=== PATIENT | female | born 1955 | race Asian ===

== ENCOUNTER 2016-08-19 07:30 | Inpatient (IN) | payer OTHER ==
[2016-04-29 13:32] VITALS: BMI 32.0
--- NOTE | 2016-04-29 14:02 | PAT Medication Instructions ---
Service Date Apr 29, 2016. Current Home Medication List Acetaminophen-Aspirin Buffered (Excedrin Back & Body), 2 TAB PO BID PRN for RN Glucosamine-Chondroitin (Glucosamine & Chondroitin 500-400 mg), 1 TAB PO QPM Medication Instructions For Your Scheduled Surgery - Hold the following medications 2 weeks prior to surgery: Glucosamine-Chondroitin (Glucosamine & Chondroitin 500-400 mg), 1 TAB PO QPM Acetaminophen-Aspirin Buffered (Excedrin Back & Body), 2 TAB PO BID PRN for RN ( check with surgeon for instructions) If you have any questions please call us at [phone] (Kayla Bauer PA-C) or [phone] or [phone]
--- NOTE | 2016-04-29 14:53 | DIAGNOSTIC IMAGING REPORT ---
CHEST 2 VIEWS ROUTINE CLINICAL HISTORY: PAT preoperative evaluation COMPARISON STUDY: No previous studies for comparison. FINDINGS: The bones soft tissues and hemidiaphragms are normal. The cardiomediastinal silhouette is normal. The lungs are clear. The pulmonary vasculature is normal. IMPRESSION: Negative chest. Electronically signed by: Fer Caceres M.D. 04/29/2016 2:51 PM
[2016-04-29 14:56] LABS: BASO % 0.7 %; BASO ABS # 0.04 K/uL (0-0.2); EOS % 4.1 %; HEMATOCRIT 40.1 % (37-47); LYMPH % 40.1 %; LYMPH ABS # 2.27 K/uL (1.2-3.4); MEAN CELL VOLUME 60.2 fL (80-100); MEAN CORPUSCULAR HEMOGLOBIN 18.6 pg (25-34); MEAN CORPUSCULAR HGB CONC 30.9 g/dl (32-36); MONO % 9.5 %; NEUT % 45.6 %; PLATELET COUNT 246 K/uL (130-400); RED BLOOD COUNT 6.66 M/uL (4.2-5.4); WHITE BLOOD COUNT 5.66 K/uL (4.8-10.8)
[2016-04-29 15:16] LABS: COMPLETE YES; MICROCYTOSIS PRESENT
[2016-04-29 15:23] LABS: BUN/CREATININE RATIO 41.5 (10-20); CALCIUM 9.3 mg/dl (8.5-10.1); CREATININE 0.67 mg/dl (0.60-1.20); POTASSIUM 3.9 mmol/L (3.5-5.1)
[2016-04-29 15:41] LABS: MANUAL MICROSCOPIC REQUIRED? YES; URINE APPEARANCE CLEAR (CLEAR); URINE BILIRUBIN NEG (NEG); URINE COLOR YELLOW; URINE NITRITE NEG (NEG); URINE PH 5.5 (4.5-7.5); URINE SPECIFIC GRAVITY 1.025 (1.000-1.030); UROBILINOGEN NEG (NEG)
[2016-04-29 15:42] LABS: REVIEW REQ? NO
[2016-04-29 15:59] LABS: URINE BACTERIA NEG (NEG); URINE RBC 0-4 /hpf (0-4)
[2016-08-10 12:06] VITALS: BMI 32.0
[2016-08-10 16:34] LABS: BASO % 0.5 %; BASO ABS # 0.04 K/uL (0-0.2); HEMATOCRIT 39.5 % (37-47); IG% 0.1 %; LYMPH % 31.6 %; LYMPH ABS # 2.37 K/uL (1.2-3.4); MEAN CELL VOLUME 59.8 fL (80-100); MEAN CORPUSCULAR HEMOGLOBIN 18.8 pg (25-34); MEAN CORPUSCULAR HGB CONC 31.4 g/dl (32-36); MONO % 5.5 %; NEUT % 58.3 %; PLATELET COUNT 240 K/uL (130-400); WHITE BLOOD COUNT 7.49 K/uL (4.8-10.8)
[2016-08-10 16:56] LABS: COMPLETE YES; MICROCYTOSIS PRESENT; POLYCHROMASIA 1+; TARGET CELLS 1+
[2016-08-10 17:58] LABS: BUN/CREATININE RATIO 24.6 (10-20); CALCIUM 9.2 mg/dl (8.5-10.1); CREATININE 0.65 mg/dl (0.60-1.20); POTASSIUM 4.2 mmol/L (3.5-5.1)
[2016-08-10 18:59] LABS: URINE APPEARANCE CLEAR (CLEAR); URINE BILIRUBIN NEG (NEG); URINE COLOR YELLOW; URINE EPITHELIAL CELL AUTO 0-5 /lpf (0-5); URINE NITRITE NEG (NEG); URINE SPECIFIC GRAVITY 1.013 (1.000-1.030); UROBILINOGEN NEG (NEG)
[2016-08-10 19:01] LABS: MANUAL MICROSCOPIC REQUIRED? NO; REVIEW REQ? NO
--- NOTE | 2016-08-18 13:03 | HISTORY & PHYSICAL EXAMINATION ---
DATE OF ADMISSION: 08/19/2016 The patient presents to our office with complaint of back and bilateral leg pain, specifically proximal thighs and groin. These are reproduced with prolonged standing and walking. She does obtain some relief when sitting in a recliner. This has become progressive over the years. She has trialed epidural injections in the past with Dr. Zayas, which failed to provide long-term relief. She takes Excedrin and Tylenol for pain control. Denies bowel or bladder dysfunction. MEDICAL HISTORY: The patient's medical history is significant for cancer 2004, spinal stenosis. SURGICAL HISTORY: Significant for cataracts, total OHE, tonsillectomy. ALLERGIES: None listed. MEDICATIONS: Excedrin. SOCIAL HISTORY: She is single. She does not work. Alcohol is social. Tobacco none. FAMILY HISTORY: Significant for diabetes, hypertension and stroke. REVIEW OF SYSTEMS: Significant for none listed. PHYSICAL EXAMINATION: VITAL SIGNS: 5 foot 5, 195 pounds. HEENT: Speech appropriate. CARDIOPULMONARY: No gross abnormalities. ABDOMEN: Soft, nondistended. GENITOURINARY: Deferred. NEUROLOGIC: Cranial nerves II-XII grossly intact. MUSCULOSKELETAL: She ambulates with a stooped posture, strength is intact bilaterally. No ankle clonus. Negative tension signs. ASSESSMENT: Degenerative scoliosis, spinal stenosis, spondylolisthesis, multilevel. PLAN: At this point in time, we have reviewed surgical intervention which would require lumbar decompression with instrumented fusion T12-L4. Risks, benefits, pros, cons, and alternatives were outlined in detail. She would like to proceed with the above-mentioned surgical planning.
[~2016-08-19] VITALS: Ht 165.1 cm; Wt 94.3 kg
[2016-08-19] VITALS (12 sets, daily range): BP systolic 90–156; BP diastolic 61–84; PULSE 88–107; TEMP 36.3–36.8; O2SAT 94–100; Ht 165.1 cm; Wt 94.3 kg
[~2016-08-19 07:30] MED LIST: ACETTAB19 PO; CEFAZOLIN 1000MG/55 ML D5W IV SCH; LACTATED RINGER'S 1000ML 1,000 ML IV SCH; METO25TA3 PO
--- NOTE | 2016-08-19 07:31 | History & Physical Bridge Note ---
H&P Re-Evaluation Bridge Note: I have examined the patient, reviewed the History & Physical and in the interval since the performance of the History & Physical I have noted the following changes of clinical significance: No changes noted
[2016-08-19] MEDS ORDERED: FENTANYL CITRATE INJ 50 MCG/1 ML 2 ML VIAL ONE ×2 (08:25→08:39)
[2016-08-19] MEDS ORDERED: LIDOCAINE HCL 2% 2 ML VIAL (20MG/ML) ONE ×2 (08:25→10:45)
[2016-08-19] MEDS ORDERED: HYDROmorphone INJ 2 MG/ML SYR/VIAL ONE (08:39)
[2016-08-19] MEDS ORDERED: MIDAZOLAM HCL 1 MG/ML 2ML VIAL ONE (08:39)
[2016-08-19] MEDS ORDERED: SODIUM CHLORIDE 0.9% PF 50 ML VIAL ONE (09:17)
[2016-08-19] MEDS ORDERED: BUPIVACAINE/EPINEPHRINE 0.5% MPF 1:200,000 30 ML VIAL ONE (09:17)
[2016-08-19] MEDS ORDERED: ALBUMIN HUMAN 5% 12.5 GM/250 ML VIAL IV ONE (09:49)
[2016-08-19] MEDS ORDERED: LACTATED RINGER'S 1000ML 1,000 ML IV PRN (09:58)
[2016-08-19] MEDS ORDERED: FENTANYL CITRATE INJ 50 MCG/1 ML 2 ML VIAL IV PRN (10:00)
[2016-08-19] MEDS ORDERED: MoRPHine SULFATE 10 MG/ML CARP/VIAL IV PRN (10:00)
[2016-08-19] MEDS ORDERED: ONDANSETRON INJ 2 MG/ML 2 ML VIAL IV PRN ×2 (10:00→12:45)
[2016-08-19] MEDS ORDERED: DEXAMETHASONE SOD INJ 4 MG/ML VIAL ONE (10:45)
[2016-08-19] MEDS ORDERED: ROCURONIUM BROMIDE 10 MG/ML 5 ML VIAL ONE (10:45)
[2016-08-19] MEDS ORDERED: PHENYLEPHRINE 100MCG/ML 5ML SYR ONE (10:45)
[2016-08-19] MEDS ORDERED: PROPOFOL IV EMULSION 10 MG/ML 20 ML VIAL IV ONE (10:45)
[2016-08-19] MEDS ORDERED: PHENYLEPHRINE HCL INJ 10 MG/ML VIAL ONE (10:45)
[2016-08-19] MEDS ORDERED: ONDANSETRON INJ 2 MG/ML 2 ML VIAL ONE (10:45)
[2016-08-19] MEDS ORDERED: LARYING-O-JET KIT (LTA) EXT ONE ×2 (11:07)
[2016-08-19] MEDS ORDERED: CEFAZOLIN SOD 1 GM VIAL ONE (11:07)
[2016-08-19 11:41] LABS: ISTAT CREATININE 0.5 mg/dl (0.6-1.3); ISTAT HEMOGLOBIN 11.2 g/dl (12.0-16.0); ISTAT IONIZED CALCIUM 1.11 mmol/l (1.12-1.32)
[2016-08-19] MEDS ORDERED: GLYCOPYRROLATE INJ 0.2 MG/ML VIAL ONE (11:44)
[2016-08-19] MEDS ORDERED: NEOSTIGMINE METHYLSULFATE 1 MG/ML 10ML VIAL ONE (11:44)
[2016-08-19] MEDS ORDERED: METOPROLOL TARTRATE 1 MG/ML VIAL ONE (11:53)
[2016-08-19] MEDS ORDERED: FLOSEAL HEMOSTATIC MATRIX 10ML TOP ONE (12:37)
[2016-08-19] MEDS ORDERED: BACITRACIN 50,000 UNITS IR ONE (12:37)
[2016-08-19] MEDS ORDERED: SODIUM CHLORIDE 0.9% 1000ML 1,000 ML IV SCH (12:38)
--- NOTE | 2016-08-19 12:38 | [facility] Post Operative Brief Note ---
Immediate Operative Summary Operative Date Aug 19, 2016. Pre-Operative Diagnosis Degenerative scoliosis, spinal stenosis, spondylolisthesis, multilevel Post-Operative Diagnosis Degenerative scoliosis, spinal stenosis, spondylolisthesis, multilevel Procedure(s) Performed T11-L4 Lumbar Laminectomy, Decompression, Pedicle Screw Fixation, Placement of Interbody Device at L2-L3 and L3-L4, T11-L4 Posterolateral Fusion, Application of Susan Autograft, Bone Morphogenetic Protein, Iliac Kinzers Fixation Surgeon Dr. Domenico Kebede Floor Mechanic Surgeon(s) Margaret Alcala PA-C Estimated Blood Loss 950mL Findings scoli/stenosis Specimens None per surgeon
[2016-08-19] MEDS ORDERED: SOD PHOSPHATE/SOD BIPHOSPHATE ENEMA 132 ML BTL PR PRN (12:45)
[2016-08-19] MEDS ORDERED: LORAZEPAM INJ 0.5 MG in SYRINGE 0 ML IV PRN (12:45)
[2016-08-19] MEDS ORDERED: PROMETHAZINE HCL INJ 12.5 MG in SODIUM CHLORIDE 0.9% 50ML 50 ML IV PRN (12:45)
[2016-08-19] MEDS ORDERED: DO NOT ADMINISTER FLU VACCINE PRN ×3 (12:45)
[2016-08-19] MEDS ORDERED: hydrOXYzine HCL 25 MG TAB PO PRN (12:45)
[2016-08-19] MEDS ORDERED: ALUMINUM/MAGNESIUM SUSP 30 ML UDC PO PRN (12:45)
[2016-08-19] MEDS ORDERED: ACETAMINOPHEN IV 100 ML IV PRN (12:45)
[2016-08-19] MEDS ORDERED: DO NOT ADMINISTER PNEUMOCOCCAL VACCINE PRN ×2 (12:45)
[2016-08-19] MEDS ORDERED: METOCLOPRAMIDE HCL INJ 5 MG/ML 2 ML VIAL IV PRN (12:45)
[2016-08-19] MEDS ORDERED: MAGNESIUM HYDROXIDE SUSP 30 ML UDC PO PRN (12:45)
[2016-08-19] MEDS ORDERED: FAMOTIDINE 20 MG TAB PO PRN (12:45)
[2016-08-19] MEDS ORDERED: BISACODYL 10 MG SUPP PR PRN (12:45)
[2016-08-19] MEDS ORDERED: NALOXONE HCL 0.4 MG/1 ML VIAL/CARP IV PRN ×2 (12:45)
--- NOTE | 2016-08-19 12:48 | DIAGNOSTIC IMAGING REPORT ---
INTRAOPERATIVE FLUOROSCOPIC IMAGES OF THE LUMBAR SPINE CLINICAL HISTORY: T11-L4 DECOMPRESSION/FUSION/INTERBODY COMPARISON STUDY: No previous studies for comparison. Fluoroscopy time: 40 seconds. FINDINGS: 5 fluoroscopic images were submitted for interpretation. Exact localization is difficult on this exam although there is a 2 level discectomy, likely at the L2-L3 and L3-L4 levels with interbody spacer placement. There are bilateral pedicle screws which are likely at the T11, T12, L1, L2, L3 and L4 levels. IMPRESSION: Findings consistent with L2-L3 and L3-L4 discectomies with T11-L4 bilateral pedicle screw fusion. Electronically signed by: Ciro Ward M.D. 08/19/2016 12:46 PM Dictated Date/Time: 08/19/2016 12:44 PM
--- NOTE | 2016-08-19 13:03 | OPERATIVE REPORT ---
DATE OF OPERATION: 08/19/2016 PREOPERATIVE DIAGNOSES: Spinal stenosis, degenerative scoliosis, spondylolisthesis. POSTOPERATIVE DIAGNOSES: Same. PROCEDURE PERFORMED: 1. Lumbar decompression, medial facetectomy, and foraminotomy L1-L2, L2-L3, L3-L4. 2. Posterior spinal fusion T10-L4. 3. Placement posterior segmental instrumentation using Medicrea rods and screws T11 to L4. 4. Interbody fusion L2-L3, L3-L4. 5. Placement of PEEK cage 10 x 26 at L2-L3, 9 x 26 at L3-L4. 6. Placement of locally harvested morcellized autograft in posterior gutters. 7. Placement of Infuse collagen sponge combined with Mastergraft in posterior gutters and Susan bone graft in the interbody spacers. SURGEON: Dr. Domenico Kebede. BEAN SNIPPER: Due to the complex nature of the procedure, the entire surgery was performed with the medical assistant ob gyn of Margaret Cobian PA-C. The assistant case manager, under direct supervision, was involved in the actual performance of all aspects of the surgical procedure including hemostasis, tissue retraction and incision, instrument management, patient positioning, and wound closure. ANESTHESIA: General. DISPOSITION: The patient awakened and taken to PACU in stable condition. HISTORY OF PATIENT'S PROBLEMS: This is a 61-year-old female who presents with above-mentioned diagnosis. After failing an extensive course of nonoperative care, elected to undergo the above-mentioned procedure. Risks, benefits, pros, cons, and alternatives were outlined in detail preoperatively. PROCEDURE: The patient was met preoperatively and the case discussed and all questions were addressed. At that point the patient was taken back to operative suite and after undergoing successful general intubation via department of anesthesia was placed in prone position on Alli table atop Murphy frame. All bony prominences were well padded and the eyes were inspected to ensure there was no external pressure placed upon them. At this point the thoracolumbar spine was prepped and draped in normal sterile fashion. Sharp dissection with the assistance of Bovie cautery was performed down to and exposing the lamina and transverse processes of T10, T11, 12, L1, L2, L3 and L4. From a caudal to cephalad fashion, complete laminectomy of L3, L2 and L1 was performed addressing severe lateral recess foraminal disease. Pedicle screws were then placed in T11, 12, L1, L2, L3, L4 bilaterally with assistance of fluoroscopy and through a transforaminal approach on the right, a complete diskectomy of L2-3 was performed, endplates curetted to subcortical bleeding bone and a 10 x 26 mm PEEK cage filled with Susan bone grafting tapped into position. I then proceeded L3-L4 on the left through a transforaminal approach a complete discectomy was performed, endplates curetted to subcortical bleeding bone and a 9 x 26 mm PEEK cage filled with Susan bone grafting tapped into position. Appropriate sized rods were then contoured, locked into final position bilaterally and transverse processes and lamina of T10, T11, T12, L1, L2, L3, L4 burred to subcortical bleeding bone. Infuse collagen sponge combined with Mastergraft and locally harvested morcellized autograft was placed in the posterior gutters. A 7 flat SARAH drain was inserted. Incision was closed with 1-0 Vicryl in the fascia, 2-0 Vicryl subcutaneously, 4-0 Monocryl for final skin closure. Steri-Strips and sterile dressing was placed. The patient was awakened and taken to PACU in stable condition. I attest to the content of the Intraoperative Record and any orders documented therein. Any exceptio ns are noted below.
[2016-08-19] MEDS ORDERED: HYDROmorphone HCL 0.5MG/ML 50 ML CASSETTE ONE (13:13)
--- NOTE | 2016-08-19 14:14 | Anesthesiology Progress Note ---
Anesthesia Post Op Note Date & Time Aug 19, 2016 at 14:12 Vital Signs Pain Intensity: 5 Vital Signs Past 12 Hours Date Time Temp Pulse Resp B/P Pulse Ox O2 Delivery O2 Flow Rate FiO2 08/19/16 14:03 36.6 88 16 107/67 100 Mask 5 08/19/16 13:58 105/63 08/19/16 13:57 89 10 08/19/16 13:57 89 10 100 08/19/16 13:53 101/59 08/19/16 13:52 90 12 08/19/16 13:52 90 12 08/19/16 13:48 100/55 08/19/16 13:47 87 11 08/19/16 13:47 87 11 08/19/16 13:46 101/55 08/19/16 13:43 100/58 08/19/16 13:42 88 18 08/19/16 13:42 89 18 08/19/16 13:41 90 14 100 08/19/16 13:41 89 14 08/19/16 13:38 99/63 08/19/16 13:36 89 21 100 08/19/16 13:36 88 21 08/19/16 13:33 106/66 08/19/16 13:31 84 18 100 08/19/16 13:31 85 18 08/19/16 13:29 107/67 08/19/16 13:26 89 16 100 08/19/16 13:26 88 16 08/19/16 13:23 97/58 08/19/16 13:21 89 15 100 08/19/16 13:21 89 15 08/19/16 13:20 108/66 08/19/16 13:15 91 15 111/67 100 Mask 10 08/19/16 13:11 36.4 90 12 108/66 100 Mask 10 08/19/16 07:50 36.8 107 20 152/84 96 Room Air Notes Mental Status: alert / awake / arousable, participated in evaluation Pt Amnestic to Procedure: Yes Nausea / Vomiting: adequately controlled Pain: adequately controlled Airway Patency, RR, SpO2: stable & adequate BP & HR: stable & adequate Hydration State: stable & adequate Anesthetic Complications: no major complications apparent Pt doing well. Hemodynamically stable. On O2 via facemask only because she does not tolerate a nasal cannula which she told us pre-op. Dr. Kebede asked for one unit of RBCs to be given intra-op given the pt's HOCM, phenylephrine requirement , and EBL of about 1000 mL.
[2016-08-19] MEDS: HYDROmorphone HCL 0.5MG/ML 50 ML CASSETTE IV PRN ×2 (15:03→23:15)
[2016-08-19] MEDS ORDERED: NURSING DECISION MEDICATION ORDER SCH (15:45)
[2016-08-19] MEDS ORDERED: ARTIFICIAL TEARS OP SOLN OP PRN ×2 (15:45)
[2016-08-19] MEDS ORDERED: RXC5 PO (16:00)
--- NOTE | 2016-08-19 16:01 | Discharge Instructions ---
Discharge Instructions Admission Reason for Admission: Spinal Stenosis Discharge Discharge Diagnosis / Problem: stenosis Discharge Goals Goal(s): Improve function Activity Recommendations Activity Limitations: per Instructions/Follow-up section . Instructions / Follow-Up Instructions / Follow-Up ACTIVITY RECOMMENDATIONS: SELF CARE INSTRUCTIONS AFTER THORACIC/LUMBAR FUSIONS 1. You may walk to your tolerance. It is good exercise for your legs and back. Expect some back and intermittent leg aches and pains. 2. You may perform "counter-top" level activities (make a sandwich, ji with a project, etc.). 3. No bending or lifting of more than 10 pounds or back twisting of any nature (roll like a log when turning in bed). 4. You may ride in a car for 20-30 minutes at a time. No driving until after your first visit with your doctor. 5. Frequent changes of position and restricting sitting to 30 minutes at a time will help limit the amount of back spasms and stiffness you may experience. 6. You may discontinue the use of ambulatory aids (cane, crutches, etc.) once your strength and confidence allow. 7. You may digital x ray service engineer the shower and let water strike your incision when you arrive home at least once daily. Do not take a tub bath, sit in a hot tub or go into a swimming pool until after your first recheck in the office. SPECIAL CARE INSTRUCTIONS: VERY IMPORTANT TO READ AND REVIEW A. Your surgical incision has been closed with a cosmetic suture under the skin that will dissolve in about 6 weeks. In 14 days, you can use a pair of clean scissors and cut the suture that is left outside of the skin at the ends of your incision. 1. The small skin tapes can be removed 7 days after surgery if they have not fallen off by that point. 2. You may keep the wound open to air as much as possible to promote healing after post-op day number 5 unless told otherwise by your doctor. 3. If you think the wound looks like it is becoming infected (redness or worsening drainage) and/or you are experiencing fever, chill or worsening back pain and muscle spasms, contact the office so that we may evaluate you as soon as possible. B. Complications are uncommon, but please contact us if you have any signs or symptoms of: 1. wound infection (fever higher than 102.5 degrees F, redness, separation of wound, drainage, or increasing pain from the incision) 2. blood clots in legs (pain, swelling, redness and warmth in legs) 3. urinary tract infection (fever higher than 102.5 degrees F, burning upon urination or increased frequency of urination) 4. nerve problems (inability to walk on your toes or heels, numbness, loss of bowel or bladder control) 5. any other symptoms that concern you C. Please call the office at if you have any concerns or questions about your operation or recovery. D. No smoking! Smoking drastically decreases the chance of a solid fusion. E. Do not take any anti-inflammatory medications (Indocin, Advil, Motrin, Aspirin, Naprosyn, etc.) as these may inhibit the chance of a solid fusion. Tylenol is okay to take for pain. MANAGING PAIN AFTER SPINAL SURGERY 1. Narcotic medication is intended for short-term use and will be provided for surgical pain. Surgical pain usually lasts for a period of 4-6 weeks. Narcotic medication includes Percocet, Vicodin, Darvocet, Tylenol #3 or Lortab. 2. Longer-term pain is more appropriately treated with non-narcotic medication such as Tylenol ES. 3. Muscle spasm is not appropriately treated with narcotics. Muscle relaxers such as Soma, Flexeril or Skelaxin can be used along with Tylenol ES. 4. Remember that we all live with some "aches and pains". This is not unusual or uncommon after an injury or as we get older. a. Back pain is expected and may include muscle spasms for 4 to 6 weeks after surgery. The pain should gradually improve. If the pain worsens for no apparent reason, please contact the office. b. Intermittent leg pain may also be experienced and should not be concerned about unless it worsens for no apparent reason. If so, please contact the office. 5. We will provide appropriate medication within the normal guidelines of their prescribed use. We will also be very cautious and aware of potential abuse and extended duration of patients' medication needs. a. Pain medications are for your comfort and to assist with sleep and rest so that the tissue can heal. They are not provided in order to return to normal activity and should not be used through the day. To do so or worsening pain at night can result from ongoing tissue damage and development of tolerance to the prescribed medicine. 6. Please allow 2-3 days to process refills. Prescriptions will not be mailed but must be picked up at the office. FOLLOW UP VISIT: Keep your scheduled follow-up appointment. Any questions, please call the office at . Current Hospital Diet Patient's current hospital diet: Regular Diet Discharge Diet Recommended Diet: Regular Diet Procedures Procedures Performed: T11-L4 Lumbar Laminectomy, Decompression, Pedicle Screw Fixation, Placement of Interbody Device at L2-L3 and L3-L4, T11-L4 Posterolateral Fusion, Application of Susan Autograft, Bone Morphogenetic Protein, Iliac Warren Fixation Pending Studies Studies pending at discharge: no Medical Emergencies . Who to Call and When: Medical Emergencies: If at any time you feel your situation is an emergency, please call 911 immediately. . Non-Emergent Contact Non-Emergency issues call your: Primary Care Provider . "Provider Documentation" section prepared by Domenico Kebede. VTE Core Measure Inpt VTE Proph given/why not?: Marshal Castillo, SCD's
[2016-08-19] MEDS: LACTATED RINGER'S 1000ML 1,000 ML IV SCH ×2 (16:48→22:42)
[2016-08-19] MEDS: CEFAZOLIN IV 2,000 MG in DEXTROSE 5% 50ML 50 ML IV SCH (18:04)
[2016-08-19] MEDS: DEXAMETHASONE INJ 6 MG in SYRINGE 0 ML IV SCH (18:04)
--- NOTE | 2016-08-19 19:43 | Medical Consult ---
History General Date of Service: Aug 19, 2016. Stated Complaint: Spinal Stenosis HPI The patient is a 61 year old female who presents to [facility] with complaints of Spinal Stenosis. Pt admitted for elective lumber spinal decompression fusion procedure by Dr Kebede for chronic low back pain , failed conservative approach under went surgery earlier seen post op very groggy form pain medications denies of any chest pain or SOB , no complain of back pain at surgical site Historian: patient Review of Systems Constitutional: denies: as stated in HPI, chills, diaphoresis, fever, malaise, no symptoms, other, weakness, weight gain, weight loss Eyes: denies: as stated in HPI, blurred vision, discharge, double vision, eye pain, itching, no symptoms, other, photophobia, redness, tearing, visual changes ENT: denies: as stated in HPI, dental pain, ear discharge, ear pain, epistaxis , gum swelling, loss of hearing, mouth pain, mouth swelling, nasal congestion, nasal pain, no symptoms, other, rhinorrhea, sore throat, stridor, throat swelling, tinnitus Cardiovascular: denies: as stated in HPI, chest pain, chest pressure, chest tightness, diaphoresis, edema, intermittent claudication, no symptoms, orthopnea , other, palpitations, syncope Respiratory: denies: LE, PND, as stated in HPI, cough, cyanosis, hemoptysis, no symptoms, orthopnea, other, shortness of breath, sputum production, stridor, wheezing Musculoskeletal: reports: other (chronic low back pain s/p surgery ) Family History FH: diabetes mellitus FH: hypertension Social History Hx Tobacco Use In Past Year?: No Smoking Status: Never Smoker Occupational Status: unemployed History of MDRO History of MDRO: No Allergies Coded Allergies: Ciprofloxacin (Verified Allergy, Mild, FEET SWOLLEN AND UNABLE TO WALK, 08/19/16) Current Medications Reported Home Medications Medications Dose Route/Sig Max Daily Dose Days Date Category Oxycodone HCl 5 Mg Tab 5-10 Mg PO Q4H PRN 30 08/19/16 Rx Toprol Xl (Metoprolol Succinate) 25 Mg Tabcr 25 Mg PO QAM 08/10/16 Reported Excedrin Back & Body (Acetaminophen-Aspirin Buffered) 1 Tab Tab 2 Tab PO BID PRN 04/29/16 Reported Physical Physical Exam Vital Signs: Date Time Temp Pulse Resp B/P Pulse Ox O2 Delivery O2 Flow Rate FiO2 08/19/16 19:20 36.5 88 17 156/84 94 Room Air 08/19/16 18:38 91 106/69 08/19/16 18:09 36.4 99 19 98/65 99 Nasal Cannula 4.0 08/19/16 17:09 109/67 08/19/16 17:04 36.5 99 16 90/61 98 Venturi Mask 4.0 08/19/16 16:01 36.3 97 16 99/63 100 Venturi Mask 4.0 08/19/16 15:30 36.3 93 17 102/67 99 Venturi Mask 4.0 08/19/16 15:00 36.4 93 16 106/69 99 Mask 5.0 08/19/16 15:00 Mask 5.0 08/19/16 15:00 Mask 5.0 08/19/16 14:03 36.6 88 16 107/67 100 Mask 5 08/19/16 13:58 105/63 08/19/16 13:57 89 10 08/19/16 13:57 89 10 100 08/19/16 13:53 101/59 08/19/16 13:52 90 12 08/19/16 13:52 90 12 08/19/16 13:48 100/55 08/19/16 13:47 87 11 08/19/16 13:47 87 11 08/19/16 13:46 101/55 08/19/16 13:43 100/58 08/19/16 13:42 88 18 08/19/16 13:42 89 18 08/19/16 13:41 90 14 100 08/19/16 13:41 89 14 08/19/16 13:38 99/63 08/19/16 13:36 89 21 100 08/19/16 13:36 88 21 08/19/16 13:33 106/66 08/19/16 13:31 84 18 100 08/19/16 13:31 85 18 08/19/16 13:29 107/67 08/19/16 13:26 89 16 100 08/19/16 13:26 88 16 08/19/16 13:23 97/58 08/19/16 13:21 89 15 100 08/19/16 13:21 89 15 08/19/16 13:20 108/66 08/19/16 13:15 91 15 111/67 100 Mask 10 08/19/16 13:11 36.4 90 12 108/66 100 Mask 10 08/19/16 07:50 36.8 107 20 152/84 96 Room Air General Appearance: NO APPARENT DISTRESS, other (groggy due to pain meds ) Head: NORMOCEPHALIC, ATRAUMATIC Eyes: SCLERAE NORMAL Neck: TRACHEA MIDLINE, SUPPLE Respiratory: BREATH SOUNDS NORMAL, CLEAR TO AUSCULTATION, NO RESPIRATORY DISTRESS Cardiovasular: REGULAR RATE/RHYTHM, NORMAL S1S2, NORMAL PERIPHERAL PULSES Abdomen: NON TENDER, NORMAL BOWEL SOUNDS Back: other (s/p lumber spinal decompression surgery , drain present ) Lower Extremities: NO EDEMA Neuro: NORMAL SPEECH, other (no focal neurological deficit ) Psychiatric: NORMAL AFFECT Diagnostics Labs Results Past 24 Hours Test 08/19/16 11:26 Range/Units Bedside Hemoglobin 11.2 12.0-16.0 g/dl Bedside Hematocrit 33 37-47 % Bedside Sodium 136 135-144 mEq/L Bedside Potassium 4.2 3.3-5.0 mEq/L Bedside Chloride 110 101-112 mEq/L Bedside Total CO2 26 24-31 mEq/l Anion Gap 5.0 16-25 mmol/L Bedside Blood Urea Nitrogen 17 7-18 mg/dl Bedside Creatinine 0.5 0.6-1.3 mg/dl Bedside Glucose (other) 142 70-99 mg/dl Bedside Ionized Calcium (Cullen) 1.11 1.12-1.32 mmol/l Diagnostic Radiology INTRAOPERATIVE FLUOROSCOPIC IMAGES OF THE LUMBAR SPINE CLINICAL HISTORY: T11-L4 DECOMPRESSION/FUSION/INTERBODY COMPARISON STUDY: No previous studies for comparison. Fluoroscopy time: 40 seconds. FINDINGS: 5 fluoroscopic images were submitted for interpretation. Exact localization is difficult on this exam although there is a 2 level discectomy, likely at the L2-L3 and L3-L4 levels with interbody spacer placement. There are bilateral pedicle screws which are likely at the T11, T12, L1, L2, L3 and L4 levels. IMPRESSION: Findings consistent with L2-L3 and L3-L4 discectomies with T11-L4 bilateral pedicle screw fusion. Impression Assessment and Plan LUMBER SPINAL STENOSIS : s/p Lumber decompression fusion with instrumentation T12 -L4 by Dr Kebede POD # 1 recovering well post op pain is adequately controlled follow H&H in AM to assess evidence of blood loss anemia post operatively PT/OT /activity as per Ortho recommendation HX OF HYPERTROPHIC CARDIOMYOPATHY : Cardiac MRI on 06/12/2016 : severe asymmetric hypertrophy of the basal septum , maximal thickness 19 mm with systolic anterior motion of Mitral valve leaflet EF 64 % pt been followed with [facility] Dr Fuchs has been asymptomatic no complain of chest pain , SOB , dizzy spell or syncope had pre op evaluation done on -found to be in acceptable risk for elective spinal decompression surgery recommended Pt to be continued with Beta dwaine with out any interruption avoid any event of volume depletion Small PFO noted on ECHO /Cardiac imaging : pt has been on Aspirin , which has been kept on hold 7 days prior to surgery but per cardiology should be restarted as soon as possible post op when her Bleeding risk is acceptable from Orthopedics stand point . HX OF OVARIAN CA : s/p Hysterectomy and chemotherapy FULL CODE DVT PROPHYLAXIS ; as per Ortho scd and teds Pharmacological anticoagulation avoided due to recent spinal surgery DISPOSITION : per Primary team Thank you for allowing to participate in care for the patient , will continue to follow her during her Hospital course Dr Reaves will continue to follow the patient Admit To Med/Surg DVT Prophylaxis T.E.D. stockings, SCDs Additional Copies To Sy Fuchs, HeribertoO.
[2016-08-19] MEDS ORDERED: DOCUSATE SODIUM/SENNA 50/8.6MG TAB PO SCH (21:00)
[2016-08-20] VITALS (20 sets, daily range): BP systolic 92–124; BP diastolic 38–77; PULSE 94–107; TEMP 36.5–37.5; O2SAT 90–98
[2016-08-20] MEDS: DEXAMETHASONE INJ 6 MG in SYRINGE 0 ML IV SCH ×2 (02:07→13:36)
[2016-08-20] MEDS: CEFAZOLIN IV 2,000 MG in DEXTROSE 5% 50ML 50 ML IV SCH (02:07)
[2016-08-20] MEDS ORDERED: DC PCA ONE (06:00)
[2016-08-20] MEDS ORDERED: HYDROmorphone INJ 1 MG/ML SYR IV PRN (06:00)
[2016-08-20 06:02] LABS: BASO % 0.1 %; BASO ABS # 0.01 K/uL (0-0.2); HEMATOCRIT 28.5 % (37-47); IG% 0.1 %; LYMPH % 6.1 %; LYMPH ABS # 0.84 K/uL (1.2-3.4); MEAN CELL VOLUME 63.8 fL (80-100); MEAN CORPUSCULAR HEMOGLOBIN 19.9 pg (25-34); MEAN CORPUSCULAR HGB CONC 31.2 g/dl (32-36); MEAN PLATELET VOLUME 10.6 fL (7.4-10.4); MONO % 6.7 %; PLATELET COUNT 188 K/uL (130-400); RED BLOOD COUNT 4.47 M/uL (4.2-5.4); WHITE BLOOD COUNT 13.68 K/uL (4.8-10.8)
[2016-08-20] MEDS: LACTATED RINGER'S 1000ML 1,000 ML IV SCH (06:26)
--- NOTE | 2016-08-20 06:28 | Clinical Documentation Query ---
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 In your clinical opinion is this patient being managed for: ( ) Acute blood loss anemia treated with 1 unit of PRBC's. ( ) Other explanation of clinical findings (Please Explain) ( ) Unable to determine (Please Define) ( ) Need to Discuss ( ) Not Agree The medical record reflects the following clinical findings, treatment, and risk factors. Clinical Indicators: H&H has fallen since admission. Hgb 12.4->8.9, Hct 40.1->28.5. Sx EBL was noted at 950mls. Treatment: 1 unit of PRBC's Risk Factors: Age & surgery Please clarify and document your clinical opinion in the progress notes and discharge summary. Terms such as "probable", "suspected", "likely", "questionable", "possible", or "still to be ruled out" are acceptable. IF IN AGREEMENT, YOU MUST DOCUMENT ABOVE DIAGNOSTIC STATEMENT IN DAILY PROGRESS NOTES AND DISCHARGE SUMMARY. This document is not part of the patient's record. Thank You, Raciel Dupont, EDGAR [phone]
[2016-08-20] MEDS ORDERED: NURSING VERBAL MED ORDER ONE (06:30)
[2016-08-20 06:35] LABS: BUN/CREATININE RATIO 23.7 (10-20); CALCIUM 8.6 mg/dl (8.5-10.1); CREATININE 0.69 mg/dl (0.60-1.20); POTASSIUM 4.2 mmol/L (3.5-5.1)
[2016-08-20 06:38] LABS: COMPLETE YES; HYPOCHROMIA PRESENT; POLYCHROMASIA 1+; TARGET CELLS 1+; TEAR DROP CELLS 1+
--- NOTE | 2016-08-20 07:09 | Progress Note ---
Progress Note MEDICINE ATTENDING NOTE : AM LAB REVIEWED : HB 12.4 -> 8.9 TACHYCARDIC , HYPOTENSIVE BP 92/59 ACUTE BLOOD LOSS ANEMIA -POST OP -ordered for 2 units of PRBC to be transfused given HOCM very important to keep pt euvolemic HYPOTENSION : due to above , acute blood /volume loss given hx of HOCM with severe ROWAN ( systolic anterior motion of Mitral valve ) it is imperative to avoid hypotension /correction of vol loss DHARMESH to prevent cardiac decompensation ordered for IVF NSS 250 ml bolus PRBC transfusion then continue NSS 100 ml /hr afterwards will transfer pt to PCU for observation/cardiac monitoring till vitals stabilizes MILD LEUKOCYTOSIS : possible due to steroids ( getting Dexamethasone ) post spinal surgery follow CBC Dr Reaves will follow the patient today
[2016-08-20] MEDS ORDERED: SODIUM CHLORIDE 0.9% 250ML 250 ML IV SCH (07:15)
[2016-08-20] MEDS: SODIUM CHLORIDE 0.9% 1000ML 1,000 ML IV SCH ×3 (07:28→19:30)
[2016-08-20 07:34] LABS: HEMATOCRIT 28.8 % (37-47); MEAN CELL VOLUME 63.6 fL (80-100); MEAN CORPUSCULAR HEMOGLOBIN 19.6 pg (25-34); MEAN CORPUSCULAR HGB CONC 30.9 g/dl (32-36); MEAN PLATELET VOLUME 10.2 fL (7.4-10.4); PLATELET COUNT 196 K/uL (130-400); RED BLOOD COUNT 4.53 M/uL (4.2-5.4); WHITE BLOOD COUNT 14.35 K/uL (4.8-10.8)
[2016-08-20] MEDS: METOPROLOL SUCC 25MG EXT REL TAB PO SCH (08:42)
--- NOTE | 2016-08-20 08:48 | PROGRESS NOTE ---
DATE: 08/20/2016 Postop day 1. Back pain is controlled. Symptoms are improved. Vital signs stable. T-max 36.7. SARAH drained 190 mL. Hematocrit this a.m. is 28.8. PHYSICAL EXAMINATION: She is in bed, has good strength to testing. Appears comfortable. ASSESSMENT: Status post lumbar decompression and fusion. PLAN: At this time, in light of her cardiomyopathy and blood pressure modestly hypotensive it is felt that she would be best served in the unit. She is receiving a transfusion at this time. Hopefully will begin mobilization later today and physical therapy tomorrow.
[2016-08-20] MEDS: OXYCODONE HCL IR 5 MG TAB (IMMEDIATE RELEASE) PO PRN ×2 (12:41→19:28)
[2016-08-20] MEDS: DOCUSATE SODIUM/SENNA 50/8.6MG TAB PO SCH ×2 (13:35→19:28)
--- NOTE | 2016-08-20 18:22 | Progress Note ---
Internal Med Progress Note Date of Service: Aug 20, 2016. Provider Documentation: SUBJECTIVE: Patient is lying in her bed and is in no apparent distress. Pain has been increasing intermittently,. Denies any nausea/vomiting. No other new change or complaint. OBJECTIVE: Vital Signs-as noted below Examination: General Appearance: Alert/Awake and is in no apparent distress. Head: Normocephalic, Atraumatic Eyes: Normal Sclera ENT: Hearing is normal, Eras, Nose & Throat are normal looking. Neck: Supple, Midline trachea, No JVD. Respiratory: B/L Clear to auscultation. Cardiovascular: Tachycardic, Normal S1, S2. Abdomen: Soft, Non-tender, Normal bowel sounds present. Back: s/p lumber spinal decompression surgery , drain present. Lower Extremities: Moderate pulses, No pedal edema present. Neuro: Normal Speech, No neurologic symptoms. Psychiatric: Normal affect Lab data as noted below. ASSESSMENT & PLAN: Lumbar Spine Stenosis:s/p Lumber decompression fusion with instrumentation T12 - L4 by Dr Kebede. POD # 2 -Doing well post-operative -Pain is adequately controlled -PT/OT /activity as per Ortho recommendation Anemia Due to Blood Loss: Received PRBC transfusion. -Monitoring H/H closely. History Hypertrophic Cardiomyopathy: Cardiac MRI on 06/12/2016 : severe asymmetric hypertrophy of the basal septum , maximal thickness 19 mm with systolic anterior motion of Mitral valve leaflet. EF 64 %. Patient been followed with [facility] Dr Fuchs -She has been asymptomatic & has no complain of chest pain , SOB , dizzy spell or syncope -She had pre op evaluation done on -found to be in acceptable risk for elective spinal decompression surgery -Recommended Pt to be continued with Beta dwaine with out any interruption -Avoid any event of volume depletion Small PFO noted on ECHO /Cardiac imaging : pt has been on Aspirin , which has been kept on hold 7 days prior to surgery but per cardiology should be restarted as soon as possible post op when her Bleeding risk is acceptable from Orthopedics stand point . History Ovarian Cancer: Stable.s/p Hysterectomy and chemotherapy Code Status: FULL CODE DVT Prophylaxis ;As per Ortho. SCDs. Disposition: Discharge once is clinically stable. Thank you for this consultation. We will follow the patient with you during their hospital stay. You can reach a member of the [facility] Hospitalist Team 01/02 via pager @ . Vital Signs: Date Time Temp Pulse Resp B/P Pulse Ox O2 Delivery O2 Flow Rate FiO2 08/20/16 16:00 94 Room Air 08/20/16 15:31 37.2 94 15 117/69 94 08/20/16 12:45 37.3 97 18 118/52 94 08/20/16 12:00 Room Air 08/20/16 12:00 94 Room Air 08/20/16 11:45 37.4 98 18 116/59 93 08/20/16 11:15 37.4 106 18 96/38 93 08/20/16 10:45 37.2 107 18 106/77 93 08/20/16 10:30 37.1 107 18 100/72 94 08/20/16 10:14 37.5 105 18 124/63 94 08/20/16 09:47 37.3 102 18 119/65 93 08/20/16 09:15 37.5 105 18 115/65 93 08/20/16 08:45 37.2 102 18 110/72 92 08/20/16 08:27 36.5 102 18 103/64 98 08/20/16 08:16 36.5 96 18 116/74 96 08/20/16 07:57 36.5 99 18 110/69 08/20/16 07:53 36.5 93 17 94 08/20/16 07:30 Room Air 08/20/16 07:15 36.5 105 17 104/62 94 Room Air 08/20/16 06:15 92/59 08/20/16 06:10 104 121/75 95 Room Air 08/20/16 03:49 36.7 102 16 120/73 90 Room Air 08/20/16 00:20 Mask 5.0 08/19/16 23:22 36.7 101 14 106/71 96 Room Air 08/19/16 21:04 102 100/64 08/19/16 19:40 36.3 93 17 107/69 97 Room Air 08/19/16 18:38 91 106/69 Lab Results: Results Past 24 Hours Test 08/20/16 05:41 08/20/16 07:24 Range/Units White Blood Count 13.68 14.35 4.8-10.8 K/uL Red Blood Count 4.47 4.53 4.2-5.4 M/uL Hemoglobin 8.9 8.9 12.0-16.0 g/dL Hematocrit 28.5 28.8 37-47 % Mean Corpuscular Volume 63.8 63.6 80-100 fL Mean Corpuscular Hemoglobin 19.9 19.6 25-34 pg Mean Corpuscular Hemoglobin Concent 31.2 30.9 32-36 g/dl Platelet Count 188 196 130-400 K/uL Mean Platelet Volume 10.6 10.2 7.4-10.4 fL Neutrophils (%) (Auto) 87.0 % Lymphocytes (%) (Auto) 6.1 % Monocytes (%) (Auto) 6.7 % Eosinophils (%) (Auto) 0.0 % Basophils (%) (Auto) 0.1 % Neutrophils # (Auto) 11.90 1.4-6.5 K/uL Lymphocytes # (Auto) 0.84 1.2-3.4 K/uL Monocytes # (Auto) 0.91 0.11-0.59 K/uL Eosinophils # (Auto) 0.00 0-0.5 K/uL Basophils # (Auto) 0.01 0-0.2 K/uL RDW Standard Deviation 44.3 44.4 36.4-46.3 fL RDW Coefficient of Variation 19.5 19.5 11.5-14.5 % Immature Granulocyte % (Auto) 0.1 % Immature Granulocyte # (Auto) 0.02 0.00-0.02 K/uL Polychromasia 1+ Hypochromasia PRESENT Target Cells 1+ Tear Drop Cells 1+ Sodium Level 140 136-145 mmol/L Potassium Level 4.2 3.5-5.1 mmol/L Chloride Level 104 98-107 mmol/L Carbon Dioxide Level 27 21-32 mmol/L Anion Gap 9.0 3-11 mmol/L Blood Urea Nitrogen 16 7-18 mg/dl Creatinine 0.69 0.60-1.20 mg/dl Est Creatinine Clear Calc Drug Dose 93.4 ml/min Estimated GFR () 108.9 Estimated GFR (Non- 94.0 BUN/Creatinine Ratio 23.7 10-20 Random Glucose 138 70-99 mg/dl Calcium Level 8.6 8.5-10.1 mg/dl
[2016-08-20 21:00] LABS: HEMATOCRIT 31.7 % (37-47); MEAN CELL VOLUME 67.3 fL (80-100); MEAN CORPUSCULAR HEMOGLOBIN 21.9 pg (25-34); MEAN CORPUSCULAR HGB CONC 32.5 g/dl (32-36); PLATELET COUNT 171 K/uL (130-400); RED BLOOD COUNT 4.71 M/uL (4.2-5.4); WHITE BLOOD COUNT 14.07 K/uL (4.8-10.8)
[2016-08-21] VITALS (8 sets, daily range): BP systolic 126–134; BP diastolic 67–80; PULSE 76–108; TEMP 36.4–37.1; O2SAT 93–99
[2016-08-21] MEDS: OXYCODONE HCL IR 5 MG TAB (IMMEDIATE RELEASE) PO PRN ×4 (02:21→18:17)
[2016-08-21] MEDS: SODIUM CHLORIDE 0.9% 1000ML 1,000 ML IV SCH (03:30)
--- NOTE | 2016-08-21 04:47 | Clinical Documentation Query ---
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 In your clinical opinion is this patient being managed for: ( X ) "Acute" blood loss anemia treated with 3 units of PRBC's. ( ) Other explanation of clinical findings (Please Explain) ( ) Unable to determine (Please Define) ( ) Need to Discuss ( ) Not Agree The medical record reflects the following clinical findings, treatment, and risk factors. Clinical Indicators: H&H has fallen since admission. Hgb 12.4->8.9, Hct 40.1->28.5. Sx EBL was noted at 950mls. Hypotension (90/61) Treatment: 3 units of PRBC's, transfer to telemetry Risk Factors: Age & surgery Please clarify and document your clinical opinion in the progress notes and discharge summary. Terms such as "probable", "suspected", "likely", "questionable", "possible", or "still to be ruled out" are acceptable. IF IN AGREEMENT, YOU MUST DOCUMENT ABOVE DIAGNOSTIC STATEMENT IN DAILY PROGRESS NOTES AND DISCHARGE SUMMARY. This document is not part of the patient's record. Thank You, Raciel Dupont, RN [phone]
[2016-08-21] MEDS: POLYETHYLENE (MIRALAX) 17 GM PACK PO SCH ×3 (05:12→18:15)
[2016-08-21 07:40] LABS: HEMATOCRIT 32.1 % (37-47); MEAN CELL VOLUME 67.3 fL (80-100); MEAN CORPUSCULAR HEMOGLOBIN 21.6 pg (25-34); MEAN CORPUSCULAR HGB CONC 32.1 g/dl (32-36); PLATELET COUNT 164 K/uL (130-400); RED BLOOD COUNT 4.77 M/uL (4.2-5.4); WHITE BLOOD COUNT 13.68 K/uL (4.8-10.8)
[2016-08-21] MEDS: METOPROLOL SUCC 25MG EXT REL TAB PO SCH (08:09)
[2016-08-21] MEDS: DOCUSATE SODIUM/SENNA 50/8.6MG TAB PO SCH ×2 (08:09→21:24)
[2016-08-21 08:12] LABS: BUN/CREATININE RATIO 28.4 (10-20); CALCIUM 8.3 mg/dl (8.5-10.1); CREATININE 0.64 mg/dl (0.60-1.20)
--- NOTE | 2016-08-21 10:46 | PROGRESS NOTE ---
DATE: 08/21/2016 Overall, she is doing quite well today. Back pain controlled. Leg pain improved. Vital signs stable. T-max 37.1, stable blood pressure. SARAH drain appears to put out 50 mL upon inspection. Hematocrit this a.m. is 32.1. PHYSICAL EXAMINATION: She has good strength to testing, appears comfortable. ASSESSMENT: Status post thoracolumbar fusion. PLAN: At this time, continue to increase the bowel regimen and physical therapy as tolerated. Hopefully, she will be cleared by medicine today and be able to transfer to the orthopedic floor to engage in more physical therapy.
--- NOTE | 2016-08-21 12:11 | Progress Note ---
Internal Med Progress Note Date of Service: Aug 21, 2016. Provider Documentation: SUBJECTIVE: Patient is lying in her bed and is in no apparent distress. Pain has been tolerable today and she has been able to ambulate in the room. Denies any nausea/vomiting. Concerned about her BM.No other new change or complaint. OBJECTIVE: Vital Signs-as noted below Examination: General Appearance: Alert/Awake and is in no apparent distress. Head: Normocephalic, Atraumatic Eyes: Normal Sclera ENT: Hearing is normal, Eras, Nose & Throat are normal looking. Neck: Supple, Midline trachea, No JVD. Respiratory: B/L Clear to auscultation. Cardiovascular: Tachycardic, Normal S1, S2. Abdomen: Soft, Non-tender, Normal bowel sounds present. Back: s/p lumber spinal decompression surgery , drain present. Lower Extremities: Moderate pulses, No pedal edema present. Neuro: Normal Speech, No neurologic symptoms. Psychiatric: Normal affect Lab data as noted below. ASSESSMENT & PLAN: Lumbar Spine Stenosis:s/p Lumber decompression fusion with instrumentation T12 - L4 by Dr Kebede. POD # 3 -Doing well post-operative -Pain is adequately controlled -Already on bowel regimen -PT/OT /activity as per Ortho recommendation Acute Anemia Due to Acute Blood Loss: Received PRBC transfusion. -Monitoring H/H closely and is stabilizing. History Hypertrophic Cardiomyopathy: Cardiac MRI on 06/12/2016 : severe asymmetric hypertrophy of the basal septum , maximal thickness 19 mm with systolic anterior motion of Mitral valve leaflet. EF 64 %. Patient been followed with [facility] Dr Fuchs -She has been asymptomatic & has no complain of chest pain , SOB , dizzy spell or syncope -She had pre op evaluation done on -found to be in acceptable risk for elective spinal decompression surgery -Recommended Pt to be continued with Beta dwaine with out any interruption -Avoid any event of volume depletion Small PFO noted on ECHO /Cardiac imaging : pt has been on Aspirin , which has been kept on hold 7 days prior to surgery but per cardiology should be restarted as soon as possible post op when her Bleeding risk is acceptable from Orthopedics stand point . History Ovarian Cancer: Stable.s/p Hysterectomy and chemotherapy Code Status: FULL CODE DVT Prophylaxis ;As per Ortho. SCDs. Disposition: Discharge once is clinically stable. Thank you for this consultation. We will follow the patient with you during their hospital stay. You can reach a member of the [facility] Hospitalist Team 01/02 via pager @ . Vital Signs: Date Time Temp Pulse Resp B/P Pulse Ox O2 Delivery O2 Flow Rate FiO2 08/21/16 12:01 Room Air 08/21/16 11:33 36.7 82 18 129/67 98 08/21/16 11:06 36.8 76 18 99 08/21/16 08:05 36.8 76 18 127/67 99 08/21/16 08:05 Room Air 08/21/16 04:00 Room Air 08/21/16 03:35 36.6 100 16 129/74 93 Room Air 08/21/16 00:03 37.1 108 20 133/73 98 Room Air 08/20/16 23:59 Room Air 08/20/16 20:00 Room Air 08/20/16 19:39 37.4 101 25 106/70 93 Room Air 08/20/16 16:00 94 Room Air 08/20/16 15:31 37.2 94 15 117/69 94 08/20/16 12:45 37.3 97 18 118/52 94 Lab Results: Results Past 24 Hours Test 08/20/16 20:28 08/21/16 07:23 08/21/16 09:04 Range/Units White Blood Count 14.07 13.68 4.8-10.8 K/uL Red Blood Count 4.71 4.77 4.2-5.4 M/uL Hemoglobin 10.3 10.3 12.0-16.0 g/dL Hematocrit 31.7 32.1 37-47 % Mean Corpuscular Volume 67.3 67.3 80-100 fL Mean Corpuscular Hemoglobin 21.9 21.6 25-34 pg Mean Corpuscular Hemoglobin Concent 32.5 32.1 32-36 g/dl RDW Standard Deviation 55.4 55.3 36.4-46.3 fL RDW Coefficient of Variation 23.5 23.4 11.5-14.5 % Platelet Count 171 164 130-400 K/uL Sodium Level 143 136-145 mmol/L Potassium Level 4.0 3.5-5.1 mmol/L Chloride Level 106 98-107 mmol/L Carbon Dioxide Level 30 21-32 mmol/L Anion Gap 7.0 3-11 mmol/L Blood Urea Nitrogen 18 7-18 mg/dl Creatinine 0.64 0.60-1.20 mg/dl Est Creatinine Clear Calc Drug Dose 104.8 ml/min Estimated GFR () 111.6 Estimated GFR (Non- 96.3 BUN/Creatinine Ratio 28.4 10-20 Random Glucose 98 70-99 mg/dl Calcium Level 8.3 8.5-10.1 mg/dl Lab Scanned Report Blood Transfusion Tag [id number]
[2016-08-22] MEDS: POLYETHYLENE (MIRALAX) 17 GM PACK PO SCH ×5 (00:33→23:42)
[2016-08-22] MEDS: OXYCODONE HCL IR 5 MG TAB (IMMEDIATE RELEASE) PO PRN ×4 (02:13→23:41)
[2016-08-22 07:29] VITALS: BP 136/83; PULSE 103; TEMP 37; O2SAT 93
[2016-08-22 07:49] LABS: HEMATOCRIT 32.9 % (37-47); MEAN CORPUSCULAR HGB CONC 32.8 g/dl (32-36); PLATELET COUNT 180 K/uL (130-400); RED BLOOD COUNT 4.91 M/uL (4.2-5.4); WHITE BLOOD COUNT 11.17 K/uL (4.8-10.8)
[2016-08-22 08:21] LABS: BUN/CREATININE RATIO 19.6 (10-20); CALCIUM 8.5 mg/dl (8.5-10.1); CREATININE 0.72 mg/dl (0.60-1.20); POTASSIUM 3.9 mmol/L (3.5-5.1)
[2016-08-22] MEDS: METOPROLOL SUCC 25MG EXT REL TAB PO SCH (09:13)
[2016-08-22] MEDS: DOCUSATE SODIUM/SENNA 50/8.6MG TAB PO SCH ×2 (09:13→19:44)
--- NOTE | 2016-08-22 10:19 | PROGRESS NOTE ---
DATE: 08/22/2016 Today, she is doing quite well, again ambulating about the halls with marked improvement of her back pain. Vital signs stable. T-max 37.0. SARAH drained 115 mL. Hematocrit this a.m. is 32.9. On exam, she has good strength to testing, appears comfortable. ASSESSMENT: Status post thoracolumbar fusion. PLAN: At this time, we will obtain x-rays today, monitor her SARAH output and anticipate home Wednesday.
--- NOTE | 2016-08-22 12:54 | DIAGNOSTIC IMAGING REPORT ---
LUMBAR SPINE 2 VIEWS CLINICAL HISTORY: Postoperative examination. FINDINGS: AP and lateral views of the lumbar spine are correlated with abdominal CT dated 06/09/2006. The skeletal structures are osteopenic. There is no radiographic evidence of fracture or malalignment. Vertebral body height and alignment are maintained throughout the lumbar spine. Extensive postoperative change is noted. There are findings of discectomy at L2-L3 and L3-L4 with laminectomy and posterior fusion from T11 through L4. Interpedicular screws and spinal rods are in place. The orthopedic hardware appears intact. A surgical drain is noted posteriorly. Anterior osteophytes are seen throughout. Mild to moderate degenerative disc space narrowing is seen at L4-L5 and L5-S1. The bony pelvis is intact as visualized. Advanced sclerotic degenerative change is noted in the sacroiliac joints. Surgical clips project over the pelvis. There is mild gaseous distention of the small bowel loops and colon with air-fluid levels noted. This likely represents a postoperative ileus. IMPRESSION: 1. No acute bony abnormality is identified. 2. There are postoperative changes from T11 to L4 spinal fusion. 3. Findings suggest a postoperative ileus. Dictated: 08/22/2016 10:56 AM Transcribed: 08/22/2016 12:54 PM [email or web address] Electronically signed by: Chase García M.D. 08/22/2016 1:01 PM Dictated Date/Time: 08/22/2016 10:56 AM
[2016-08-22 15:03] VITALS: BP 136/81; PULSE 98; TEMP 37; O2SAT 95
[2016-08-22] MEDS: ACETAMINOPHEN 500 MG TAB PO PRN (17:18)
--- NOTE | 2016-08-22 17:28 | Progress Note ---
Internal Med Progress Note Date of Service: Aug 22, 2016. Provider Documentation: SUBJECTIVE: Patient is lying in her bed and is in no apparent distress. Pain has been tolerable today and she has been able to ambulate in the room. Denies any nausea/vomiting. has moved her BM..No other new change or complaint. OBJECTIVE: Vital Signs-as noted below Examination: General Appearance: Alert/Awake and is in no apparent distress. Head: Normocephalic, Atraumatic Eyes: Normal Sclera ENT: Hearing is normal, Eras, Nose & Throat are normal looking. Neck: Supple, Midline trachea, No JVD. Respiratory: B/L Clear to auscultation. Cardiovascular: Tachycardic, Normal S1, S2. Abdomen: Soft, Non-tender, Normal bowel sounds present. Back: s/p lumber spinal decompression surgery , drain present. Lower Extremities: Moderate pulses, No pedal edema present. Neuro: Normal Speech, No neurologic symptoms. Psychiatric: Normal affect Lab data as noted below. ASSESSMENT & PLAN: Lumbar Spine Stenosis:s/p Lumber decompression fusion with instrumentation T12 - L4 by Dr Kebede. POD # 4 -Doing well post-operative -Pain is adequately controlled -Already on bowel regimen -PT/OT /activity as per Ortho recommendation Acute Anemia Due to Acute Blood Loss: Received PRBC transfusion. -Monitoring H/H closely and is stabilizing. History Hypertrophic Cardiomyopathy: Cardiac MRI on 06/12/2016 : severe asymmetric hypertrophy of the basal septum , maximal thickness 19 mm with systolic anterior motion of Mitral valve leaflet. EF 64 %. Patient been followed with [facility] Dr Fuchs -She has been asymptomatic & has no complain of chest pain , SOB , dizzy spell or syncope -She had pre op evaluation done on -found to be in acceptable risk for elective spinal decompression surgery -Recommended Pt to be continued with Beta dwaine with out any interruption -Avoid any event of volume depletion Small PFO noted on ECHO /Cardiac imaging : pt has been on Aspirin , which has been kept on hold 7 days prior to surgery but per cardiology should be restarted as soon as possible post op when her Bleeding risk is acceptable from Orthopedics stand point . History Ovarian Cancer: Stable.s/p Hysterectomy and chemotherapy Code Status: FULL CODE DVT Prophylaxis ;As per Ortho. SCDs. Disposition: Discharge once is clinically stable. Thank you for this consultation. We will follow the patient with you during their hospital stay. You can reach a member of the [facility] Hospitalist Team 01/02 via pager @ . Vital Signs: Date Time Temp Pulse Resp B/P Pulse Ox O2 Delivery O2 Flow Rate FiO2 08/22/16 17:07 Room Air 08/22/16 15:03 37.0 98 16 136/81 95 Room Air 08/22/16 07:35 Room Air 08/22/16 07:29 37.0 103 18 136/83 93 Room Air 08/22/16 00:00 Room Air 08/21/16 23:08 37.1 93 16 131/73 95 Room Air Lab Results: Results Past 24 Hours Test 08/22/16 07:30 Range/Units White Blood Count 11.17 4.8-10.8 K/uL Red Blood Count 4.91 4.2-5.4 M/uL Hemoglobin 10.8 12.0-16.0 g/dL Hematocrit 32.9 37-47 % Mean Corpuscular Volume 67.0 80-100 fL Mean Corpuscular Hemoglobin 22.0 25-34 pg Mean Corpuscular Hemoglobin Concent 32.8 32-36 g/dl RDW Standard Deviation 54.5 36.4-46.3 fL RDW Coefficient of Variation 23.1 11.5-14.5 % Platelet Count 180 130-400 K/uL Sodium Level 139 136-145 mmol/L Potassium Level 3.9 3.5-5.1 mmol/L Chloride Level 101 98-107 mmol/L Carbon Dioxide Level 30 21-32 mmol/L Anion Gap 8.0 3-11 mmol/L Blood Urea Nitrogen 14 7-18 mg/dl Creatinine 0.72 0.60-1.20 mg/dl Est Creatinine Clear Calc Drug Dose 93.2 ml/min Estimated GFR () 104.8 Estimated GFR (Non- 90.4 BUN/Creatinine Ratio 19.6 10-20 Random Glucose 141 70-99 mg/dl Calcium Level 8.5 8.5-10.1 mg/dl
[2016-08-22 23:23] VITALS: BP 123/72; PULSE 96; TEMP 36.5; O2SAT 91
[2016-08-23] MEDS ORDERED: NURSING VERBAL MED ORDER ONE (01:30)
[2016-08-23] MEDS: OXYCODONE HCL IR 5 MG TAB (IMMEDIATE RELEASE) PO PRN ×2 (05:28→13:16)
[2016-08-23 05:37] LABS: HEMATOCRIT 37.2 % (37-47); MEAN CELL VOLUME 67.3 fL (80-100); MEAN CORPUSCULAR HEMOGLOBIN 22.1 pg (25-34); MEAN CORPUSCULAR HGB CONC 32.8 g/dl (32-36); PLATELET COUNT 261 K/uL (130-400); RED BLOOD COUNT 5.53 M/uL (4.2-5.4); WHITE BLOOD COUNT 12.04 K/uL (4.8-10.8)
[2016-08-23 07:27] VITALS: BP 124/78; PULSE 90; TEMP 37.2; O2SAT 94
[2016-08-23] MEDS: DOCUSATE SODIUM/SENNA 50/8.6MG TAB PO SCH ×2 (08:40→20:30)
[2016-08-23] MEDS: METOPROLOL SUCC 25MG EXT REL TAB PO SCH (08:40)
--- NOTE | 2016-08-23 08:57 | PROGRESS NOTE ---
DATE: 08/23/2016 HISTORY OF PRESENT ILLNESS: She is postoperative day 4 multilevel thoracolumbar decompression and fusion. She is doing well. No radicular leg pain. Has complains of lower back pain only. SARAH drain output last shift was 50 mL. She had a movement yesterday. In physical therapy, she is ambulating about 400 feet. An x-ray of the lumbar spine was performed yesterday. This showed evidence of an ileus, but she again has had a bowel movement since. No evidence of hardware failure. PHYSICAL EXAMINATION: VITAL SIGNS: Stable. GENERAL: She is lying in bed. No obvious distress. EXTREMITIES: Neurovascularly intact. ASSESSMENT: Postoperative day 4 thoracolumbar decompression and fusion. PLAN: We will continue with physical therapy. Maintain SARAH drain and dressings. Continue with pain control. I anticipate discharge home tomorrow.
--- NOTE | 2016-08-23 13:57 | Progress Note ---
Internal Med Progress Note Date of Service: Aug 23, 2016. Provider Documentation: SUBJECTIVE: Patient is lying in her bed and is in no apparent distress. Pain has been tolerable today and she has been able to ambulate in the room. Denies any nausea/vomiting. has moved her BM..No other new change or complaint. OBJECTIVE: Vital Signs-as noted below Examination: General Appearance: Alert/Awake and is in no apparent distress. Head: Normocephalic, Atraumatic Eyes: Normal Sclera ENT: Hearing is normal, Eras, Nose & Throat are normal looking. Neck: Supple, Midline trachea, No JVD. Respiratory: B/L Clear to auscultation. Cardiovascular: Tachycardic, Normal S1, S2. Abdomen: Soft, Non-tender, Normal bowel sounds present. Back: s/p lumber spinal decompression surgery , drain present. Lower Extremities: Moderate pulses, No pedal edema present. Neuro: Normal Speech, No neurologic symptoms. Psychiatric: Normal affect Lab data as noted below. ASSESSMENT & PLAN: Lumbar Spine Stenosis:s/p Lumber decompression fusion with instrumentation T12 - L4 by Dr Kebede. POD # 5 -Doing well post-operative -Pain is adequately controlled -Already on bowel regimen -PT/OT /activity as per Ortho recommendation Acute Anemia Due to Acute Blood Loss: Received PRBC transfusion. -Monitoring H/H closely and is stabilizing. History Hypertrophic Cardiomyopathy: Cardiac MRI on 06/12/2016 : severe asymmetric hypertrophy of the basal septum , maximal thickness 19 mm with systolic anterior motion of Mitral valve leaflet. EF 64 %. Patient been followed with [facility] Dr Fuchs -She has been asymptomatic & has no complain of chest pain , SOB , dizzy spell or syncope -She had pre op evaluation done on -found to be in acceptable risk for elective spinal decompression surgery -Recommended Pt to be continued with Beta dwaine with out any interruption -Avoid any event of volume depletion Small PFO noted on ECHO /Cardiac imaging : pt has been on Aspirin , which has been kept on hold 7 days prior to surgery but per cardiology should be restarted as soon as possible post op when her Bleeding risk is acceptable from Orthopedics stand point . History Ovarian Cancer: Stable.s/p Hysterectomy and chemotherapy Code Status: FULL CODE DVT Prophylaxis ;As per Ortho. SCDs. Disposition: Medical conditions are stable. Discharge planning as per Primary team Thank you for this consultation. We will follow the patient with you during their hospital stay. [facility] 01/02 via pager @ [phone]. Vital Signs: Date Time Temp Pulse Resp B/P Pulse Ox O2 Delivery O2 Flow Rate FiO2 08/23/16 07:35 Room Air 08/23/16 07:27 37.2 90 18 124/78 94 Room Air 08/22/16 23:40 Room Air 08/22/16 23:23 36.5 96 16 123/72 91 Room Air 08/22/16 17:07 Room Air 08/22/16 15:03 37.0 98 16 136/81 95 Room Air Lab Results: Results Past 24 Hours Test 08/23/16 05:17 Range/Units White Blood Count 12.04 4.8-10.8 K/uL Red Blood Count 5.53 4.2-5.4 M/uL Hemoglobin 12.2 12.0-16.0 g/dL Hematocrit 37.2 37-47 % Mean Corpuscular Volume 67.3 80-100 fL Mean Corpuscular Hemoglobin 22.1 25-34 pg Mean Corpuscular Hemoglobin Concent 32.8 32-36 g/dl RDW Standard Deviation 54.1 36.4-46.3 fL RDW Coefficient of Variation 22.6 11.5-14.5 % Platelet Count 261 130-400 K/uL
[2016-08-23 15:33] VITALS: BP 103/62; PULSE 106; TEMP 36.9; O2SAT 95
[2016-08-23] MEDS: LORAZEPAM 0.5 MG TAB PO PRN ×2 (15:45→23:57)
[2016-08-23] MEDS: ACETAMINOPHEN 500 MG TAB PO PRN ×2 (15:46→23:57)
[2016-08-23 23:05] VITALS: BP 100/55; PULSE 102; TEMP 36.8; O2SAT 97
[2016-08-24] MEDS: OXYCODONE HCL IR 5 MG TAB (IMMEDIATE RELEASE) PO PRN ×2 (05:42→11:36)
[2016-08-24 06:23] VITALS: BP 103/69; PULSE 97; TEMP 36.7; O2SAT 96
[2016-08-24 07:27] LABS: HEMATOCRIT 35.5 % (37-47); MEAN CELL VOLUME 66.7 fL (80-100); MEAN CORPUSCULAR HEMOGLOBIN 21.6 pg (25-34); MEAN CORPUSCULAR HGB CONC 32.4 g/dl (32-36); MEAN PLATELET VOLUME 10.5 fL (7.4-10.4); PLATELET COUNT 252 K/uL (130-400); RED BLOOD COUNT 5.32 M/uL (4.2-5.4); WHITE BLOOD COUNT 9.46 K/uL (4.8-10.8)
[2016-08-24] MEDS: METOPROLOL SUCC 25MG EXT REL TAB PO SCH (07:38)
[2016-08-24] MEDS: DOCUSATE SODIUM/SENNA 50/8.6MG TAB PO SCH (07:38)
[2016-08-24 08:04] VITALS: BP 120/79; PULSE 97; TEMP 36.8; O2SAT 98
[2016-08-24] MEDS: LORAZEPAM 0.5 MG TAB PO PRN (08:32)
[2016-08-24 09:41] VITALS: O2SAT 98
[2016-08-24 11:12] VITALS: BP 120/79; PULSE 97; TEMP 36.8; O2SAT 98
--- NOTE | 2016-08-24 12:56 | DISCHARGE SUMMARY ---
DATE OF DISCHARGE: 08/24/2016 PRINCIPAL DIAGNOSIS: Lumbar spinal stenosis. HOSPITAL COURSE FOLLOWS: On August 19 the patient underwent thoracolumbar decompression and fusion, tolerated this well and taken to the orthopedic floor postoperatively. Postop day #1, she was up and ambulatory, progressed throughout the weekend. SARAH drain decreased appropriately, pain well controlled. Subsequently discharged on August 24. Discharge orders and instructions can be found on the chart for further review.
--- NOTE | 2016-08-24 14:17 | Progress Note ---
Internal Med Progress Note Date of Service: Aug 24, 2016. Provider Documentation: SUBJECTIVE: Patient is lying in her bed and is in no apparent distress. Pain has been tolerable today and she has been able to ambulate in the room. Denies any nausea/vomiting. Has been moving her bowels. .No other new change or complaint. OBJECTIVE: Vital Signs-as noted below Examination: General Appearance: Alert/Awake and is in no apparent distress. Head: Normocephalic, Atraumatic Eyes: Normal Sclera ENT: Hearing is normal, Eras, Nose & Throat are normal looking. Neck: Supple, Midline trachea, No JVD. Respiratory: B/L Clear to auscultation. Cardiovascular: Tachycardic, Normal S1, S2. Abdomen: Soft, Non-tender, Normal bowel sounds present. Back: s/p lumber spinal decompression surgery , drain present. Lower Extremities: Moderate pulses, No pedal edema present. Neuro: Normal Speech, No neurologic symptoms. Psychiatric: Normal affect Lab data as noted below. ASSESSMENT & PLAN: Lumbar Spine Stenosis:s/p Lumber decompression fusion with instrumentation T12 - L4 by Dr Kebede. POD # 6. -Doing well post-operative -Pain is adequately controlled -Already on bowel regimen -PT/OT /activity as per Ortho recommendation Acute Anemia Due to Acute Blood Loss: Received PRBC transfusion. -Monitoring H/H closely and is stabilizing. History Hypertrophic Cardiomyopathy: Cardiac MRI on 06/12/2016 : severe asymmetric hypertrophy of the basal septum , maximal thickness 19 mm with systolic anterior motion of Mitral valve leaflet. EF 64 %. Patient been followed with [facility] Dr Fuchs -She has been asymptomatic & has no complain of chest pain , SOB , dizzy spell or syncope -She had pre op evaluation done on -found to be in acceptable risk for elective spinal decompression surgery -Recommended Pt to be continued with Beta dwaine with out any interruption -Avoid any event of volume depletion Small PFO noted on ECHO /Cardiac imaging : pt has been on Aspirin , which has been kept on hold 7 days prior to surgery but per cardiology should be restarted as soon as possible post op when her Bleeding risk is acceptable from Orthopedics stand point . History Ovarian Cancer: Stable.s/p Hysterectomy and chemotherapy Code Status: FULL CODE DVT Prophylaxis ;As per Ortho. SCDs. Disposition: Medical conditions are stable. Discharge planning as per Primary team. Cleared for discharge. Thank you for this consultation. We will follow the patient with you during their hospital stay. You can reach a [facility]/02 via pager @ . Vital Signs: Date Time Temp Pulse Resp B/P Pulse Ox O2 Delivery O2 Flow Rate FiO2 08/24/16 11:12 36.8 97 18 98 Room Air Mask 08/24/16 09:41 98 Room Air 08/24/16 08:04 36.8 97 18 120/79 98 Room Air 08/24/16 07:35 Room Air 08/24/16 06:23 36.7 97 18 103/69 96 Room Air 08/23/16 23:50 Room Air 08/23/16 23:05 36.8 102 18 100/55 97 Room Air 08/23/16 15:56 Room Air 08/23/16 15:33 36.9 106 16 103/62 95 Room Air Lab Results: Results Past 24 Hours Test 08/24/16 07:00 Range/Units White Blood Count 9.46 4.8-10.8 K/uL Red Blood Count 5.32 4.2-5.4 M/uL Hemoglobin 11.5 12.0-16.0 g/dL Hematocrit 35.5 37-47 % Mean Corpuscular Volume 66.7 80-100 fL Mean Corpuscular Hemoglobin 21.6 25-34 pg Mean Corpuscular Hemoglobin Concent 32.4 32-36 g/dl RDW Standard Deviation 52.3 36.4-46.3 fL RDW Coefficient of Variation 22.0 11.5-14.5 % Platelet Count 252 130-400 K/uL Mean Platelet Volume 10.5 7.4-10.4 fL
== END 2016-08-24 13:15 | disposition home health service (06) | DRG 460 ==
LOC: ENRESERVDT → ENRESERVTM → C.ACU 07:30 → C.3E 08:30 → EDSTATUS 12:45 → EDBEDREQ 08-20 07:26 → C.2E 08-20 08:39 → C.MSN 08-21 12:13
PROVIDERS: ADMIT Orthopaedic Surgery Orthopaedic Surgery of the Spine; ATTEND Orthopaedic Surgery Orthopaedic Surgery of the Spine
PROC: 0RGA071 Fusion of Thoracolumbar Vertebral Joint with Autologous Tissue Substitute, Posterior Approach, Posterior Column, Open Approach (ICD-10-PCS; principal; 2016-08-19 09:30)
PROC: 0SG10A1 (ICD-10-PCS; principal; 2016-08-19 09:30)
PROC: 0ST20ZZ Resection of Lumbar Vertebral Disc, Open Approach (ICD-10-PCS; principal; 2016-08-19 09:30)
DX: M48.05 Spinal stenosis, thoracolumbar region (principal); D62 Acute posthemorrhagic anemia; M43.19 Spondylolisthesis, multiple sites in spine; M41.23 Other idiopathic scoliosis, cervicothoracic region; Z85.43 Personal history of malignant neoplasm of ovary

== ENCOUNTER 2019-09-07 08:09 | Inpatient (IN) ==
--- NOTE | 2019-08-16 13:48 | PAT Medication Instructions ---
Medication Instructions Date of Service August 16, 2019 Home Medications zcvabsr-qzfyeoqavkygz-hhkhlqxo [Excedrin Migraine] 2 tab PO QAM metoprolol succinate 25 mg PO QAM oxycodone 5 mg PO QID PRN ASK your surgeon for instructions agulsfg-aazaqkeinnkyd-igccjwrk [Excedrin Migraine] 2 tab PO QAM Take morning of surgery With a small sip of water, OTHERWISE NOTHING TO EAT OR DRINK AFTER MIDNIGHT: metoprolol succinate 25 mg PO QAM oxycodone 5 mg PO QID PRN (okay to take up to 4 hours prior to surgery if needed) Take evening before surgery oxycodone 5 mg PO QID PRN (if needed) Other Notes If you have any questions please call us at [phone] or [phone] or [phone] or [phone]
--- NOTE | 2019-08-17 13:29 | Anesthesiology Consultation ---
Date of Service August 17, 2019 Assessment & Plan (1) Encounter for pre-operative examination: - Hx HCOM/ROWAN: Per 2018 ECHO, there is no dynamic LVOT obstruction at rest. Inducible peak instantaneous LVOT gradient is 42 mmhg. mitral valve chordae is redundant with chordal systolic anterior motion. Patient scheduled to have cardiology preop evaluation done 08/22 ([facility] Awaiting cardiology office visit note and if any cardiac testing updated. - Preop CXR: 1.1 cm left apical nodular density. This likely reflects summation artifact however a pulmonary nodule cannot be excluded. A chest CT is recommended. Per surgeon's office, surgeon will order Chest CT to further evaluate. Awaiting Chest CT report. - Anemia: hgb 9.8 on preop labs. Appears to be new (compared to 2017 CBC/hgb in the 12 range at that time). Patient denies any obvious signs of bleeding. Case reviewed with Dr. Guido. He feels that further medical evaluation not needed prior to surgery from anesthesia perspective but advises patient to establish with PCP for their continuity of care to further evaluate anemia after surgery. At anesthesiologist discretion AM DOS if repeat CBC needed. Left message with patient to make them aware of Dr. Guido's recommendations. Chart Review Chart Review: Patient seen in Pre Admission Testing Teaching & Discussion Pre-Anesthesia Teaching/Discussion Notes: Instructed NPO after midnight before surgery,except medications with 15 cc of water. Medication instructions provided according to the PAT guidelines. History Surgery Operation Date: 09/07/19 07:45 Proposed Procedures p L4-S1 Decompression and Fusion, Spinal Cord Monitoring - Domenico Kebede, Height/Weight Height: 5 ft 5 in Weight: 85.1 kg Allergies Allergy/AdvReac Type Severity Reaction Status Date / Time Cipro Allergy Mild FEET Verified 08/19/16 08:04 SWOLLEN AND UNABLE TO WALK ciprofloxacin Allergy Mild FEET Verified 08/17/19 13:56 SWOLLEN AND UNABLE TO WALK Medications Home Medications Medication Instructions Recorded Confirmed Last Taken hqwetre-speuvthdmhyzh-fhhmypsg 2 tab PO QAM 08/10/19 08/10/19 Unknown [Excedrin Migraine] metoprolol succinate 25 mg PO QAM 08/10/19 08/10/19 Unknown oxycodone 5 mg PO QID PRN 08/10/19 08/10/19 Unknown Past Medical History Medical History Degenerative disc disease HOCM (hypertrophic obstructive cardiomyopathy) Per 01/2018 ECHO: there is no dynamic LVOT obstruction at rest. Inducible peak instantaneous LVOT gradient is 42 mmhg. mitral valve chordae is redundant with chordal systolic anterior motion. Ovarian cancer hx endometrioma s/p excision, chemo 2003 Exercise / Class Metabolic Activity II 4-5 Yardwork/Stairs/Walk up hill Past Surgical History Surgical History History of hysterectomy (Chronic) History of lumbar spinal fusion 2016 Hx of appendectomy Hx of cataract surgery R/L Hx of tonsillectomy AGE 6 Past Anesthesia History No Hx of Anesthesia Complications and No Family Hx of Anesthesia Complications History of PONV No Hx of PONV and No Hx of Motion Sickness Social History Smoking Status: Never smoker Do You Dip or Chew Tobacco: No Hx Alcohol Use: Yes alcohol intake frequency: holidays/special occasions only Hx Substance Use: No Review of Systems Patient denies chest pain, shortness of breath, dyspnea on exertion, cough, wheezing, palpitations. Physical Exam Vital Signs VITALS BP 173/95 (recheck manual BP 152/90) P 90 TEMP 98.3 SP02 94%RA RESP 18 PHYSICAL Mildly decreased cervical extension. Full TMJ range of motion. TMD 4 finger breaths Mallampati Score 1 Dentition: partial upper Lungs: clear throughout to auscultation Cardiac: regular rate and rhythm, II/ systolic murmur Spine: normal Carotid arteries: negative bruit Extremities: no edema Testing Laboratory Results 08/17/19 13:44 08/17/19 13:44 PT 10.3 Seconds (9.0-12.0) 08/17/19 13:44 INR 1.0 (0.9-1.1) 08/17/19 13:44 APTT 28.5 Seconds (21.0-31.0) 08/17/19 13:44 Urine Color Yellow 08/17/19 Unknown Urine Appearance Clear (Clear) 08/17/19 Unknown Urine pH 5.0 (4.5-7.5) 08/17/19 Unknown Ur Specific Babb 1.026 (1.000-1.030) 08/17/19 Unknown Urine Protein Negative (Negative) 08/17/19 Unknown Urine Glucose (UA) Negative (Negative) 08/17/19 Unknown Urine Ketones Negative (Negative) 08/17/19 Unknown Urine Nitrite Negative (Negative) 08/17/19 Unknown Ur Leukocyte Esterase Negative (Negative) 08/17/19 Unknown Blood Type O Positive 08/17/19 13:44 Antibody Screen NEGATIVE 08/17/19 13:44 Electrocardiogram Date: 09/21/18 NSR at 86bpm. Possible LAE. Septal infarct (cited on/before 05/20/16 per cardiology). Chest X-Ray Date: 08/17/19 1.1 cm left apical nodular density. This likely reflects summation artifact however a pulmonary nodule cannot be excluded. A chest CT is recommended. No acute cardiopulmonary findings. Echocardiogram Date: 01/25/18 LVEF 60 to 64% there is moderate concentric LVH with severe asymmetric hypertrophy involving the base anterior septum. Maximal thickness of the base anterior septum at end diastole is 1.9 cm. there is no dynamic LVOT obstruction at rest. Inducible peak instantaneous LVOT gradient is 42 mmhg. mitral valve chordae is redundant with chordal systolic anterior motion. Mild MR. Stress Test Date: 09/26/18 Type: nuclear Lexiscan nuclear cardiac stress test negative for ischemia. Gated SPECT images reveals normal myocardial thickening and wall motion. LVEF 63% borderline elevated 3 times daily index, 1.25. 77% MPHR.
--- NOTE | 2019-08-17 14:21 | XRay Report ---
XR chest Pre-admission PA/Lat CLINICAL HISTORY: Preoperative evaluation. COMPARISON STUDY: Chest CT May 31, 2006 and chest radiograph April 29, 2016. FINDINGS: Lung volumes are normal. A 1.1 cm nodular density projects of the left lung apex. There is no pneumothorax or pleural effusion. Cardiac size is normal. Mediastinal contours are normal. There i s no evidence for pulmonary edema. IMPRESSION: 1. 1.1 cm left apical nodular density. This likely reflects summation artifact however a pulmonary no dule cannot be excluded. A chest CT is recommended. 2. No acute cardiopulmonary findings. ACT 112: Negative or not required by law. Electronically signed by: Ciro Ward M.D. 08/17/2019 2:19 PM
[2019-08-17 15:13] LABS: Basophils # (auto) 0.02 K/uL (0-0.2); Basophils % (auto) 0.3 %; Eosinophils # (auto) 0.24 K/uL (0-0.5); Eosinophils % (auto) 3.1 %; Hematocrit (blood only) 33.6 % (37-47); Hemoglobin 9.8 g/dL (12.0-16.0); Immature Granulocytes # (auto) 0.01 K/uL (0.00-0.02); Immature Granulocytes % (auto) 0.1 %; Lymphocytes # (auto) 1.85 K/uL (1.2-3.4); Lymphocytes % (auto) 24.3 %; Mean Corpuscular Hemoglobin 16.1 pg (25-34); Mean Corpuscular Hgb Conc 29.2 g/dL (32-36); Mean Corpuscular Volume 55.3 fL (80-100); Monocytes # (auto) 0.55 K/uL (0.11-0.59); Monocytes % (auto) 7.2 %; Neutrophils # (auto) 4.95 K/uL (1.4-6.5); Platelet Count 263 K/uL (130-400); RDW Coefficient of Variation 19.2 % (11.5-14.5); RDW Standard Deviation 37.3 fL (36.4-46.3); Red Blood Count 6.08 M/uL (4.2-5.4); White Blood Count 7.62 K/uL (4.8-10.8)
[2019-08-17 15:19] LABS: BUN Creatinine Ratio 41.2 (10-20); Calcium 9.5 mg/dl (8.5-10.1); Creatinine Clr Calc Pharmacy 88.7 ml/min; Est GFR (African American) 106.6; Potassium 4.1 mmol/L (3.5-5.1)
[2019-08-17 15:23] LABS: Partial Thromboplastin Ratio 1.1; Partial Thromboplastin Time 28.5 Seconds (21.0-31.0); Prothrombin Time 10.3 Seconds (9.0-12.0)
[2019-08-17 15:26] LABS: Appearance Urine Clear (Clear); Bilirubin Urine Negative (Negative); Blood Urine Negative (Negative); Color Urine Yellow; Glucose Urine UA Negative (Negative); Ketones Urine Negative (Negative); Leukocyte Esterase Urine Negative (Negative); Nitrite Urine Negative (Negative); Protein Urine Negative (Negative); Specific Gravity Urine 1.026 (1.000-1.030); Urobilinogen Urine Negative (Negative)
[2019-08-17 15:38] LABS: Hypochromasia Present; Poikilocytosis Present
[~2019-09-07 08:09] MED LIST changes: +ACETAMINOPHEN 500 MG TAB PO SCH; -ACETTAB19 PO; -CEFAZOLIN 1000MG/55 ML D5W IV SCH; +CEFAZOLIN 2000MG 2,000 MG/15 ML SYR IV SCH; -LACTATED RINGER'S 1000ML 1,000 ML IV SCH; +LR 15ML/HR IV SCH; -METO25TA3 PO
[2019-09-07] MEDS ORDERED: LIDOCAINE HCL 2% 2 ML VIAL/AMP(20MG/ML) INFIL ONE (08:41)
[2019-09-07] MEDS ORDERED: fentaNYL citrate 100 MCG/2 ML VIAL ONE ×2 (08:41→12:30)
[2019-09-07] MEDS ORDERED: PROPOFOL IV EMULSION 10 MG/ML 20 ML VIAL IV ONE (08:41)
[2019-09-07] MEDS ORDERED: GLYCOPYRROLATE 0.2 MG/ML VIAL ONE (08:41)
[2019-09-07] MEDS ORDERED: NEOSTIGMINE METHYLSULFATE 1 MG/ML 10ML VIAL ONE (08:41)
[2019-09-07] MEDS ORDERED: MIDAZOLAM HCL 1 MG/ML 2ML VIAL ONE (08:41)
[2019-09-07] MEDS: GABAPENTIN 600 MG DOSE PO SCH ×2 (08:49→15:43)
[2019-09-07] MEDS: CeleBREX 200 MG CAP PO SCH ×2 (08:49→15:43)
[2019-09-07] MEDS ORDERED: PHENYLEPHRINE 100MCG/ML 5ML SYR ONE ×2 (09:00→10:41)
--- NOTE | 2019-09-07 09:36 | History & Physical Bridge Note ---
Date of Service September 07, 2019 History & Physical Bridge Note I have examined the patient, reviewed the History & Physical and in the interval since the performance of the History & Physical I have noted the following changes of clinical significance: no changes noted
--- NOTE | 2019-09-07 09:37 | History & Physical Report ---
Date of Service September 07, 2019 Assessment & Plan (1) Neurogenic claudication due to lumbar spinal stenosis: L4-S1 decompression fusion Present on Admission?: Yes History of Present Illness Chief Complaint: Back and leg pain Primary Care Provider: NO PCP This is a 64-year-old female who presents with chronic persistent back and leg pain. After failing extensive course of nonoperative care is here for surgical intervention. Allergies Allergy/AdvReac Type Severity Reaction Status Date / Time Cipro Allergy Mild FEET Verified 08/19/16 08:04 SWOLLEN AND UNABLE TO WALK ciprofloxacin Allergy Mild FEET Verified 09/07/19 08:21 SWOLLEN AND UNABLE TO WALK Home Medications Home Medications Medication Instructions Recorded Confirmed Type uxfthow-knafvvymjxelt-zjarioow 2 tab PO QAM 08/10/19 09/07/19 History [Excedrin Migraine] metoprolol succinate 25 mg PO QAM 08/10/19 09/07/19 History oxycodone 5 mg PO QID PRN 08/10/19 09/07/19 History Past Med/Surg History Medical History Degenerative disc disease HOCM (hypertrophic obstructive cardiomyopathy) Per 01/2018 ECHO: there is no dynamic LVOT obstruction at rest. Inducible peak instantaneous LVOT gradient is 42 mmhg. mitral valve chordae is redundant with chordal systolic anterior motion. Ovarian cancer hx endometrioma s/p excision, chemo 2003 Surgical History History of hysterectomy (Chronic) History of lumbar spinal fusion 2016 Hx of appendectomy Hx of cataract surgery R/L Hx of tonsillectomy AGE 6 Social History Preferred Language: Pashto Communication Ability: Effective Front Office Administrator Required: No Beliefs That Will Affect Care: None Current Living Situation: Alone Other Information That Helps Us Care for You: No Feels Safe at Home: Yes Safety Concerns: Feels Safe At This Time Smoking Status: Never smoker Do You Dip or Chew Tobacco: No ; Second Hand Exposure: No ; Tobacco Cessation Education Requested by Patient: No Hx Alcohol Use: Yes Hx Substance Use: No Physical Exam Physical Exam: Patient is alert and oriented neurologically intact. Results & Data Vital Signs (Past 12 Hours) Vital Signs Temp Resp BP Pulse Ox 09/07/19 08:34 37.0 C 18 132/87 96
[2019-09-07] MEDS ORDERED: ePHEDrine sulfate 50 MG/ML AMP IV PRN (09:38)
[2019-09-07] MEDS ORDERED: ATROPINE SULFATE 0.1 MG/ML 10ML SYR IV PRN (09:38)
[2019-09-07] MEDS ORDERED: ONDANSETRON INJ 2 MG/ML 2 ML VIAL IV PRN ×2 (09:38→14:45)
[2019-09-07] MEDS ORDERED: PROMETHAZINE HCL 12.5 MG in SODIUM CHLORIDE 0.9% 50 ML IV PRN ×2 (09:38→14:45)
[2019-09-07] MEDS ORDERED: BUPIVACAINE/EPINEPHRINE 0.5% MPF 1:200,000 10 ML VIAL ONE (10:04)
[2019-09-07] MEDS ORDERED: BACITRACIN INJ 50,000 UNIT VIAL ONE (10:04)
[2019-09-07] MEDS ORDERED: FLOSEAL HEMOSTATIC MATRIX 10ML TOP ONE (11:04)
--- NOTE | 2019-09-07 13:24 | Operative Report ---
Post Operative Report Pre & Post Diagnosis Operation Date: 09/07/19 09:55 Pre-Op Diagnosis: Neurogenic Claudication due to Lumbar Spinal Stenosis Spondylolisthesis L4-5 Post-Op Diagnosis: Same I identified the patient and participated in the time-out.: Yes Procedure Operation Date: 09/07/19 09:55 Actual Procedures #1 removal of posterior instrumentation L4. #2 exploration of fusion L3-4. #3 lumbar decompression with bilateral medial facetectomies and foraminotomies L4-5 and L5-S1. #4 posterior spinal fusion L4-5 L5-S1. #5 placement posterior in strumentation L4-5 L5-S1. #6 interbody fusion L4-5 and L5-S1. #7 placed a peek cage 11 x 26 mm at L4-5 and L5-S1. #8 placement of infuse collagen sponge, master graft in the posterior lateral gutters and ostial amp and interbody space. #9 placement locally harvested morselized autograft in the posterior lateral gutters. Surgeon Domenico Kebede, Risk Management Analyst Margaret Alcala Estimated Blood Loss 600 Findings Consistent with Post-Op Diagnosis Specimens None Indications This is a 64-year-old female well-known to me the presents with admission diagnosis after failing stents course of nonoperative care is here for the above-mentioned procedure. Description of Procedure Patient was met with identified informed consent obtained. Patient was then taken to the operative suite underwent intubation placed in prone position Alli table top Murphy frame. All bony prominences well-padded eyes inspected to ensure no external pressure placed upon but this point the lumbar spine was prepped and draped in a sterile fashion. Sharp dissection with the assistance of Bovie cautery was performed down to and exposing the instrumentation at L3-4 and the lamina and transverse processes of L 4 L5 and sacral ala bilaterally. I then proceeded to remove the pedicle screw and connecting amparo at L4 exploring the fusion mass at L3-4 noting it to be mature. I then performed a complete laminectomy of L5 and L4 from caudal cephalad fashion including bilateral medial facetectomies and foraminotomies addressing severe stenosis. Pedicle screws were then placed in L4-L5 and the S1 levels bilaterally with assistance of fluoroscopy and with globus connectors I placed a new amparo in the screws from L4- L5 and connected to the pre-existing amparo. By way of a transforaminal approach on the left complete discectomy of L5-S1 was performed endplates curetted to subcortical bleeding bone and a 11 x 26 mm peek cage with osteo-bone graft jairo ed in position. Then proceeded L4-[address] of a transforaminal approach and left complete discectomy performed endplates curetted to subcortical bleeding bone and again an 11 x 26 mm peek cage with osteo-bone graft tapped in position. The rods and locked in final position bilaterally. The transverse processes of L4-L5 and the sacral ala burred to subcortical bleeding bone. Infuse collagen sponge master graft local autograft placed in the posterior lateral gutters. 15 round SARAH drain inserted. The incision was then closed with 1 Vicryl in the fascia 2-0 Vicryl subcutaneously and 4 Monocryl for final skin closure. Steri-Strip sterile dressings placed. Patient will continue to PACU stable disc. Please note Margaret Alcala was present at the entire procedure involved the patient positioning complex portions of the surgery and final skin closure. Lastly spinal cord monitoring was utilized that the procedure and no changes noted. I attest to the content of the Intraoperative Record and any orders documented therein. Any exceptions are noted below.
[2019-09-07] MEDS: fentaNYL citrate 100 MCG/2 ML VIAL IV PRN ×4 (13:51→14:06)
--- NOTE | 2019-09-07 14:01 | Fluoroscopy Report ---
LUMBAR SPINE, INTRAOPERATIVE FLUOROSCOPY HISTORY: L4 S1 decompression and fusion. FLUOROSCOPY TIME: 21 cm. FINDINGS: Intraoperative fluoroscopy was provided for the lumbar spine. 2 fluoroscopic spot images we re obtained. Posterior decompression fusion from L4 through S1 with pedicle screws and rods. There is pre-existing lumbar spinal fusion hardware identified. IMPRESSION: Fluoroscopy provided for a L4-S1 posterior decompression and fusion. ACT 112: Negative or not required by law. Electronically signed by: Wilfred Thompson M.D. 09/07/2019 1:59 PM
[2019-09-07] MEDS: HYDROmorphone INJ 2 MG/ML SYR/VIAL IV PRN ×2 (14:11→14:16)
--- NOTE | 2019-09-07 14:33 | Anesthesiology Progress Note ---
Date of Service September 07, 2019 Anesthesia Post Procedure Vital Signs Vital Signs: Temp Pulse Resp BP Pulse Ox 09/07/19 14:20 79 15 107/57 L 96 09/07/19 14:10 80 15 104/59 L 96 09/07/19 14:00 80 12 115/62 100 09/07/19 13:50 84 13 118/68 95 09/07/19 13:44 36.7 C 86 19 131/75 96 09/07/19 08:34 37.0 C 18 132/87 96 Pain Intensity Back: Pain Intensity: 7 Transfer of Care Handoff Completed per policy Notes Mental Status: alert / awake / arousable and participated in evaluation Patient Amnestic to Procedure: Yes Nausea / Vomiting: adequately controlled Pain: adequately controlled Airway Patency, RR, SpO2: stable & adequate BP & HR: stable & adequate Hydration State: stable & adequate Anesthetic Complications: no major complications apparent
[2019-09-07] MEDS ORDERED: LORazepam 0.5 MG TAB PO PRN (14:45)
[2019-09-07] MEDS ORDERED: LORazepam 0.5 MG/1 ML VIAL IV PRN (14:45)
[2019-09-07] MEDS ORDERED: METOCLOPRAMIDE HCL INJ 5 MG/ML 2 ML VIAL IV PRN (14:45)
[2019-09-07] MEDS ORDERED: HYDROmorphone INJ 0.5 MG/0.5 ML SYR IV PRN (14:45)
[2019-09-07] MEDS ORDERED: DO NOT ADMINISTER FLU VACCINE PRN (14:45)
[2019-09-07] MEDS ORDERED: ALUMINUM/MAGNESIUM SUSP 30 ML UDC PO PRN (14:45)
[2019-09-07] MEDS ORDERED: DO NOT ADMINISTER PNEUMOCOCCAL VACCINE PRN (14:45)
[2019-09-07] MEDS ORDERED: bisacodyL 10 MG SUPP PR PRN (14:45)
[2019-09-07] MEDS ORDERED: NALOXONE HCL 0.4 MG/1 ML VIAL/CARP IV PRN (14:45)
[2019-09-07] MEDS ORDERED: TRAMADOL HCL 50 MG TABLET PO PRN (14:45)
[2019-09-07] MEDS ORDERED: HYDROmorphone INJ 1 MG/ML SYRINGE IV PRN (14:45)
[2019-09-07] MEDS ORDERED: ONDANSETRON 4 MG OD TAB PO PRN (14:45)
[2019-09-07] MEDS ORDERED: FAMOTIDINE 20 MG TAB PO PRN (14:45)
[2019-09-07] MEDS ORDERED: MAGNESIUM HYDROXIDE SUSP 30 ML UDC PO PRN (14:45)
[2019-09-07] MEDS ORDERED: ACETAMINOPHEN 1,000 MG/100 ML VIAL IV PRN (14:45)
[2019-09-07] MEDS ORDERED: SOD PHOSPHATE/SOD BIPHOSPHATE ENEMA 132 ML BTL PR PRN (14:45)
[2019-09-07] MEDS: LACTATED RINGER'S 1,000 ML IV SCH (15:48)
[2019-09-07] MEDS: KETOROLAC TROMETHAMINE 15 MG/ML VIAL IV SCH ×2 (16:11→20:38)
[2019-09-07] MEDS: CEFAZOLIN 2000MG 2,000 MG/15 ML SYR IV SCH (18:38)
[2019-09-07] MEDS: OXYCODONE HCL IR 5 MG TAB (IMMEDIATE RELEASE) PO PRN (18:43)
[2019-09-07] MEDS: DOCUSATE SODIUM/SENNA 50/8.6MG TAB PO SCH (20:38)
[2019-09-08] MEDS: KETOROLAC TROMETHAMINE 15 MG/ML VIAL IV SCH ×2 (01:27→10:07)
[2019-09-08] MEDS: CEFAZOLIN 2000MG 2,000 MG/15 ML SYR IV SCH (01:28)
[2019-09-08] MEDS: OXYCODONE HCL IR 5 MG TAB (IMMEDIATE RELEASE) PO PRN ×3 (01:34→20:08)
[2019-09-08] MEDS: LACTATED RINGER'S 1,000 ML IV SCH (01:39)
[2019-09-08 05:05] LABS: Basophils # (auto) 0.01 K/uL (0-0.2); Basophils % (auto) 0.1 %; Eosinophils # (auto) 0.01 K/uL (0-0.5); Eosinophils % (auto) 0.1 %; Hematocrit (blood only) 27.1 % (37-47); Hemoglobin 7.9 g/dL (12.0-16.0); Immature Granulocytes # (auto) 0.03 K/uL (0.00-0.02); Immature Granulocytes % (auto) 0.2 %; Lymphocytes # (auto) 1.38 K/uL (1.2-3.4); Lymphocytes % (auto) 10.9 %; Mean Corpuscular Hgb Conc 29.2 g/dL (32-36); Mean Corpuscular Volume 54.7 fL (80-100); Monocytes # (auto) 0.99 K/uL (0.11-0.59); Monocytes % (auto) 7.8 %; Neutrophils # (auto) 10.25 K/uL (1.4-6.5); Neutrophils % (auto) 80.9 %; Platelet Count 236 K/uL (130-400); RDW Coefficient of Variation 18.8 % (11.5-14.5); RDW Standard Deviation 36.7 fL (36.4-46.3); Red Blood Count 4.95 M/uL (4.2-5.4); White Blood Count 12.67 K/uL (4.8-10.8)
[2019-09-08] MEDS: POLYETHYLENE (MIRALAX) 17 GM PACK PO SCH ×4 (05:11→23:45)
[2019-09-08 05:31] LABS: BUN Creatinine Ratio 23.7 (10-20); Calcium 8.6 mg/dl (8.5-10.1); Creatinine Clr Calc Pharmacy 75.9 ml/min; Est GFR (African American) 91.7; Est GFR (Non-African American) 79.1; Potassium 4.1 mmol/L (3.5-5.1)
[2019-09-08 05:42] LABS: Hypochromasia Present; Macrocytosis Present; Ovalocytes 1+
[2019-09-08] MEDS ORDERED: SODIUM CHLORIDE 0.9% 250 ML IV PRN (07:35)
[2019-09-08] MEDS: ACETAMINOPHEN 500 MG TAB PO PRN ×2 (08:14→17:20)
[2019-09-08] MEDS: METOPROLOL SUCC 25MG EXT REL TAB PO SCH (08:14)
[2019-09-08] MEDS ORDERED: NON-FORMULARY MEDICATION (Aspirin-Acetaminophen-Caffeine [Excedrin Migraine] 2 TAB) PO SCH (09:00)
--- NOTE | 2019-09-08 09:02 | Anesthesiology Progress Note ---
Date of Service September 08, 2019 Anesthesia Post Procedure Vital Signs Vital Signs: Temp Pulse Pulse Pulse Pulse Resp BP 09/08/19 08:40 36.6 C 86 16 128/73 09/08/19 08:25 36.6 C 83 16 115/67 09/08/19 08:09 36.2 C L 83 16 121/70 09/08/19 07:45 36.4 C L 80 16 09/08/19 07:07 36.5 C 88 16 09/08/19 03:58 36.6 C 86 14 09/07/19 23:38 36.5 C 68 12 09/07/19 20:00 36.5 C 72 16 09/07/19 17:45 36.4 C L 71 16 09/07/19 16:39 36.6 C 71 16 09/07/19 15:47 36.6 C 75 16 09/07/19 15:14 36.4 C L 83 16 09/07/19 14:40 36.9 C 74 16 09/07/19 14:30 37.1 C 75 12 09/07/19 14:20 79 15 09/07/19 14:10 80 15 09/07/19 14:00 80 12 09/07/19 13:50 84 13 09/07/19 13:44 36.7 C 86 19 BP Pulse Ox 09/08/19 08:40 99 09/08/19 08:25 95 09/08/19 08:09 97 09/08/19 07:45 110/68 97 09/08/19 07:07 114/68 97 09/08/19 03:58 112/64 97 09/07/19 23:38 128/71 97 09/07/19 20:00 106/65 97 09/07/19 17:45 100/63 99 09/07/19 16:39 116/69 99 09/07/19 15:47 97/59 L 97 09/07/19 15:14 95/55 L 97 09/07/19 14:40 110/62 98 09/07/19 14:30 109/60 95 09/07/19 14:20 107/57 L 96 09/07/19 14:10 104/59 L 96 09/07/19 14:00 115/62 100 09/07/19 13:50 118/68 95 09/07/19 13:44 131/75 96 Pain Intensity Back: Pain Intensity: 4 Notes Mental Status: alert / awake / arousable and participated in evaluation Patient Amnestic to Procedure: Yes Nausea / Vomiting: adequately controlled Pain: adequately controlled Airway Patency, RR, SpO2: stable & adequate BP & HR: stable & adequate Hydration State: stable & adequate Anesthetic Complications: no major complications apparent and Pt Satisfied with anesthetic care
--- NOTE | 2019-09-08 10:28 | Orthopedic Progress Note ---
Date of Service September 08, 2019 Assessment & Plan (1) Acute blood loss as cause of postoperative anemia: This time we will transfuse 2 units of packed red blood cells. Will initiate physical therapy later today. Monitor SARAH output. Hopefully discharge home Wednesday or Wednesday. Present on Admission?: Yes Admission and Anticipated Discharge Date Admission Date: September 07, 2019 Subjective Back pain controlled leg pain improved Physical Exam Physical Exam: Patient is good strength testing appears comfortable. Results & Data ([facility]) Vital Signs (Past 12 Hours) Vital Signs Temp Pulse Pulse Pulse Resp BP BP 09/08/19 10:10 36.6 C 87 16 130/56 L 09/08/19 09:10 36.7 C 83 16 112/68 09/08/19 08:40 36.6 C 86 16 128/73 09/08/19 08:25 36.6 C 83 16 115/67 09/08/19 08:09 36.2 C L 83 16 121/70 09/08/19 07:45 36.4 C L 80 16 110/68 09/08/19 07:07 36.5 C 88 16 114/68 09/08/19 03:58 36.6 C 86 14 112/64 09/07/19 23:38 36.5 C 68 12 128/71 Pulse Ox 09/08/19 10:10 98 09/08/19 09:10 97 09/08/19 08:40 99 09/08/19 08:25 95 09/08/19 08:09 97 09/08/19 07:45 97 09/08/19 07:07 97 09/08/19 03:58 97 09/07/19 23:38 97
[2019-09-08] MEDS: DOCUSATE SODIUM/SENNA 50/8.6MG TAB PO SCH (20:14)
[2019-09-09] MEDS: OXYCODONE HCL IR 5 MG TAB (IMMEDIATE RELEASE) PO PRN ×4 (00:24→20:06)
[2019-09-09] MEDS: POLYETHYLENE (MIRALAX) 17 GM PACK PO SCH ×3 (05:05→17:45)
[2019-09-09] MEDS: ACETAMINOPHEN 500 MG TAB PO PRN ×2 (06:33→16:42)
[2019-09-09] MEDS: METOPROLOL SUCC 25MG EXT REL TAB PO SCH (07:48)
--- NOTE | 2019-09-09 08:52 | Orthopedic Progress Note ---
Date of Service September 09, 2019 Assessment & Plan (1) Neurogenic claudication due to lumbar spinal stenosis: At this point will continue with GI DVT prophylaxis. Continue with mobilization efforts. No hemoglobin and hematocrit was ordered. We will maintain her SARAH drain at this point. We will see how she is doing tomorrow and likely get her home on Wednesday. Admission and Anticipated Discharge Date Admission Date: September 07, 2019 Subjective Patient was seen bedside in room 308. She is 3 days status post lumbar decompression fusion from L4-S1. Yesterday she was transfused 2 units packed red blood cells for low hemoglobin. She has had some pain control issues throughout the night and having hard time finding a comfortable position. She had about 2 hours of sleep consecutively. She is not having pain radiating down her leg in a constant fashion. She denies any shortness of breath any increased pain numbness or tingling. Physical Exam Physical Exam: On exam she is alert and oriented. Her dressing is clean dry and intact her SARAH drains in place and is holding suction. Her abdomen soft nontender her calves are supple nontender. Strength and sensation grossly intact. Results & Data ([facility]) Vital Signs (Past 12 Hours) Vital Signs Temp Pulse Resp BP Pulse Ox 09/09/19 07:18 36.4 C L 73 16 152/82 H 98 09/08/19 23:31 36.3 C L 70 16 127/77 94
[2019-09-09 09:12] LABS: Hematocrit (blood only) 33.1 % (37-47); Hemoglobin 10.1 g/dL (12.0-16.0)
[2019-09-09] MEDS: DOCUSATE SODIUM/SENNA 50/8.6MG TAB PO SCH (20:08)
[2019-09-10] MEDS: OXYCODONE HCL IR 5 MG TAB (IMMEDIATE RELEASE) PO PRN ×5 (00:09→20:44)
[2019-09-10] MEDS: ACETAMINOPHEN 500 MG TAB PO PRN ×3 (05:20→21:39)
[2019-09-10] MEDS: METOPROLOL SUCC 25MG EXT REL TAB PO SCH (08:03)
--- NOTE | 2019-09-10 08:28 | Orthopedic Progress Note ---
Date of Service September 10, 2019 Assessment & Plan (1) Neurogenic claudication due to lumbar spinal stenosis: We will continue with mobilization through physical therapy. We will continue with GI DVT prophylaxis and pain control measures. Hopefully we will be able to get her home tomorrow. Admission and Anticipated Discharge Date Admission Date: September 07, 2019 Subjective Patient seen bedside in room 308. She is postoperative day #3. Overall she has seen some improvements but still has moderate amount of lower back pain. The legs do seem to be improving. She denies any dizziness when she sits up. She denies any other numbness, tingling, paresthesias. Physical Exam Physical Exam: On exam she is alert and oriented. Her dressing is clean dry and intact. Her calves are supple nontender her abdomen soft and nontender. She is had 50 cc of drainage on the shift 60 on the last. Her hemoglobin is 10.1 and hematocrit is 33.1. Results & Data ([facility]) Vital Signs (Past 12 Hours) Vital Signs Temp Pulse Pulse Resp BP Pulse Ox 09/10/19 07:21 37.0 C 89 16 134/83 92 09/10/19 00:00 36.6 C 83 16 135/84 96
[2019-09-10] MEDS: DOCUSATE SODIUM/SENNA 50/8.6MG TAB PO SCH ×2 (20:01→20:03)
[2019-09-11] MEDS: OXYCODONE HCL IR 5 MG TAB (IMMEDIATE RELEASE) PO PRN ×3 (02:04→12:10)
[2019-09-11] MEDS: ACETAMINOPHEN 500 MG TAB PO PRN (07:41)
[2019-09-11] MEDS: METOPROLOL SUCC 25MG EXT REL TAB PO SCH (07:44)
--- NOTE | 2019-09-11 14:54 | Discharge Summary ---
Date of Service September 11, 2019 Admission HPI Per Admitting Provider This is a 64-year-old female who presents with chronic persistent back and leg pain. After failing extensive course of nonoperative care is here for surgical intervention. Principal Diagnosis Lumbar spinal stenosis with neurogenic claudication Discharge Data Allergies Allergy/AdvReac Type Severity Reaction Status Date / Time Cipro Allergy Mild FEET Verified 08/19/16 08:04 SWOLLEN AND UNABLE TO WALK ciprofloxacin Allergy Mild FEET Verified 09/07/19 08:21 SWOLLEN AND UNABLE TO WALK Consultations 09/07/19 14:45 Consult Case Management - Discharge Planning Routine Procedures Performed Operation Date: 09/07/19 09:55 Actual Procedures p L4-S1 Decompression and Fusion, Interbody Fusion L4-L5, L5-S1, Application of Bone Morphogenetic Protein, Spinal Cord Monitoring(Not Applicable) - DO kota Pinto Removal of Posterior Instrumentation L4 - Domenico Kebede DO Ordered Studies 09/07/19 09:55 FL fluoroscopy <1hr Routine FL lumbar spine 2-3V Routine Hospital Course (1) Neurogenic claudication due to lumbar spinal stenosis: Patient underwent lumbar decompression fusion tolerated this well was taken the orthopedic floor postoperative. Postop day 1 leg symptoms were improved and she began physical therapy she progressed that the next few days tolerating physical therapy relatively well SARAH drain decreasing appropriately. Subsequently discharged home. Discharge orders and instructions can be found the chart for further review. Total Time Total Time Spent Total Time Spent (In Minutes): 20 minutes Discharge Plan Discharge Items Patient Disposition: Home - Self-Care Reason For Visit: LUMBAR SPINAL STENOSIS WO NEUROGENIC CLAUDICATION Discharge Diagnosis: Lumbar spinal stenosis with neurogenic claudication Activity: As commented below Non-emergency contact: Primary Care Provider Call non-emergency contact if: you have any medication questions Follow-up/Referrals: PCP,NO [Primary Care Provider] - Diet: Regular Addtl Attending Provider Instructions: ACTIVITY RECOMMENDATIONS: SELF CARE INSTRUCTIONS AFTER THORACIC/LUMBAR FUSIONS 1. You may walk to your tolerance. It is good exercise for your legs and back. Expect some back and intermittent leg aches and pains. 2. You may perform "counter-top" level activities (make a sandwich, ji with a project, etc.). 3. No bending or lifting of more than 10 pounds or back twisting of any nature (roll like a log when turning in bed). 4. You may ride in a car for 20-30 minutes at a time. No driving until after your first visit with your doctor. 5. Frequent changes of position and restricting sitting to 30 minutes at a time will help limit the amount of back spasms and stiffness you may experience. 6. You may discontinue the use of ambulatory aids (cane, crutches, etc.) once your strength and confidence allow. 7. You may service learning coordinator the shower and let water strike your incision when you arrive home at least once daily. Do not take a tub bath, sit in a hot tub or go into a swimming pool until after your first recheck in the office. SPECIAL CARE INSTRUCTIONS: VERY IMPORTANT TO READ AND REVIEW A. Your surgical incision has been closed with a cosmetic suture under the skin that will dissolve in about 6 weeks. In 14 days, you can use a pair of clean scissors and cut the suture that is left outside of the skin at the ends of your incision. 1. The small skin tapes can be removed 7 days after surgery if they have not fallen off by that point. 2. You may keep the wound open to air as much as possible to promote healing after post-op day number 5 unless told otherwise by your doctor. 3. If you think the wound looks like it is becoming infected (redness or worsening drainage) and/or you are experiencing fever, chill or worsening back pain and muscle spasms, contact the office so that we may evaluate you as soon as possible. B. Complications are uncommon, but please contact us if you have any signs or symptoms of: 1. wound infection (fever higher than 102.5 degrees F, redness, separation of wound, drainage, or increasing pain from the incision) 2. blood clots in legs (pain, swelling, redness and warmth in legs) 3. urinary tract infection (fever higher than 102.5 degrees F, burning upon urination or increased frequency of urination) 4. nerve problems (inability to walk on your toes or heels, numbness, loss of bowel or bladder control) 5. any other symptoms that concern you C. Please call the office at if you have any concerns or questions about your operation or recovery. D. No smoking! Smoking drastically decreases the chance of a solid fusion. E. Do not take any anti-inflammatory medications (Indocin, Advil, Motrin, Aspirin, Naprosyn, etc.) as these may inhibit the chance of a solid fusion. Tylenol is okay to take for pain. MANAGING PAIN AFTER SPINAL SURGERY 1. Narcotic medication is intended for short-term use and will be provided for surgical pain. Surgical pain usually lasts for a period of 4-6 weeks. Narcotic medication includes Percocet, Vicodin, Darvocet, Tylenol #3 or Lortab. 2. Longer-term pain is more appropriately treated with non-narcotic medication such as Tylenol ES. 3. Muscle spasm is not appropriately treated with narcotics. Muscle relaxers such as Soma, Flexeril or Skelaxin can be used along with Tylenol ES. 4. Remember that we all live with some "aches and pains". This is not unusual or uncommon after an injury or as we get older. a. Back pain is expected and may include muscle spasms for 4 to 6 weeks after surgery. The pain should gradually improve. If the pain worsens for no apparent reason, please contact the office. b. Intermittent leg pain may also be experienced and should not be concerned about unless it worsens for no apparent reason. If so, please contact the office. 5. We will provide appropriate medication within the normal guidelines of their prescribed use. We will also be very cautious and aware of potential abuse and extended duration of patients' medication needs. a. Pain medications are for your comfort and to assist with sleep and rest so that the tissue can heal. They are not provided in order to return to normal activity and should not be used through the day. To do so or worsening pain at night can result from ongoing tissue damage and development of tolerance to the prescribed medicine. 6. Please allow 2-3 days to process refills. Prescriptions will not be mailed but must be picked up at the office. FOLLOW UP VISIT: Keep your scheduled follow-up appointment. Any questions, please call the office at . Pending Studies at Discharge: No Stand-Alone Forms: [facility], Opioid Pain Management, Smoking Cessation Medications and DC Order Prescriptions: New tramadol 50 mg tablet 50 mg PO Q6H PRN (Reason: pain, moderate) Qty: 30 RF: 0 oxycodone 5 mg tablet 5 mg PO Q6H PRN (Reason: pain, severe) Qty: 30 RF: 0 Continued metoprolol succinate 25 mg Tablet Extended Release 24 Hr 25 mg PO QAM RF: 0 Excedrin Migraine 250-250-65 mg Tablet 2 tab PO QAM RF: 0 Discontinued oxycodone 5 mg Capsule 5 mg PO QID PRN (Reason: Pain) RF: 0 Discharge Orders: Discharge Order (Routine); Ordered 09/11/19 Ordered By: Domenico Amos/Other Patient Handouts: Surgery Prevent DVT After, ED Stockings Tim Admission Data Admit Date/Time: 09/07/19 13:42 Attending Provider: Domenico Kebede Admit Provider: Domenico Kebede Primary Care Provider: PCP,NO Other Providers: Sy Fuchs Other Interventions: Discharge Summary Assessment (RN) Last Done: 09/11/19 10:46 DC Date/Time DO NOT enter until pt leaves facility: 09/11/19 14:13
== END 2019-09-11 14:13 | disposition home or self-care (01) | DRG 454 ==
LOC: ASU 08:09 → 3E 13:42

== ENCOUNTER 2023-09-13 09:16 | Observation (INO) ==
--- NOTE | 2023-08-13 11:17 | PAT Medication Instructions ---
Medication Instructions Date of Service August 13, 2023 Home Medications Medication Instructions Recorded tramadol 50 mg tablet 50 mg PO Q6H PRN pain, moderate 09/08/19 #30 tabs Continue as directed metoprolol succinate 25 mg tablet,extended release 24 hr 25 mg PO BID tramadol 50 mg tablet 50 mg PO Q6H PRN pain, moderate acetaminophen 500 mg tablet 500 mg PO Q6H PRN diphenhydramine HCl 25 mg capsule (Benadryl) 25 mg PO Q6H PRN seasonal allergies loratadine 10 mg tablet 10 mg PO QAM PRN DO NOT take the morning of surgery diphenhydramine HCl 25 mg capsule (Benadryl) 25 mg PO Q6H PRN seasonal allergies loratadine 10 mg tablet 10 mg PO QAM PRN Take morning of surgery With a small sip of water, OTHERWISE NOTHING TO EAT OR DRINK AFTER MIDNIGHT: metoprolol succinate 25 mg tablet,extended release 24 hr 25 mg PO BID tramadol 50 mg tablet 50 mg PO Q6H PRN pain, moderate (if needed) acetaminophen 500 mg tablet 500 mg PO Q6H PRN (if needed) Take evening before surgery metoprolol succinate 25 mg tablet,extended release 24 hr 25 mg PO BID tramadol 50 mg tablet 50 mg PO Q6H PRN pain, moderate (if needed) acetaminophen 500 mg tablet 500 mg PO Q6H PRN (if needed) diphenhydramine HCl 25 mg capsule (Benadryl) 25 mg PO Q6H PRN seasonal allergies (if needed) Other Notes If you have any questions please call us at [phone] or [phone] or [phone] or [phone]
--- NOTE | 2023-08-19 13:58 | Anesthesiology Consultation ---
Date of Service August 19, 2023 Assessment & Plan (1) Encounter for pre-operative examination: - Infectious disease screening: Per assessment on 08/19/23: No known infectious disease contacts or current infectious disease symptoms. No noted recent Covid positive test result. - Outpatient joint assessment: Pt currently scheduled for inpatient pathway. If surgeon requests review for outpatient joint pathway, patient is not recommended candidate for outpatient joint program from anesthesia standpoint. - PCP visit 05/21/23: "Follows with cardiology for her hypertrophic cardiomyopathy. Of late, she's been trying to find an orthopedic surgeon who agrees to do a partial knee replacement on her left knee. All of the surgeons are recommending a total knee replacement, but she does not want that procedure. She tells me she has an appointment for another opinion next month., Hypertrophic cardiomyopathy.. Plan: continue beta dwaine; had cardiac clearance for knee surgery should she have it" - Cardiology visit (04/29/23): "This is a 68-year-old female who was 1st diagnosed with a hypertrophic cardiomyopathy in 2016. She had an event after taking some antibiotics which eventually led her to have a cardiac MRI.. The patient recently returned and would like to have a total knee replacement. She has not had a follow-up echocardiogram since 2018 and one was recently obtained. The report is on the chart. I reviewed the study myself and she has hypertrophic cardiomyopathy which is asymmetric. It would appear to me that she has ROWAN and at least a resting outflow track gradient. She is not very mobile due to her previous orthopedic problems but she expresses no unusual shortness of breath. No dizziness or lightheadedness. And no activity related chest pain.. The patient is at least a moderate risk for total knee replacement. She is however, in a great deal of pain and having a great deal of difficulty ambulating between the pain in her knee as well as her low back where she was previously operated on. I think the patient should proceed to surgery. Consideration should be given to judicious use of IV fluids and blood loss. Once the patient recovers from her surgery, I think her hypertrophic cardiomyopathy should be worked up further with consideration of genetic te sting. She has no significant family history of sudden and the myocardial septal thickness is 1.9 so I do not believe a primary prevention ICD is indicated. I currently do not believe that she is a candidate for Camzyos but maybe sometime in the future. She is currently clinically stable and optimally medically managed. We will see her once her surgeries been completed." - Cardiology note (05/05/23): "I spoke with Dr. Gross at [facility] [[facility] cleaning technician that specializing in HCOM]. He reviewed the patient's echocardiograms and agrees with my assessment. Patient can proceed to surgery but he did recommend that we increase the metoprolol XL from 25 mg daily to 50 mg daily. I think it would be best to have the patient take metoprolol XL 25 mg twice a day for total of 50 if she calls in." > Patient has since increased Metoprolol dose to 25 mg BID. - Cardiology made aware that since the last visit in their office 04/2023 in which they provided risk assessment, Left Unicompartment Knee Arthroplasty has now been officially scheduled for 09/13/23 > Received response from cardiology 08/24/23, "Please see attached office visit note [05/05/23]. No further cardiac evaluation or testing required prior to surgery" - HOCM/ROWAN. Reviewed upcoming surgery with Dr. Page. Ultimate decision regarding anesthesia type at anesthesiologist discretion DOS.* Chart Review Chart Review: Acceptable Risk for Surgery (pending evaluation DOS) and Patient seen in Pre Admission Testing Teaching & Discussion Pre-Anesthesia Teaching/Discussion Notes: Instructed NPO after midnight before surgery,except medications with 15 cc of water. Medication instructions provided according to the PAT guidelines. History Surgery Operation Date: 09/13/23 12:20 Proposed Procedures p Left Unicompartment Knee Arthroplasty - Gerardo Andres, Height/Weight Height: 5 ft 5.5 in Weight: 90.4 kg Allergies Allergy/AdvReac Type Severity Reaction Status Date / Time ciprofloxacin Allergy Mild Swollen Verified 08/13/23 16:25 feet (unable to walk) NSAIDS (Non-Steroidal AdvReac Increased Verified 08/19/23 14:05 Anti-Inflamma bleeding Medications Home Medications Medication Instructions Recorded Confirmed Last Taken metoprolol succinate 25 mg 25 mg PO BID 08/10/19 08/12/23 09/07/19 06:30 tablet,extended release 24 hr tramadol 50 mg tablet 50 mg PO Q6H PRN pain, moderate 09/08/19 08/12/23 Unknown #30 tabs acetaminophen 500 mg tablet 500 mg PO Q6H PRN prn 08/12/23 08/12/23 Unknown diphenhydramine HCl 25 mg capsule 25 mg PO Q6H PRN seasonal allergies 08/12/23 08/12/23 Unknown (Benadryl) loratadine 10 mg tablet 10 mg PO QAM PRN prn 08/12/23 08/12/23 Unknown Past Medical History Medical History Degenerative disc disease History of blood transfusion Post-op HOCM (hypertrophic obstructive cardiomyopathy) Echo 04/2023 Ovarian cancer hx endometrioma s/p excision, chemo 2003 Systolic anterior movement of mitral valve Exercise / Class Metabolic Activity III < 4 Walking/Shop/Light housework Past Surgical History Surgical History History of hysterectomy History of lumbar spinal fusion 2016 L4-S1 decompression/fusion (09/07/2019): Grade view 1, [place] #2, ETT 7.0 at [facility] (postop feet swelling 2 weeks after surgery) Hx of cataract surgery R/L Hx of tonsillectomy Age 6 Past Anesthesia History No Hx of Anesthesia Complications and No Family Hx of Anesthesia Complications History of PONV No Hx of PONV and No Hx of Motion Sickness Social History Smoking Status: Never smoker Do You Dip or Chew Tobacco: No Hx Alcohol Use: Yes alcohol intake frequency: holidays/special occasions only (Rare) Hx Substance Use: No substance use type: does not use Review of Systems Patient denies chest pain, shortness of breath, fever, chills, cough, wheezing, palpitations. Physical Exam Vital Signs VITALS BP 135/75 P 72 TEMP 97.9 SP02 95%RA RESP 18 PHYSICAL Decreased cervical extension range of motion. Full TMJ range of motion. TMD 3.5 finger breaths Mallampati Score 3 Dentition: upper partial Lungs: clear throughout to auscultation Cardiac: regular rate and rhythm, III/ systolic murmur Spine: normal Carotid arteries: negative bruit Extremities: no LE edema Lab Results Anesthesia Preop Results Results Anesthesia Widget: WBC 5.84 K/ul (4.8-10.8) 08/19/23 Hgb 12.6 g/dl (12.0-16.0) 08/19/23 Hct 42.1 % (37.0-47.0) 08/19/23 Plt 191 K/uL (130-400) 08/19/23 Na 139 mmol/L (136-145) 08/19/23 K 4.4 mmol/L (3.5-5.1) 08/19/23 Cl 104 mmol/L (98-107) 08/19/23 CO2 29 mmol/L (21-32) 08/19/23 BUN 21 mg/dl (6-23) 08/19/23 Creat 0.70 mg/dl (0.6-1.2) 08/19/23 Glucose Level 90 mg/dl (70-99(Fasting)) 08/19/23 PT 10.9 Seconds (9.0-12.0) 08/19/23 PTT 33 Seconds (21-31) H 08/19/23 INR 1.0 (0.9-1.1) 08/19/23 Blood Type O Positive 08/19/23 Antibody Screen NEGATIVE 08/19/23 Testing Electrocardiogram Date: 08/19/23 NSR at 70bpm. "Normal ECG" Chest X-Ray Date: 08/19/23 FINDINGS: PA and lateral chest radiographs are compared to study dated 08/17/2019. Correlation is made with chest CT dated 08/24/2019. The cardiomediastinal silhouette is unremarkable. The lungs and pleural spaces are clear. There is no pneumothorax. The bony thorax appears intact. Fusion hardware is seen at the thoracolumbar junction. IMPRESSION: No active disease in the chest. Echocardiogram Date: 04/14/23 LVEF 65-69%. LV cavity size is small. Moderate concentric LVH with severe asymmetric hypertrophy involving the basal and mid anterior septum. The maximal thickness of the base and mid anterior septum at end diastole is 1.9 cm. Ventricular cavity is narrowed below the left ventricular outflow tract. There is a late peaking outflow tract gradient of 15 mm resting gradient. Gradient increases with Valsalva but obstruction location appears to be at mid renea tricular level. LV wall motion is normal. Mild to moderate MR. Mitral valve chordae are redundant with chordal systolic anterior motion (ROWAN). Grade 1 diastolic dysfunction. Mildly calcified aortic valve. Stress Test Date: 09/26/18 Type: nuclear Lexiscan nuclear cardiac stress test negative for ischemia. Gated SPECT images reveal normal myocardial thickening and wall motion. LVEF 63%. Borderline elevated TID index, 1.25.
--- NOTE | 2023-09-08 16:30 | History & Physical Report ---
Date of Service September 08, 2023 Assessment & Plan (1) Osteoarthritis of left knee: We will proceed with a left partial knee replacement surgery. Postoperatively she will be started on aspirin for DVT prophylaxis and kept overnight in the hospital for postop medical management. She plans to use energy physical therapy upon discharge. History of Present Illness Chief Complaint: Osteoarthritis of the left knee. Primary Care Provider: NO PCP Kayla is a pleasant 68-year-old female who has been dealing with chronic increasing left knee pain. She has been treated by other providers. She has had cortisone injections and viscosupplementation. X-rays have shown progressing medial compartmental arthritis of the left knee. She had an MRI of the knee, which showed mostly medial compartmental arthritis, but also some arthritic changes in the lateral compartment of the patellofemoral joint. She has complex medial meniscus tears. She has a history of multiple lumbar surgeries. She does not want a knee replacement. She was very much hoping for a partial knee replacement. She is well read on the subject. After failing conservative treatment, she has elected proceed with a left partial knee replacement surgery. Allergies Allergy/AdvReac Type Severity Reaction Status Date / Time ciprofloxacin Allergy Mild Swollen Verified 08/13/23 16:25 feet (unable to walk) NSAIDS (Non-Steroidal AdvReac Increased Verified 08/19/23 14:05 Anti-Inflamma bleeding Home Medications Medication Instructions Recorded Confirmed Type metoprolol succinate 25 mg 25 mg PO BID 08/10/19 08/12/23 History tablet,extended release 24 hr tramadol 50 mg tablet 50 mg PO Q6H PRN pain, moderate 09/08/19 08/12/23 Rx #30 tabs acetaminophen 500 mg tablet 500 mg PO Q6H PRN prn 08/12/23 08/12/23 History diphenhydramine HCl 25 mg capsule 25 mg PO Q6H PRN seasonal allergies 08/12/23 08/12/23 History (Benadryl) loratadine 10 mg tablet 10 mg PO QAM PRN prn 08/12/23 08/12/23 History Past Med/Surg History Medical History History of blood transfusion Post-op Systolic anterior movement of mitral valve Degenerative disc disease Ovarian cancer hx endometrioma s/p excision, chemo 2003 HOCM (hypertrophic obstructive cardiomyopathy) Echo 04/2023 Surgical History Hx of cataract surgery R/L Hx of tonsillectomy Age 6 History of lumbar spinal fusion 2017 L4-S1 decompression/fusion (09/07/2019): Grade view 1, [place] #2, ETT 7.0 at [facility] (postop feet swelling 2 weeks after surgery) History of hysterectomy Social History Smoking Status: Never smoker Second Hand Exposure: No; Do You Dip or Chew Tobacco: No; Tobacco Cessation Education Requested by Patient: No Hx Alcohol Use: Yes Hx Substance Use: No Preferred Language: Kyrgyz Communication Ability: Effective Economics Lecturer Required: No Beliefs That Will Affect Care: None Current Living Situation: Alone Other Information That Helps Us Care for You: No Feels Safe at Home: Yes Safety Concerns: Feels Safe At This Time Assistive Devices: Cane and Denture - Upper Review of Systems All systems reviewed & are unremarkable except as noted in HPI & below. Physical Exam On physical examination of the left knee, she has slight varus deformity. She has tenderness palpation of the distal medial femoral condyle and over the medial joint line.. Constitutional WD/WN, vitals as above Eyes PERRL, conjunctivae normal, anicteric sclerae ENMT external ear and nose normal, oropharynx normal Neck trachea midline, no thyromegaly Respiratory normal respiratory effort Cardiovascular RRR, no murmur, no edema Gastrointestinal (Abdomen) normal bowel sounds, soft, nontender, no hepatosplenomegaly Psychiatric A+Ox3, euthymic affect Results & Data Results & Data Laboratory Results . Diagnostic Findings X-rays of the left knee show advanced medial compartment arthritis with joint space narrowing, osteophyte formation, and [id number] tubulation.. PG Care Time/CCT Total # of Minutes Spent Total Time Spent with Patient: Total time spent is greater than 50% in coordination of care (as documented) at patient's floor/unit and/or counseling patient: Coding Level of Care Code None Diagnoses Osteoarthritis of left knee M17.12
[~2023-09-13 09:16] MED LIST changes: -ACETAMINOPHEN 500 MG TAB PO SCH; +BUPIVACAINE 0.25% PF 30 ML VIAL ONE; +BUPIVACAINE 0.5 % 5 MG/1 ML PF 10ML VIAL ONE; -CEFAZOLIN 2000MG 2,000 MG/15 ML SYR IV SCH; -LR 15ML/HR IV SCH
[2023-09-13] MEDS: LACTATED RINGER'S 1,000 ML IV SCH (09:51)
[2023-09-13] MEDS: LR 60ML/HR IV SCH (09:51)
[2023-09-13] MEDS: FAMOTIDINE 20 MG TAB PO SCH (09:53)
[2023-09-13] MEDS: dexAMETHasone**PF** 10 MG/ML VIAL IV SCH (09:53)
[2023-09-13] MEDS: GABAPENTIN 300 MG CAP PO SCH (09:53)
[2023-09-13] MEDS: ACETAMINOPHEN 500 MG TAB PO SCH ×2 (09:53→14:41)
--- NOTE | 2023-09-13 09:58 | History & Physical Bridge Note ---
Date of Service September 13, 2023 History & Physical Bridge Note I have examined the patient, reviewed the History & Physical and in the interval since the performance of the History & Physical I have noted the following changes of clinical significance: no changes noted
[2023-09-13] MEDS ORDERED: ATROPINE SULFATE 0.1 MG/ML 10ML SYR IV PRN (10:15)
[2023-09-13] MEDS ORDERED: ePHEDrine sulfate 50 MG/ML AMP IV PRN (10:15)
[2023-09-13] MEDS ORDERED: ONDANSETRON INJ 2 MG/ML 2 ML VIAL IV PRN ×2 (10:15→13:39)
[2023-09-13] MEDS ORDERED: fentaNYL citrate PF 100 MCG/2 ML VIAL IV PRN (10:15)
[2023-09-13] MEDS ORDERED: PROMETHAZINE HCL 6.25 MG in SODIUM CHLORIDE 0.9% 50 ML IV PRN (10:15)
[2023-09-13] MEDS ORDERED: MIDAZOLAM HCL 1 MG/ML 2ML VIAL ONE (10:24)
[2023-09-13] MEDS ORDERED: DEXAMETHASONE SOD INJ 4 MG/ML VIAL ONE (10:24)
[2023-09-13] MEDS ORDERED: LIDOCAINE 2% 2 ML VIAL/AMP(20MG/ML) INFIL ONE (10:24)
[2023-09-13] MEDS ORDERED: ONDANSETRON INJ 2 MG/ML 2 ML VIAL ONE (10:24)
[2023-09-13] MEDS ORDERED: fentaNYL citrate PF 100 MCG/2 ML VIAL ONE ×2 (10:24→11:46)
[2023-09-13] MEDS ORDERED: PROPOFOL IV EMULSION 10 MG/ML 20 ML VIAL IV ONE ×2 (10:24→10:25)
--- OUTSIDE RECORDS SUMMARY | 2023-09-13 10:53 | External Medical Summary | Summary of Care ---
Author Name Unknown Organization [facility] [address] [facility] [address] Phone [phone] Care Team Providers Care Flight Controls Engineer Name Role Phone Unavailable Primary Care Provider Unavailabl e Encounter Details Date Type Department Care Team (Late st Contact Info) Description 08/19/2023 Result Scan Unspecified Department <No scans attached> Allergies Active Allergy Reactions Criticality Noted Date Comments Ciprofloxacin Hcl 06/15/2016 documented as of this encounter (statuses as of 08/25/2023) Medications Medication Sig Dispensed Refills Start Date End Date Status Acetaminophen 500 MG Oral Tablet Take 1 Tablet by mouth every 6 hours as needed. 0 Active traMADol HCl 50 MG Oral Tablet (Ultram)Indications:F meaghan back surgical syndrome Take 1 Tablet by mouth every 6 hours as needed for Pain, Severe. 90 Tablet 0 05/21/2023 Active Metoprolol Succinate ER 25 MG Oral Tablet Extended Release 24 Hour (toPROL XL)Indications:Essent ial hypertension with goal blood pressure less than 140/90 Take 1 Tablet by mouth in the morning and 1 Tablet before bedtime. 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 Prediabetes 05/21/2023 Primary osteoarthritis of both knees 05/21/2023 Hypertrophic cardiomyopathy 05/20/2023 Obesity, Class I, BMI 30.0-34.9 (see actual BMI) 05/20/2023 documented as of this encounter (statuses as of 08/25/2023) Resolved Problems Problem Noted Date Diagnosed Date Resolved Date Generalized osteoarthritis 05/20/2023 1 07/21/2022 NONE 09/10/2003 05/20/2023 documented as of this encounter (statuses as of 08/25/2023) Social History Tobacco Use Types Packs/Day Years Used Date Smoking Tobacco: Never Smokeless Tobacco: Never Alcohol Use Standard Drinks/Week Comments Yes 0 (1 standard drink = 0.6 oz pur e alcohol) Sex and Gender Information Value Date Recorded Sex Assigned at Not on file Gender Identity Not on file Sexual Orientation Not on file Job Start Date Occupation Industry Not on file Not on file Not on file documented as of this encounter Plan of Treatment Health Maintenance Due Date Last Done Comments DXA Scan 1955 Lipid Panel 1955 COVID-19 Vaccine (#1) 1955 Pneumococcal Vaccine: 65+ Ye ars (1 - PCV) 1961 Depression Screening 1967 Hepatitis C Screening 1973 DTaP,Tdap,and Td Vaccines (1 - Tdap) 1974 Mammogram 1995 Cologuard 2000 Colonoscopy 2000 Colorectal Cancer Screening 2000 Fecal Occult Blood Test 2000 Sigmoidoscopy 2000 Zoster Vaccines (1 of 2) 2005 Influenza Vaccine (FLU shot) (#1) 2023 HbA1c 04/29/2024 04/29/2023 GARDASIL-HPV IMMUNIZATION SERIES Aged Out No longer eligible based on patient's age to complete this topic Hepatitis B Aged Out No longer eligi ble based on patient's age to complete this topic MENINGOCOCCAL (MENACTRA/MENVEO) Aged Out No longer eligible based on patient's age to complete this topic documented as of this encounter Medical Devices Not on filedocumented as of this encounter Procedures Procedure Name Priority Date/Time Associated Diagnosis Comments EKG SCANNED RESULT 08/19/2023 documented in this encounter Results * EKG SCANNED RESULT (08/19/2023) 08/19/2023 No Physician Data Unknown EKG documented in this encounter
[2023-09-13] MEDS: TRANEXAMIC ACID 1,000 MG **IV Pre-op IV SCH (11:02)
[2023-09-13] MEDS: ceFAZolin 2000MG 2,000 MG/15 ML SYR IV SCH ×2 (11:13→17:35)
[2023-09-13] MEDS: ROPIV 0.5% 246mg, Ketorolac 30mg, EPINEPHrine 0.5mg in NSS INFIL SCH (11:37)
[2023-09-13] MEDS ORDERED: PHENYLEPHRINE 100MCG/ML 10ML SYR IV ONE (11:41)
[2023-09-13] MEDS ORDERED: PHENYLEPHRINE HCL 10 MG/ML VIAL ONE (11:41)
--- NOTE | 2023-09-13 12:20 | Operative Report ---
PG Post Operative Report Pre & Post Diagnosis Operation Date: 09/13/23 11:00 Pre-Op Diagnosis: Degenerative Joint Disease Left Knee Post-Op Diagnosis: Degenerative Joint Disease Left Knee I identified the patient and participated in the time-out.: Yes Procedure Operation Date: 09/13/23 11:00 Actual Procedures p Left Unicompartment Knee Arthroplasty(Left) - Gerardo Andres DO Surgeon Gerardo Andres DO Pediatric Clinical Dietician Gerardo Dugan PA-C Estimated Blood Loss 30 Findings Consistent with Post-Op Diagnosis Specimens Left femoral and tibial bone Description of Procedure Implants used: I used a Sheeba persona partial knee replacement with a size 5 femur, a size D tibia, and a 8 mm polyethylene insert. On September 13, 2023 Kayla arrived at [facility] for the above procedure. She was seen in the preoperative holding area and the operative extremity was identified and signed. She is given a preoperative antibiotic. She was taken back the operative room and laid on table in supine position. She was put under general anesthesia. The left knee was prepped and draped in sterile fashion. A timeout was done. The patient and the operative extremity was properly identified. A midline incision was made just medial to the patella. Dissection was taken down through the fascia. A very small mid vastus arthrotomy was used. Dissection was taken down to the knee joint and the joint was exposed. There was some grade 4 chondral changes off the medial compartment. There was no cartilage damage in the lateral compartment. The ACL was intact. The decision was made to proceed with a partial knee replacement. A external tibial guide was placed. 4 mm was resected off the proximal medial tibia. The knee was then brought out to full extension. A distal femoral cutting block was placed and the distal femur was resected. The knee was then flexed. The femur measured to be a size 5. A cutting block was then pinned in the place with headed pins. 2 peg holes were drilled. Posterior and chamfer cuts were made. The cutting guide was then removed. The tibia was exposed. The meniscus was removed. The tibia measured to be a size D. A cutting block was placed. 2 peg holes were drilled. A size 5 femoral trial was then impacted onto the distal femur. An 8 mm polyethylene insert was then snapped into place. The knee was brought through full range of motion and felt to be stable. All trial components were then removed. The tibial and femoral components were then cemented with Biomet cement. An 8 mm polyethylene insert was then snapped into place. The knee was brought through full range of motion and felt to be stable. Hemostasis was obtained. The arthrotomy was closed with #1 Vicryl suture. Surrounding soft tissues were injected with an orthopedic pain control cocktail. Skin was closed with 2-0 Vicryl, 3-0 V-Loc suture, and hardik. She was then placed in a compressive dressing. She was then extubated and transferred to a hospital bed. She was taken to the postanesthesia care unit in stable condition. She tolerated the procedure well. Gerardo Dugan PA-C, was present for the entire procedure. He was critical for patient positioning, prepping, draping, retraction exposure, wound closure and application of sterile dressing. I attest to the content of the Intraoperative Record and any orders documented therein. Any exceptions are noted below.
--- NOTE | 2023-09-13 12:58 | XRay Report ---
XR knee LT 1 or 2V routine HISTORY: 68 years-old Female Surgical Post Op left knee arthroplasty COMPARISON: 06/29/2023 TECHNIQUE: 2 views of the left knee FINDINGS: Medial compartment hemiarthroplasty with overlying skin hardik, expected postoperative soft tissue s welling with deep tissue air. Chronic corticated 1.5 cm ossification adjacent to the medial proximal tibia. Arterial calcifications. Mild lateral and patellofemoral compartment osteoarthritis. IMPRESSION: Expected postoperative changes status post medial compartment hemiarthroplasty. ACT 112: Negative or not required by law. The above report was generated using voice recognition software. It may contain grammatical, syntax o r spelling errors. Electronically signed by: Laurent Boss M.D. 09/13/2023 12:57 PM
[2023-09-13] MEDS ORDERED: NALOXONE HCL 0.4 MG/1 ML VIAL/CARP IV PRN (13:39)
[2023-09-13] MEDS ORDERED: MAGNESIUM HYDROXIDE SUSP 30 ML UDC PO PRN (13:39)
[2023-09-13] MEDS ORDERED: METOCLOPRAMIDE HCL INJ 5 MG/ML 2 ML VIAL IV PRN (13:39)
[2023-09-13] MEDS ORDERED: LORATADINE 10 MG TAB PO PRN (13:39)
[2023-09-13] MEDS ORDERED: bisacodyL 10 MG SUPP PR PRN (13:39)
[2023-09-13] MEDS: HYDROmorphone INJ 0.5 MG/0.5 ML SYR IV PRN (13:56)
[2023-09-13] MEDS: ORTHO JOINT ANESTHETIC ONE (14:01)
--- NOTE | 2023-09-13 14:34 | Anesthesiology Progress Note ---
Date of Service September 13, 2023 Anesthesia Post Procedure Vital Signs Vital Signs: Temp Pulse Pulse Resp BP Pulse Ox O2 Del Method 09/13/23 14:13 36.4 C L 77 14 132/81 97 Oxymask 09/13/23 13:15 36.4 C L 87 14 112/68 93 Nasal Cannula 09/13/23 13:05 88 18 127/73 89 L Room Air 09/13/23 12:55 89 17 109/71 95 Oxymask 09/13/23 12:45 87 18 109/68 94 Oxymask 09/13/23 12:35 36.6 C 87 17 108/65 95 Oxymask 09/13/23 09:40 36.9 C 91 H 20 152/81 H 95 Room Air O2 Flow Rate 09/13/23 14:13 2 09/13/23 13:15 2 09/13/23 13:05 09/13/23 12:55 10 09/13/23 12:45 10 09/13/23 12:35 10 09/13/23 09:40 Pain Intensity Left Knee: Pain Intensity: 5 Transfer of Care Handoff Completed per policy Notes Mental Status: alert / awake / arousable and participated in evaluation Patient Amnestic to Procedure: Yes Nausea / Vomiting: adequately controlled Pain: adequately controlled Airway Patency, RR, SpO2: stable & adequate BP & HR: stable & adequate Hydration State: stable & adequate Anesthetic Complications: no major complications apparent and Pt Satisfied with anesthetic care
[2023-09-13] MEDS: SODIUM CHLORIDE 0.9% 1,000 ML IV SCH (14:38)
[2023-09-13] MEDS: KETOROLAC TROMETHAMINE 15 MG/ML VIAL IV SCH (14:40)
[2023-09-13] MEDS: TRANEXAMIC ACID 1,000 MG **IV Intra-op IV SCH (14:47)
[2023-09-13] MEDS: oxyCODONE HCL IR 5 MG TAB (IMMEDIATE RELEASE) PO PRN (18:21)
[2023-09-13] MEDS: METOPROLOL SUCC 25MG EXT REL TAB PO SCH (21:22)
[2023-09-13] MEDS: ASPIRIN 81 MG ECTAB PO SCH (21:23)
[2023-09-13] MEDS: SENNA 8.6 MG TAB PO SCH (21:23)
[2023-09-13] MEDS: DOCUSATE SODIUM 100 MG CAP PO SCH (21:23)
[2023-09-14] MEDS: dexAMETHasone 4 MG TAB PO SCH (08:59)
[2023-09-14] MEDS: MULTIVITAMIN TAB PO SCH (08:59)
--- NOTE | 2023-09-14 10:13 | Orthopedic Progress Note ---
Date of Service September 14, 2023 Assessment & Plan (1) Status post left partial knee replacement: Overall, she is doing quite well today with good pain control to the left knee. She will work with physical therapy later this morning to work on ambulation and range of motion exercises. She is on aspirin for DVT prophylaxis. She can be discharged home later this morning pending physical therapy evaluation. She will follow-up in 2 weeks with orthopedics for postoperative care. Subjective . Kayla was seen and evaluated today at bedside resting comfortably in no apparent distress. She notes that her pain is well-controlled to the left knee. She has been up and ambulating with no significant issues. She has yet to be seen by physical therapy. She denies any other concerns today. Review of Systems All systems reviewed & are unremarkable except as noted in HPI & below. Physical Exam . On physical examination of the left knee, dressings are clean, dry, intact. Her leg is out in full extension. She has active plantarflexion dorsiflexion of the left ankle. +2 DP and PT pulses. Less than 2-second capillary refill. Normal sensation. Neurovascular intact. Results & Data Results & Data Laboratory Results . Diagnostic Findings . Postoperative x-rays of the left knee show prosthesis to be in anatomical alignment with no signs of fracture complication or loosening. PG Care Time/CCT Total # of Minutes Spent Total Time Spent with Patient: Total time spent is greater than 50% in coordination of care (as documented) at patient's floor/unit and/or counseling patient: Coding Level of Care Code 41238 Post Operative Follow-Up Diagnoses Status post left partial knee replacement Z96.652
--- NOTE | 2023-09-14 10:15 | Discharge Summary ---
Date of Service September 14, 2023 Admission HPI (Per Admitting) Kayla is a pleasant 68-year-old female who has been dealing with chronic increasing left knee pain. She has been treated by other providers. She has had cortisone injections and viscosupplementation. X-rays have shown progressing medial compartmental arthritis of the left knee. She had an MRI of the knee, which showed mostly medial compartmental arthritis, but also some arthritic changes in the lateral compartment of the patellofemoral joint. She has complex medial meniscus tears. She has a history of multiple lumbar surgeries. She does not want a knee replacement. She was very much hoping for a partial knee replacement. She is well read on the subject. After failing conservative treatment, she has elected proceed with a left partial knee replacement surgery. Admission Exam (Per Admitting) On physical examination of the left knee, she has slight varus deformity. She has tenderness palpation of the distal medial femoral condyle and over the medial joint line.. Principal Diagnosis Same as "Discharge Diagnosis" noted below under Discharge Instructions. Discharge Exam . On physical examination of the left knee, dressings are clean, dry, intact. Her leg is out in full extension. She has active plantarflexion dorsiflexion of the left ankle. +2 DP and PT pulses. Less than 2-second capillary refill. Normal sensation. Neurovascular intact. Discharge Data Procedures Performed Operation Date: 09/13/23 11:00 Actual Procedures p Left Unicompartment Knee Arthroplasty(Left) - Gerardo Andres DO Ordered Studies 09/13/23 05:00 US - OR guided needle placemen Routine Hospital Course (1) Status post left partial knee replacement: On September 13, 2023 Kayla arrived at [facility] and underwent a left unicompartmental knee arthroplasty performed by Dr. Andres with no complications. She had a general anesthetic. Postoperatively, she was started on aspirin for DVT prophylaxis and transferred to the general orthopedic floor in stable condition. Her hospital course was uneventful. On postoperative day #1, her vital signs were stable and her pain was well-controlled. She participated well with physical therapy working on ambulation and range of motion exercises. She was then discharged home in stable condition. She will follow-up in 2 weeks with orthopedics for postoperative care. PG Care Time/CCT Total # of Minutes Spent Total Time Spent with Patient: Total time spent is greater than 50% in coordination of care (as documented) at patient's floor/unit and/or counseling patient: Discharge Plan Discharge Items Patient Disposition: Home - Home Health Services Reason For Visit: Degenerative Joint Disease Left Knee Discharge Diagnosis: Same Activity: Per Instructions section Non-emergency contact: Surgeon Call non-emergency contact if: your temperature is above 101.5, your wound has increased redness, your wound has increased drainage and your wound pain has increased Follow-up/Referrals: PCP,NO [Primary Care Provider] - Diet: Regular Addtl Attending Provider Instructions: Activity and Therapy Recommendations: * If you are using [facility] then therapy will be provided at your home until they feel you have accomplished all of your goals. * If you are using [facility] then Physical Therapy will be provided until they feel you are ready to start Outpatient Physical Therapy. * If you are not using home therapy then Outpatient Physical Therapy should start about 3-5 days from your day of surgery. Therapy will last about 6-10 weeks * It is important not to put a pillow under your knee when you are relaxing or sleeping. It is just as important to make sure you are getting your knee perfectly straight as it is to regain your knee bend. * You were shown a series of exercises in the hospital. Do these exercises three times each day including the exercises you were shown in physical therapy. * Get up and walk several times each day. For the first four weeks, try not to stand or walk for more than one hour at a time. If you do stand or walk for more than one hour, you will not hurt anything, but your leg will likely swell. * As you feel comfortable, you may change from the walker or crutches to a cane and then to independent walking. Medications: * Narcotic You will likely be sent home from the hospital with a prescription for the narcotic pain medication that worked best throughout your stay. * Cefadroxil -take the antibiotic twice a day for 10 days to help prevent infection. * Aspirin Most patients will be required to take Aspirin 81mg twice a day for 6 weeks after surgery. This is obtained [id number] and a prescription is not necessary. * Other medications may be prescribed for specific circumstances. If you have any questions, please call the office at . * Resume previous home medications unless otherwise instructed TEDs/Elastic Stockings: The white elastic stockings help limit swelling and prevent blood clots from forming in your legs.~ The more you wear them, the more they work. Wear them for six weeks. Dressing Care: The dressing can be changed after physical therapy on postop day #1. Daily dry dressing changes for a few days, especially if the incision is still draining some. If the incision is not draining then you may leave the hardik open to air. If there is a little bit of drainage or if the hardik are getting stuck on your clothing then cover the incision with a dry dressing. The hardik will be removed at your 2 week follow-up appointment. Showering: You may shower 5 days from the day of surgery as long as the incision is no longer draining. You may shower with the hardik exposed. Let soapy water run over the hardik and pat them dry. Do not scrub or soak the incision. Things To Watch For: * Drainage from the incision site that occurs more than one week after your surgery. * Increased redness at the incision site. * Fever above 102 degrees Fahrenheit. * Unusual chest pain or shortness of breath. * Call [facility] at with any of the above problems Follow-Up Visit: Follow-up with Dr. Andres's PA (Gerardo Dugan) 2-3 weeks after your day of surgery. He will remove your hardik and answer any questions. If you have any additional questions or concerns, Dr Andres is usually in the office at the same time and will be available An appointment was probably scheduled when you signed-up for surgery in the office. If you have any questions call Office Instructions: More detailed instructions as well as Frequently Asked Questions were provided in a folder by our office when you signed-up for surgery. Please review these instructions when you get home. If you have any further questions or concerns, please feel free to call the office at [phone] Pending Studies at Discharge: No Stand-Alone Forms: [facility], Smoking Cessation Medications and DC Order Prescriptions: New aspirin 81 mg Tablet,Delayed Release (Dr/Ec) 81 mg PO BID 42 Days Qty: 84 0RF oxycodone 5 mg Tablet 5 mg PO Q6 PRN (Reason: pain) Qty: 30 0RF cefadroxil 500 mg capsule 500 mg PO BID 10 Days Qty: 20 0RF Continued metoprolol succinate 25 mg Tablet Extended Release 24 Hr 25 mg PO BID tramadol 50 mg tablet 50 mg PO Q6H PRN (Reason: pain, moderate) Qty: 30 0RF acetaminophen 500 mg Tablet 500 mg PO Q6H PRN (Reason: prn) diphenhydramine HCl [Benadryl] 25 mg Capsule 25 mg PO Q6H PRN (Reason: seasonal allergies) loratadine 10 mg Tablet 10 mg PO QAM PRN (Reason: prn) Admission Data Admit Date/Time: 09/13/23 12:36 Attending Provider: Gerardo Andres Admit Provider: Gerardo Andres Primary Care Provider: PCP,NO Other Interventions: Discharge Summary Assessment (RN) Last Done: 09/14/23 09:11
== END 2023-09-14 13:20 | disposition home health service (06) ==
LOC: ASU 09:16 → 3E 09:16
DX: Z79.899 Other long term (current) drug therapy; I42.1 Obstructive hypertrophic cardiomyopathy; Z88.1 Allergy status to other antibiotic agents; M25.762 Osteophyte, left knee; Z88.8 Allergy status to other drugs, medicaments and biological substances; M17.12 Unilateral primary osteoarthritis, left knee

== ENCOUNTER 2024-03-17 06:59 | Inpatient (IN) ==
--- NOTE | 2024-03-09 10:43 | Anesthesiology Consultation ---
Date of Service March 09, 2024 Assessment & Plan Chart Review Chart Review: Acceptable Risk for Surgery and Patient NOT seen in Pre Admission Testing Consults Requested none History Surgery Operation Date: 03/17/24 07:15 Proposed Procedures p Bilateral Mastectomy with Bilateral [place] Node Biopsy - Samuel Flower DO Height/Weight Height: 5 ft 5 in Weight: 87.997 kg Allergies Allergy/AdvReac Type Severity Reaction Status Date / Time ciprofloxacin Allergy Mild Swollen Verified 02/23/24 12:50 feet (unable to walk) NSAIDS (Non-Steroidal AdvReac Increased Verified 02/23/24 12:50 Anti-Inflamma bleeding Medications Home Medications Medication Instructions Recorded Confirmed Last Taken metoprolol succinate 25 mg 25 mg PO BID 08/10/19 03/09/24 09/12/23 06:30 tablet,extended release 24 hr tramadol 50 mg tablet 50 mg PO Q6H PRN pain, moderate 09/08/19 03/09/24 09/12/23 10:00 #30 tabs acetaminophen 500 mg tablet 500 mg PO Q6H PRN prn 08/12/23 03/09/24 09/12/23 10:00 diphenhydramine HCl 25 mg capsule 25 mg PO Q6H PRN seasonal allergies 08/12/23 03/09/24 Unknown (Benadryl) loratadine 10 mg tablet 10 mg PO QAM PRN prn 08/12/23 03/09/24 Unknown Past Medical History Medical History Neurogenic claudication due to lumbar spinal stenosis Osteoarthritis Breast cancer Chronic back pain HOCM (hypertrophic obstructive cardiomyopathy) Echo 04/2023, [facility] Gout hx History of chemotherapy (2003) Ovarian cancer hx endometrioma s/p excision, chemo 2003 History of blood transfusion Post-op Systolic anterior movement of mitral valve Degenerative disc disease Past Family History Family History Mother Diabetes Hypertension Stroke Past Surgical History Surgical History Status post left partial knee replacement (09/2023) H/O total hysterectomy (2023) Hx of cataract surgery (2016) R/L Hx of tonsillectomy Age 6 History of lumbar spinal fusion 2017 L4-S1 decompression/fusion (09/07/2019): Grade view 1, [place] #2, ETT 7.0 at [facility] (postop feet swelling 2 weeks after surgery) Social History Smoking Status: Never smoker Do You Dip or Chew Tobacco: No Hx Alcohol Use: Yes alcohol intake frequency: holidays/special occasions only Hx Substance Use: No substance use type: does not use Lab Results Anesthesia Preop Results Results Anesthesia Widget: WBC 6.52 K/ul (4.8-10.8) 03/01/24 Hgb 13.0 g/dl (12.0-16.0) 03/01/24 Hct 44.7 % (37.0-47.0) 03/01/24 Plt 200 K/uL (130-400) 03/01/24 Na 137 mmol/L (136-145) 03/01/24 K 4.4 mmol/L (3.5-5.1) 03/01/24 Cl 103 mmol/L (98-107) 03/01/24 CO2 27 mmol/L (21-32) 03/01/24 BUN 18 mg/dl (6-23) 03/01/24 Creat 0.66 mg/dl (0.6-1.2) 03/01/24 Glucose Level 100 mg/dl (70-99(Fasting)) H 03/01/24 Testing Other Testing Electrocardiogram Date: 08/19/23 NSR at 70bpm. "Normal ECG" Chest X-Ray Date: 08/19/23 FINDINGS: PA and lateral chest radiographs are compared to study dated 08/17/2019. Correlation is made with chest CT dated 08/24/2019. The cardiomediastinal silhouette is unremarkable. The lungs and pleural spaces are clear. There is no pneumothorax. The bony thorax appears intact. Fusion hardware is seen at the thoracolumbar junction. IMPRESSION: No active disease in the chest. Echocardiogram Date: 04/14/23 LVEF 65-69%. LV cavity size is small. Moderate concentric LVH with severe asymmetric hypertrophy involving the basal and mid anterior septum. The maximal thickness of the base and mid anterior septum at end diastole is 1.9 cm. Ventricular cavity is narrowed below the left ventricular outflow tract. There is a late peaking outflow tract gradient of 15 mm resting gradient. Gradient increases with Valsalva but obstruction location appears to be at mid ventricular level. LV wall motion is normal. Mild to moderate MR. Mitral valve chordae are redundant with chordal systolic anterior motion (ROWAN). Grade 1 diastolic dysfunction. Mildly calcified aortic valve. Stress Test Date: 09/26/18 Type: nuclear Lexiscan nuclear cardiac stress test negative for ischemia. Gated SPECT images reveal normal myocardial thickening and wall motion. LVEF 63%. Borderline elevated TID index, 1.25.
[2024-03-17] MEDS ORDERED: MIDAZOLAM HCL 1 MG/ML 2ML VIAL ONE (07:12)
[2024-03-17] MEDS ORDERED: fentaNYL citrate PF 100 MCG/2 ML VIAL ONE ×2 (07:12→09:37)
[2024-03-17] MEDS ORDERED: KETAMINE HCL 10MG/ML SYR ONE (07:12)
[2024-03-17] MEDS ORDERED: ACETAMINOPHEN 1000 MG/100 ML IV IV ONE (07:15)
[2024-03-17] MEDS: LACTATED RINGER'S 1,000 ML IV SCH ×3 (07:45→16:43)
[2024-03-17] MEDS ORDERED: ALBUMIN HUMAN 5% 12.5 GM/250 ML VIAL IV ONE (08:37)
[2024-03-17] MEDS ORDERED: ONDANSETRON INJ 2 MG/ML 2 ML VIAL IV PRN ×2 (08:55→16:22)
[2024-03-17] MEDS ORDERED: ePHEDrine sulfate 50 MG/ML AMP IV PRN (08:55)
[2024-03-17] MEDS ORDERED: fentaNYL citrate PF 100 MCG/2 ML VIAL IV PRN (08:55)
[2024-03-17] MEDS ORDERED: HYDROmorphone INJ 1 MG/ML SYRINGE IV PRN (08:55)
[2024-03-17] MEDS ORDERED: ATROPINE SULFATE 0.1 MG/ML 10ML SYR IV PRN (08:55)
--- NOTE | 2024-03-17 08:58 | History & Physical Bridge Note ---
Date of Service March 17, 2024 History & Physical Bridge Note I have examined the patient, reviewed the History & Physical and in the interval since the performance of the History & Physical I have noted the following changes of clinical significance: No changes to health status. Patient presents for b/l mastectomy with b/l SNB.
--- NOTE | 2024-03-17 09:24 | Nuclear Medicine Report ---
LYMPHOSCINTIGRAPHY CLINICAL HISTORY: Bilateral breast cancer. PROCEDURE: Using standard sterile technique, 4 intradermal and one deep injection of 537.0 uCi of Lym phoseek was placed in the right breast. The patient tolerated the procedure well. There were no immed iate complications. The patient was subsequently transported to the surgical suite. No imaging was ob tained at the referring physician's request. IMPRESSION: Injection of 537.0 uCi of Lymphoseek in the right breast. ACT 112: Negative or not required by law. Electronically signed by: Laurent Boss M.D. 03/17/2024 9:22 AM
--- NOTE | 2024-03-17 09:25 | Nuclear Medicine Report ---
LYMPHOSCINTIGRAPHY CLINICAL HISTORY: Bilateral breast cancer. PROCEDURE: Using standard sterile technique, 4 intradermal and one deep injection of 498.0 uCi of Lym phoseek was placed in the left breast. The patient tolerated the procedure well. There were no immedi ate complications. The patient was subsequently transported to the surgical suite. No imaging was obt ained at the referring physician's request. IMPRESSION: Injection of 498.0 uCi of Lymphoseek in the left breast. ACT 112: Negative or not required by law. Electronically signed by: Laurent Boss M.D. 03/17/2024 9:23 AM
[2024-03-17] MEDS: ceFAZolin 2000MG 2,000 MG/15 ML SYR IV SCH (09:28)
[2024-03-17] MEDS: METHYLENE BLUE 0.5% 10 ML VIAL ONE (10:00)
[2024-03-17] MEDS ORDERED: PROPOFOL IV EMULSION 10 MG/ML 20 ML VIAL IV ONE (10:05)
[2024-03-17] MEDS ORDERED: ROCURONIUM BROMIDE 10 MG/ML 5 ML VIAL IV ONE ×2 (10:05→10:27)
[2024-03-17] MEDS ORDERED: DEXAMETHASONE SOD INJ 4 MG/ML VIAL ONE (10:05)
[2024-03-17] MEDS ORDERED: ONDANSETRON INJ 2 MG/ML 2 ML VIAL ONE (10:05)
[2024-03-17] MEDS ORDERED: LIDOCAINE 2% 2 ML VIAL/AMP(20MG/ML) INFIL ONE (10:05)
[2024-03-17] MEDS ORDERED: PHENYLEPHRINE HCL 10 MG/ML VIAL ONE (10:12)
[2024-03-17] MEDS ORDERED: PHENYLEPHRINE 100MCG/ML 10ML SYR IV ONE (10:12)
[2024-03-17] MEDS ORDERED: HYDROmorphone INJ 1 MG/ML SYRINGE ONE (12:43)
[2024-03-17] MEDS ORDERED: ceFAZolin 330 MG/ML 1 GM VIAL ONE (13:05)
[2024-03-17] MEDS: ceFAZolin 2000MG 2,000 MG/15 ML SYR IV ONE (13:38)
[2024-03-17] MEDS ORDERED: SUGAMMADEX SODIUM 200 MG/2 ML VIAL IV ONE (14:03)
[2024-03-17] MEDS: BUPIVACAINE/EPINEPHRINE 0.5% MPF 1:200,000 30 ML VIAL ONE (14:29)
--- NOTE | 2024-03-17 15:30 | Operative Report ---
PG Post Operative Report Pre & Post Diagnosis Operation Date: 03/17/24 09:00 Pre-Op Diagnosis: Bilateral Breast Cancer Post-Op Diagnosis: Bilateral Breast Cancer I identified the patient and participated in the time-out.: Yes Procedure Operation Date: 03/17/24 09:00 Actual Procedures p Bilateral Mastectomy with Bilateral Ada Node Biopsy(Bilateral) - Samuel Sykes DO Surgeon Samuel Sykes DO Trimmer Meat CARRIE Mcmahon Estimated Blood Loss 50 Findings See Below The right axillary lymph node containing the biopsy marker was obtained during sentinel lymph node biopsy and was imaged to confirm. The palpable mass at the lower outer right breast. Specimens Right axillary sentinel lymph nodes. 4 right axillary sentinel lymph nodes were removed. The highest ex vivo count was 397 obtained from sentinel node #2. Ada node 1 ex vivo 364, sentinel node 3 ex vivo 252, sentinel node 4 ex vivo 148. Right breast. Short silk suture superior, long silk suture axillary tail. Double white suture marking the area of palpable mass at the level of the skin. Additional right chest wall subcutaneous tissue and skin. Left axillary sentinel lymph nodes. 4 left axillary lymph nodes were removed. The highest ex vivo count was from sentinel node #1 at 369. Ada node #2 ex vivo 295, sentinel node #3 ex vivo 85, sentinel node #4 ex vivo 331. Left breast. Short silk suture superior, long silk suture axillary tail. Drains 10 [place] SARAH right chest wall 10 [place] SARAH left chest wall Anesthesia Type General Complications None Indications Bilateral breast cancers Description of Procedure The patient was brought back to the operating room and placed on the operating table in supine position. She was connected to cardiac and oxygen monitoring, SCDs were applied to bilateral lower extremities and the patient was administered supplemental O2. General anesthetic was administered and a secure airway was established. The anterior chest and axilla bilaterally were prepped and draped in typical sterile fashion and a timeout was conducted. After outlining anatomical landmarks for the borders of the mastectomy and creating the line for incision, local anesthetic was used anesthetize the skin and subcutaneous tissues. An incision was made in the skin using a 15 blade and skin flaps were elevated in all directions. The right breast was removed using cautery dissection. Bleeding was controlled with cautery and or silk suture ties. Prior to transecting the axillary tail, sentinel lymph node biopsy was performed. 4 sentinel lymph nodes were removed. Additional skin and subcutaneous tissue was removed from the lateral aspect of the mastectomy site for a cosmetic closure. A 10 [place] flat SARAH was placed at the chest wall site. The deep dermis was approximated using 3-0 Vicryl suture. A 4 of subcuticular stitch was then placed. The left breast was then addressed. In a similar fashion, a sterile marking pen was used to outline the anatomical landmarks of the border of a mastectomy and a line for incision was drawn. Local anesthetic was used anesthetize skin and subcutaneous tissue. Incision was made in the skin using a 15 blade and skin flaps were elevated in all directions. The left breast was removed using cautery dissection. Bleeding was controlled with cautery and/or silk suture ties along the way. Just prior to transecting the axillary tail, sentinel lymph node biopsy was performed. 4 sentinel lymph nodes were removed. The deep dermis was approximated using 3-0 Vicryl suture and a subcuticular 4-0 running suture was placed. The incisions were dressed with Steri-Strips covered by dry gauze, ABD and then wrapped with an Bhavik bandage. Drain sponges were placed around the drain site. The patient was straight catheterized. Anesthesia was discontinued, the patient was awakened and a secure airway was removed. She tolerated the procedure well. She was transferred to recovery in stable condition. I attest to the content of the Intraoperative Record and any orders documented therein. Any exceptions are noted below.
--- NOTE | 2024-03-17 15:35 | Anesthesiology Progress Note ---
Date of Service March 17, 2024 Anesthesia Post Procedure Vital Signs Vital Signs: Temp Pulse Pulse Resp BP Pulse Ox O2 Del Method 03/17/24 15:20 92 H 19 118/62 95 Oxymask 03/17/24 15:10 92 H 20 122/60 96 Oxymask 03/17/24 15:00 97.2 F L 94 H 23 115/53 L 93 Oxymask 03/17/24 07:16 97.2 F L 76 20 132/80 96 Room Air O2 Flow Rate 03/17/24 15:20 7 03/17/24 15:10 7 03/17/24 15:00 7 03/17/24 07:16 Transfer of Care Handoff Completed per policy Notes Mental Status: alert / awake / arousable and participated in evaluation Patient Amnestic to Procedure: Yes Nausea / Vomiting: adequately controlled Pain: adequately controlled Airway Patency, RR, SpO2: stable & adequate BP & HR: stable & adequate Hydration State: stable & adequate Anesthetic Complications: no major complications apparent and Pt Satisfied with anesthetic care
[2024-03-17] MEDS: FAMOTIDINE/PF 20 MG/2 ML VIAL IV ONE (16:06)
[2024-03-17] MEDS ORDERED: MoRPHine SULFATE 2 MG/ML CARP IV PRN (16:22)
[2024-03-17] MEDS ORDERED: MoRPHine SULFATE 4 MG/ML 1 ML CARP\\VIAL IV PRN (16:22)
[2024-03-17] MEDS ORDERED: traMADol HCL 50 MG TABLET PO PRN (16:22)
[2024-03-17] MEDS ORDERED: LORATADINE 10 MG TAB PO PRN (16:30)
[2024-03-17] MEDS: ACETAMINOPHEN 1,000 MG/100 ML VIAL IV SCH (16:44)
--- NOTE | 2024-03-17 19:43 | Hospitalist Consultation ---
Date of Consultation March 17, 2024 Assessment & Plan (1) Breast cancer, left: (2) Carcinoma of right breast metastatic to axillary lymph node: (3) Carcinoma of lower-outer quadrant of right breast in female, estrogen receptor positive: (4) HOCM (hypertrophic obstructive cardiomyopathy): (5) Hypotension after procedure: (6) Postoperative hypoxemia: Plan Hypotension -S/P bilateral mastectomy, hypotensive with systolic BP as low as 68 -Symptomatic hypotension likely secondary to NPO status for ~22 hours -EBL of 50mL on operative report, SARAH drains emptied while at bedside and do not appear to be refilling rapidly -CBC, type/screen, coags ordered. Troponin, EKG obtained -1L NSS bolus ordered and 5% albumin, will continue maintenance IV fluids -Patient symptomatically improving, will monitor BP response with ongoing fluids -Will transfer patient from med/surg to PCU -Repeat CBC, metabolic panel in a.m. Hypoxemia, postoperative -Lungs clear on bedside assessment -Chest x-ray ordered, no acute cardiopulmonary findings -Hypoxic to 70% when patient removed oxymask, spO2 increased to 97% with 3L oxymask -Titrate down oxygen as able -No history of respiratory conditions, no baseline oxygen requirement S/P Bilateral Mastectomy -Patient underwent surgery on 03/[address] Sykes -EBL noted at 50mL -Post-op management per surgical team History of HOCM -Follows with [facility] -Patient reports this was found incidentally, she was never symptomatic -Nursing reports last echo with EF of 50%, last echo report I can view at this time showed EF 65-69% (04/2023) Diet: Regular, maintenace IVF VTE Prophylaxis: SCDs Dispo: PCU Code Status: Full Code Supervising Physician Co-Signing Physician Notes I personally saw and examined the patient. I verified all vance points and agree with resident physician Dr Mago Head, DO with the following exceptions and/or additions: Code purple: Patient hypotensive and hypoxic after sitting up for the first time after operation and taking off her oxygen (been on 3LPM O2 post operatively). No dizziness or shortness of breath while lying down. A&Ox3, HS RRR, no murmurs, Chest CTAB, Abdo SNT. A/P Post operative hypotension - in setting of HOCM, improved after 1L LR bolus. will move patient to PCU and get repeat labs. D iscussed care with resident, surgery PA (Elbert), ICU PACKING CHECKER (Isac) and handed patient over to Dr Garcia as patients primary PCP is [facility]. History of Present Illness Attending Physician: Samuel Sykes DO History of Present Illness Kayla Brizuela is a 69 year-old female with medical history including current breast cancer, OA, spinal stenosis, and HOCM who was admitted to [facility] for bilateral mastectomy with sentinel node biopsy due to breast cancer. She underwent the mastectomy on 03/17/24 and returned to her room at approximately 16:10. Patient was on 3L oxymask since her return to the floor from PACU. At approximately 19:15, patient was found to have removed her oxygen mask and her spO2 was ~70%. Patient reported feeling lightheaded/dizzy and clammy at that time, a blood glucose was checked and vitals showed a BP of 85/52 so a code purple was called. Upon arriving to the [facility], the patient was also being assess by the surgical PA. Nursing confirmed that the patient had not eaten since her operation and had not received any pain medication since arriving on the floor. Additional information from patient was obtained at bedside, she confirms that she has not eaten or drank liquids since 9pm last night. She endorses a history of HOCM which she states was found incidentally after a spinal surgery. Nursing reports that her last echocardiogram was noted to have an EF of 50%. Patient denies history of prior blood clots and is not taking any anticoagulants. While at bedside, she denies any chest pain and states she is feeling "better" and no longer feels lightheaded. Allergies Allergy/AdvReac Type Severity Reaction Status Date / Time ciprofloxacin Allergy Mild Swollen Verified 03/17/24 07:24 feet (unable to walk) NSAIDS (Non-Steroidal AdvReac Increased Verified 03/17/24 07:24 Anti-Inflamma bleeding Home Medications Medication Instructions Recorded Confirmed Type metoprolol succinate 25 mg 25 mg PO BID 08/10/19 03/17/24 History tablet,extended release 24 hr tramadol 50 mg tablet 50 mg PO Q6H PRN pain, moderate 09/08/19 03/17/24 Rx #30 tabs acetaminophen 500 mg tablet 500 mg PO Q6H PRN prn 08/12/23 03/17/24 History diphenhydramine HCl 25 mg capsule 25 mg PO Q6H PRN seasonal allergies 08/12/23 03/17/24 History (Benadryl) loratadine 10 mg tablet 10 mg PO QAM PRN prn 08/12/23 03/17/24 History tramadol 50 mg tablet 50 mg PO .q4h PRN pain, for 03/17/24 Rx initial therapy, max 6 tabs/day #15 tabs Patient History Medical History Neurogenic claudication due to lumbar spinal stenosis Osteoarthritis Breast cancer Chronic back pain HOCM (hypertrophic obstructive cardiomyopathy) Echo 04/2023, [facility] Gout hx History of chemotherapy (2003) Ovarian cancer hx endometrioma s/p excision, chemo 2003 History of blood transfusion Post-op Systolic anterior movement of mitral valve Degenerative disc disease Surgical History Status post left partial knee replacement (09/2023) H/O total hysterectomy (2023) Hx of cataract surgery (2016) R/L Hx of tonsillectomy Age 6 History of lumbar spinal fusion 2017 L4-S1 decompression/fusion (09/07/2019): Grade view 1, [place] #2, ETT 7.0 at [facility] (postop feet swelling 2 weeks after surgery) Family History Mother Diabetes Hypertension Stroke Social History Smoking Status: Never smoker Second Hand Exposure: No; Do You Dip or Chew Tobacco: No; Tobacco Cessation Education Requested by Patient: No Hx Alcohol Use: Yes Hx Substance Use: No Preferred Language: Kyrgyz Communication Ability: Effective Fishing Tool Operator Required: No Beliefs That Will Affect Care: None marital status: Single Current Living Situation: Alone current occupational status: retired Other Information That Helps Us Care for You: No Feels Safe at Home: Yes Safety Concerns: Feels Safe At This Time Diet: regular during the past year weight has: remained stable Assistive Devices: Cane and Denture - Upper Assistive Devices Comment: cane prn Review of Systems Review of Systems: As per above Physical Exam Constitutional: well developed and well nourished Eyes: + anicteric sclerae; no conjunctival abn ormality ENMT: Ears: no external ear abnormality Nose: no external nose abnormality oxymask in place Respiratory: normal respiratory effort, lungs clear to auscultation Cardiovascular: Rate/Rhythm: regular rate and regular rhythm Chest (Breasts): Additional Comments: SARAH drains in place Skin: no rashes, warm and dry Psychiatric: A+Ox3, euthymic affect Results & Data Results & Data Vital Signs (Past 12 Hours) Vital Signs Temp Pulse Pulse Resp BP BP Pulse Ox 03/17/24 19:10 36.7 C 66 16 85/52 L 97 03/17/24 18:22 36.8 C 86 14 112/56 L 97 03/17/24 17:15 36.6 C 83 14 115/63 95 03/17/24 16:45 36.8 C 84 15 112/68 94 03/17/24 16:22 36.9 C 85 17 107/66 96 03/17/24 16:10 03/17/24 15:50 37.2 C 86 18 112/58 L 92 03/17/24 15:40 85 15 110/62 94 03/17/24 15:30 88 24 97/55 L 95 03/17/24 15:20 92 H 19 118/62 95 03/17/24 15:10 92 H 20 122/60 96 03/17/24 15:00 36.2 C L 94 H 23 115/53 L 93 O2 Del Method O2 Flow Rate 03/17/24 19:10 Oxymask 03/17/24 18:22 Oxymask 3 03/17/24 17:15 Oxymask 3 03/17/24 16:45 Oxymask 3 03/17/24 16:22 Oxymask 3 03/17/24 16:10 Oxymask 3 03/17/24 15:50 Nasal Cannula 2 03/17/24 15:40 Nasal Cannula 2 03/17/24 15:30 Oxymask 7 03/17/24 15:20 Oxymask 7 03/17/24 15:10 Oxymask 7 03/17/24 15:00 Oxymask 7 Resident Activity Tracking Resident Involvement: Resident Care Provided Care Provided: Adult Hospital Medicine (1) Breast cancer, left Breast location: overlapping sites of breast
--- NOTE | 2024-03-17 19:44 | XRay Report ---
SINGLE VIEW CHEST CLINICAL HISTORY: Hypoxia FINDINGS: An AP, portable, upright chest radiograph is compared to study dated 08/19/2023 and correlate d with chest CT dated 08/24/2019. The examination is degraded by portable technique and apical lordoti c positioning. Surgical drains project over the chest wall bilaterally. The heart is enlarged. The pu lmonary vasculature is noncongested. There is mild bibasilar atelectasis. No airspace consolidation o r large pleural effusion is identified. No pneumothorax is seen. The bony thorax is grossly intact. F usion hardware is seen at the thoracolumbar junction. There are foci of subcutaneous gas in the left chest wall. IMPRESSION: 1. Mild cardiomegaly with no acute cardiopulmonary abnormality identified. 2. Surgical drains project over the chest wall bilaterally. Correlate with the operative history. ACT 112: Negative or not required by law. Electronically signed by: Chase García M.D. 03/17/2024 7:42 PM
[2024-03-17] MEDS: ALBUMIN 5% 250 ML IV ONE (19:49)
[2024-03-17] MEDS: ALBUMIN HUMAN 5% 12.5 GM/250 ML VIAL IV ONE (19:50)
[2024-03-17 19:52] LABS: Hematocrit (blood only) 33.1 % (37.0-47.0); Hemoglobin 9.7 g/dl (12.0-16.0); Mean Corpuscular Hemoglobin 18.3 pg (25.0-34.0); Mean Corpuscular Hgb Conc 29.3 g/dL (32.0-36.0); Mean Corpuscular Volume 62.6 fL (80.0-100.0); Platelet Count 208 K/uL (130-400); RDW Coefficient of Variation 17.9 % (11.5-14.5); RDW Standard Deviation 38.2 fL (36.4-46.3); Red Blood Count 5.29 M/uL (4.20-5.40); White Blood Count 17.31 K/ul (4.8-10.8)
[2024-03-17 19:58] LABS: Partial Thromboplastin Ratio 0.9; Partial Thromboplastin Time 24 Seconds (21-31)
[2024-03-17 20:00] LABS: Albumin Level 3.6 gm/dl (3.4-5.0); Bilirubin,Total 0.9 mg/dl (0.2-1.0); Calcium 8.3 mg/dl (8.6-10.3); Magnesium 1.7 mg/dl (1.7-2.4); Potassium 4.8 mmol/L (3.5-5.1)
[2024-03-17 20:11] LABS: Basophils # (auto) 0.05 K/uL (0.00-0.20); Basophils % (auto) 0.3 %; Immature Granulocytes # (auto) 0.13 K/uL (0.01-0.20); Immature Granulocytes % (auto) 0.8 %; Lymphocytes # (auto) 1.13 K/uL (1.20-3.40); Lymphocytes % (auto) 6.5 %; Microcytosis Present; Monocytes # (auto) 0.88 K/uL (0.11-0.59); Monocytes % (auto) 5.1 %; Neutrophils # (auto) 15.12 K/uL (1.40-6.50); Neutrophils % (auto) 87.3 %; Polychromasia 1+
--- NOTE | 2024-03-17 20:19 | Communication Note ---
Date of Service: March 17, 2024 A code purple was called on this patient at approximately 7:15 PM on 03/17/2024. I presented to bedside within 5 minutes of this notification This patient underwent bilateral mastectomies by Dr. Davis of [facility] physician of general surgery this evening. I discussed with nurses attending the patient and when they went to assess the patient she was noted to be hypotensive with a blood pressure in the 60s as well as clammy and a pulse ox in the 70s. By the time of my arrival the patient's pulse ox was noted to be 97% on a 3 L facemask. The patient had been given some intravenous fluids and her blood pressure did improve with a systolic blood pressure ranging from 90-100. She was not noted to be tachycardic. The patient specifically denies any chest pain or shortness of breath. She does note some postoperative surgical pain. She does not have any nausea or vomiting. The patient was noted to have [address] They were emptied at the bedside with the right 1 being 60 cc of the sanguinous fluid and in the left 1 being 40 cc of sanguinous fluid. The drains were recharged and assessed and they did not rapidly fill with blood. A chest x-ray was obtained that did not show any evidence of pneumothorax or pneumonia. An EKG was performed that showed normal sinus rhythm. There did not appear to be any changes indicative of acute ischemia. BSG was checked and it was noted be 209. Stat laboratories were obtained. CBC revealed white blood cell count was elevated 17.3. Her hemoglobin and hematocrit 9.7 and 33.1. Platelet count is within the normal range. Coagulation studies were within the normal range. Chemistry profile showed sodium and potassium were both normal. BUN and creatinine are currently pending. A lactic acid level was elevated at 3.3. A troponin was ordered and is pending. Should be noted that the patient does report a history of hypertrophic cardiomyopathy she notes that she has never had any symptoms specifically denying any chest pain or syncopal episodes. From the patient's description this was found incidentally during evaluation of another condition. Will proceed as follows: Remove the patient to a telemetry unit for close monitoring I will repeat a hemoglobin and hematocrit in approximate 2 hours to assess any further drop or stability of this condition Her lactic acid level is elevated and we will repeat this level in 2 hours as well Will continue to monitor her closely I suspect the patient's hypotension is multifactorial: She has been n.p.o. since midnight of 03/16/2024 and is likely dehydrated secondary to this The patient does take Lopressor twice daily which she did take this morning She is probably also intravascular dry from some surgical blood loss Additional recommendations will be forthcoming based on her clinical course as it unfolds Addendum: (9:30 PM) The patient was revisited at the bedside multiple times since the above-noted code purple. Her blood pressure has been running in the 90-105 systolic range. She has not been tachycardic. Repeat labs were ordered and her hemoglobin is now 9.1. Lactic acid is repeated and is 3.7. Symptomatically the patient reports improvement. I discussed with nursing staff and her SARAH drains were drained 1 time since the code purple with 60 cc of sanguinous fluid from the ri ght and 8 cc from the left. Will continue close clinical monitoring with the patient and continue intravenous fluids. Will also plan on following serial labs. Addendum: (1:15 AM) I was notified by nursing staff that SARAH drains were emptied. The patient had 150 cc of dark bloody drainage from the left SARAH drain and 45 cc of dark bloody drainage from the right which accumulated over the previous 4 hours. I presented to the bedside where patient noted that she felt well without lightheadedness or dizziness. At the time of my repeat visit I emptied her left SARAH drain for 60 additional cc of bloody drainage. I then reevaluated the patient approximately 15 minutes later and there was not a significant amount of accumulation in either SARAH drain. Addendum: (2:10 AM) Nursing staff noted that in the previous hour the left SARAH drain only drained 6 mL in the right SARAH drain drained approximately 18 mL. Blood pressure has been running in the 90 systolic range without tachycardia noted. The hospitalist service ordered a CT scan of the chest which showed patient had findings consistent with bilateral mastectomies with subcutaneous drainage catheters present. There is air and blood products noted in the operative field which was to be expected. Will continue to follow clinically
[2024-03-17 20:20] LABS: Albumin Globulin Ratio 1.6 (0.9-2); Creatinine Clr Calc Pharmacy 64.3 ml/min; Est GFR (African American) 75.6 ml/min; Est GFR (Non-African American) 65.2 ml/min; Globulin 2.2 gm/dl (2.5-4.0); Total Protein 5.8 gm/dl (6.0-8.3); Troponin I High Sensitivity 8.4 pg/ml (0-14)
[2024-03-17 21:42] LABS: Hematocrit (blood only) 30.8 % (37.0-47.0); Hemoglobin 9.1 g/dl (12.0-16.0); Mean Corpuscular Hemoglobin 18.5 pg (25.0-34.0); Mean Corpuscular Hgb Conc 29.5 g/dL (32.0-36.0); Mean Corpuscular Volume 62.6 fL (80.0-100.0); Platelet Count 178 K/uL (130-400); RDW Coefficient of Variation 17.7 % (11.5-14.5); RDW Standard Deviation 38.4 fL (36.4-46.3); Red Blood Count 4.92 M/uL (4.20-5.40); White Blood Count 16.99 K/ul (4.8-10.8)
--- NOTE | 2024-03-17 21:42 | Communication Note ---
Date of Service: March 17, 2024 Made aware by [facility] hospitalist of patient seen by their service on urgent consultation during code purple around 7 PM. Postop hypotension and hypoxemia. Patient PCP is Dr. Calle of [facility]. Patient without abdominal/flank complaints as per RN. CT angio chest: Bilateral mastectomies. Bilateral subcutaneous drainage catheters are present. Postoperative air and blood products are present, which are to be expected. UA WBC esterase Progressive lactic acidosis Ap Hypotension Complicated UTI No overt sepsis for now Monitor lactic acid response to IVF Hold home beta-dwaine Rx for now Urine CS, Zosyn Dr. Pettit will follow patient's progress.
[2024-03-17] MEDS: METOPROLOL SUCC 25MG EXT REL TAB PO SCH (21:49)
[2024-03-17] MEDS: MAGNESIUM SULFATE / D5W 1 GM/100 ML BAG IV ONE (22:22)
[2024-03-17 22:27] LABS: Basophils # (auto) 0.03 K/uL (0.00-0.20); Basophils % (auto) 0.2 %; Immature Granulocytes # (auto) 0.15 K/uL (0.01-0.20); Immature Granulocytes % (auto) 0.9 %; Lymphocytes # (auto) 0.88 K/uL (1.20-3.40); Lymphocytes % (auto) 5.2 %; Microcytosis Present; Monocytes # (auto) 0.97 K/uL (0.11-0.59); Monocytes % (auto) 5.7 %; Neutrophils # (auto) 14.96 K/uL (1.40-6.50); Ovalocytes 1+; Polychromasia 3+
[2024-03-17] MEDS: LACTATED RINGER'S 1,000 ML IV ONE (22:34)
[2024-03-17] MEDS: OPTIRAY 320 125ml IV ONE (23:29)
[2024-03-18 00:39] LABS: Appearance Urine Clear (Clear); Bacteria Urine Automated None Seen (None Seen); Bilirubin Urine Negative (Negative); Blood Urine Trace (Negative); Cast Urine Automated 0-2 /lpf (0-2); Epithelial Cell Urine Auto 0-2 /hpf (0-2); Glucose Urine UA Negative (Negative); Ketones Urine Negative (Negative); Leukocyte Esterase Urine 2+ (Negative); Nitrite Urine Negative (Negative); Protein Urine Negative (Negative); Specific Gravity Urine 1.044 (1.000-1.030); Urobilinogen Urine Negative (Negative); WBC Urine Automated 21-50 /hpf (0-5)
[2024-03-18 00:47] LABS: Base Excess VBG -0.8 mEq/L; HCO3 VBG 26 mmol/L; Oxygen Saturation VBG < 60.0 %; PCO2 VBG 52 mmHg (38-50); PO2 VBG 20 mmHg; pH VBG 7.31 (7.36-7.41)
[2024-03-18 01:05] LABS: Hematocrit (blood only) 28.3 % (37.0-47.0); Hemoglobin 8.3 g/dl (12.0-16.0)
--- NOTE | 2024-03-18 01:33 | CT Scan Report ---
Exam(s): CTA CHEST IV Amt: 115 ML EXAM: CT Angiography Chest With Intravenous Contrast CLINICAL HISTORY: Reason for exam: low o2. TECHNIQUE: Axial computed tomographic angiography images of the chest with intravenous contrast. CTDI is 19 mGy and DLP is 951.03 mGy-cm. Automated exposure control was utilized for the study. A dose lowering technique was utilized adhering to the principles of ALARA. MIP reconstructed images were created and reviewed. COMPARISON: No relevant prior studies available. FINDINGS: Pulmonary arteries: Unremarkable. No pulmonary embolism. Aorta: No acute findings. No thoracic aortic aneurysm. Lungs: Unremarkable. No mass. No consolidation. Pleural space: Unremarkable. No significant effusion. No pneumothorax. Heart: Unremarkable. No cardiomegaly. No significant pericardial effusion. No evidence of RV dysfunction. Bones/joints: No acute fracture. No dislocation. Soft tissues: Bilateral mastectomies. Bilateral subcutaneous drainage catheters are present. Postoperative air and blood products are present, which are to be expected. Lymph nodes: Unremarkable. No enlarged lymph nodes. IMPRESSION: Bilateral mastectomies. Bilateral subcutaneous drainage catheters are present. Postoperative air and blood products are present, which are to be expected. Electronically signed by: Cody Draper MD 03/18/24 01:32 AM
[2024-03-18] MEDS: PIPERACILLIN/TAZOBACTAM 4.5 GM/100 ML BAG IV ONE (01:36)
[2024-03-18] MEDS: LACTATED RINGER'S 1,000 ML IV SCH (04:01)
[2024-03-18 05:29] LABS: Calcium 8.6 mg/dl (8.6-10.3); Creatinine Clr Calc Pharmacy 72.3 ml/min; Est GFR (African American) 87.2 ml/min; Est GFR (Non-African American) 75.2 ml/min; Potassium 4.4 mmol/L (3.5-5.1)
[2024-03-18 05:31] LABS: Base Excess VBG 0 mEq/L; HCO3 VBG 27 mmol/L; Oxygen Saturation VBG < 60.0 %; PCO2 VBG 54 mmHg (38-50); PO2 VBG 28 mmHg; pH VBG 7.31 (7.36-7.41)
--- NOTE | 2024-03-18 05:31 | Surgery Progress Note ---
Date of Service March 18, 2024 Assessment & Plan (1) Breast cancer metastasized to axillary lymph node: Plan: Status post bilateral mastectomy on 03/17/2024 (postop day 1) Continue analgesics as needed Continue antiemetics as needed Events from last night noted and reviewed: No further significant events noted Patient's blood pressure has been running from 90-105 systolic No significant tachycardic events noted Maintain SARAH drains to self suction Serial labs followed last night showed a drop in patient's hemoglobin and hematocrit; will check a.m. labs when available and act accordingly based on these labs Mobilize as able Due to the drop in patient's hemoglobin and hematocrit and drain output would avoid chemical means of DVT prophylaxis for the present time as above. currently feeling well. minimal pain. no chest pain or SOB. SARAH's with small amounts of serosanguinous output. monitor drain output and labs. cont IVF. no ready for d/c. supportive care. Admission and Anticipated Discharge Date Admission Date: March 17, 2024 Subjective Patient is currently resting comfortably in bed. She denies any significant pain from her surgical incisions or drains. She denies shortness of breath. She denies any lightheadedness or dizziness. No further events noted since code purple which was called on 03/18/2024 Physical Exam Physical Exam: Mastectomy sites are covered with dressings. There did not appear to be any bloody drainage soaking through the dressings. The patient has bilateral SARAH drains in place that are draining dark bloody fluid.The right drain has drained approximately 231 cc since surgery. The left drain has drained approximately 352 cc cc since surgery. Results & Data Vital Signs (Past 12 Hours) Vital Signs Temp Pulse Pulse Pulse Resp BP BP 03/18/24 05:00 85 91/52 L 03/18/24 02:25 36.9 C 83 18 107/52 L 03/18/24 02:09 03/18/24 01:38 80 90/52 L 03/17/24 23:37 97/51 L 03/17/24 22:51 36.6 C 99 H 16 104/60 03/17/24 22:31 102/50 L 03/17/24 22:20 78/56 L 03/17/24 21:45 91 H 03/17/24 21:27 82 92/49 L 03/17/24 20:53 84 104/50 L 03/17/24 20:42 84 87/47 L 03/17/24 20:28 93 H 96/45 L 03/17/24 20:18 82 14 84/52 L 03/17/24 19:50 77 03/17/24 19:43 75 24 93/54 L 03/17/24 19:30 71 81/44 L 03/17/24 19:22 70 81/47 L 03/17/24 19:17 81 81/47 L 03/17/24 19:14 03/17/24 19:12 26 H 03/17/24 19:12 75 68/40 L 03/17/24 19:10 36.7 C 66 16 85/52 L 03/17/24 18:22 36.8 C 86 14 112/56 L Pulse Ox O2 Del Method O2 Flow Rate 03/18/24 05:00 95 Room Air 03/18/24 02:25 95 Room Air 03/18/24 02:09 Oxymask 1 03/18/24 01:38 92 Room Air 03/17/24 23:37 96 Oxymask 1 03/17/24 22:51 97 Oxymask 1 03/17/24 22:31 03/17/24 22:20 03/17/24 21:45 03/17/24 21:27 97 Oxymask 1 03/17/24 20:53 03/17/24 20:42 96 Oxymask 2 03/17/24 20:28 03/17/24 20:18 100 Oxymask 3 03/17/24 19:50 03/17/24 19:43 97 Oxymask 3 03/17/24 19:30 96 Oxymask 3 03/17/24 19:22 96 Oxymask 3 03/17/24 19:17 97 Oxymask 2.5 03/17/24 19:14 97 Oxymask 2.5 03/17/24 19:12 75 L Room Air 03/17/24 19:12 03/17/24 19:10 97 Oxymask 03/17/24 18:22 97 Oxymask 3 PG Care Time/CCT Total # of Minutes Spent Total Time Spent with Patient: Total time spent is greater than 50% in coordination of care (as documented) at patient's floor/unit and/or counseling patient: Coding Level of Care Code 85996 Post Operative Follow-Up Diagnoses Breast cancer metastasized to axillary lymph node C50.919; C77.3
[2024-03-18 05:54] LABS: Basophils # (auto) 0.04 K/uL (0.00-0.20); Basophils % (auto) 0.3 %; Eosinophils # (auto) 0.01 K/uL (0.00-0.50); Eosinophils % (auto) 0.1 %; Hematocrit (blood only) 28.1 % (37.0-47.0); Hemoglobin 8.4 g/dl (12.0-16.0); Hypochromasia Present; Immature Granulocytes % (auto) 0.8 %; Lymphocytes % (auto) 9.4 %; Mean Corpuscular Hemoglobin 18.7 pg (25.0-34.0); Mean Corpuscular Hgb Conc 29.9 g/dL (32.0-36.0); Mean Corpuscular Volume 62.6 fL (80.0-100.0); Microcytosis Present; Monocytes # (auto) 1.66 K/uL (0.11-0.59); Neutrophils % (auto) 76.4 %; Platelet Count 187 K/uL (130-400); Polychromasia 1+; RDW Coefficient of Variation 17.6 % (11.5-14.5); RDW Standard Deviation 38.5 fL (36.4-46.3); Red Blood Count 4.49 M/uL (4.20-5.40); Rouleaux 1+; Target Cells 1+; White Blood Count 12.81 K/ul (4.8-10.8)
[2024-03-18] MEDS: PIPERACILLIN/TAZOBACTAM 4.5 GM/100 ML BAG IV SCH (06:20)
[2024-03-18 06:55] LABS: Hypochromasia Present
--- NOTE | 2024-03-18 15:02 | Hospitalist Progress Note ---
Date of Service March 18, 2024 Assessment & Plan (1) Postoperative hypoxemia: Plan Hypotension -S/P bilateral mastectomy 03/17, hypotensive with systolic BP as low as 68 noted 03/17 -Symptomatic hypotension likely secondary to NPO status for ~22 hours -s/p IVF resuscitation and after diet resumed, pt feeling better. -Now reports improving dizziness and weakness. -c/w home metoprolol w/ holding parameter Hypoxemia, postoperative -Lungs clear on bedside assessment -Chest x-ray - no acute cardiopulmonary findings -No history of respiratory conditions, no baseline oxygen requirement -Currently on RA -Resolved. Increased blood lactic acid level: s/p ivf, resolved. Complicated UTI: c/w zosyn 03/18. follow urine Cx. S/P Bilateral Mastectomy -Patient underwent surgery on 03/[address] Sykes -Post-op management per surgical team History of HOCM -Follows with [facility] cardiology -Patient reports this was found incidentally, she was never symptomatic -ECHO EF 65-69% (04/2023) Diet: Regular, maintenace IVF VTE Prophylaxis: SCDs Dispo: PCU Code Status: Full Code Admission and Anticipated Discharge Date Admission Date: March 17, 2024 Subjective Patient was seen and examined at bedside. Patient was lying in bed, on room air, NAD, resting comfortably. Patient reports improvement in her dizziness/weakness, reports feeling better. Patient has not moved bowel, is afebrile, denied chest pain or cough. Reports eating okay. Physical Exam Physical Exam: Constitutional: well developed and well nourished Eyes: no pallor, no icte loly; no conjunctiv al abnormality ENMT: Ears: no external ear abnormality N ose: no external n ose abnormality oxymask in place Respiratory: normal respiratory effort, lungs mana ar to auscultation Cardiovascular: Rate/Rhythm: regul ar rate and regula r rhythm Chest (Breasts): Additional Comment s: Dressing c/d/i SARAH drains x2 in p lace , serosanguin ous outs noted. Skin: no rashes, warm an d dry Psychiatric: A+Ox3, euthymic af fect Results & Data Results & Data Vital Signs (Past 12 Hours) Vital Signs Temp Pulse Pulse Pulse Resp BP Pulse Ox 03/18/24 12:17 36.9 C 98 H 18 97/52 L 90 03/18/24 08:12 36.8 C 102 H 18 99/58 L 91 03/18/24 07:24 108 H 03/18/24 05:00 85 91/52 L 95 O2 Del Method 03/18/24 12:17 Room Air 03/18/24 08:12 Room Air 03/18/24 07:24 03/18/24 05:00 Room Air
--- NOTE | 2024-03-19 05:35 | Surgery Progress Note ---
Date of Service March 19, 2024 Assessment & Plan (1) Breast cancer metastasized to axillary lymph node: Plan: Status post bilateral mastectomy on 03/17/2024 (postop day #2) Continue analgesics and antiemetics as needed The patient has not had any recurrence of events/episodes that she experienced the first postoperative day: Patient's blood pressure has improved over the past 12 to 24 hours Continue SARAH drains to self suction Check a.m. labs when available Increase mobilization as able Continue diet as tolerated Continue to avoid chemical means of DVT prophylaxis for the present time due to drop in hemoglobin and hematocrit as above. feeling better today than yesterday. pain reasonable. she does live alone. bp better. still tachycardic. slight decrease in h/h but stabilized dressings changed. wounds look good. drains with serosanguinous output recommend one more day of observation. if no events likely d/c tomorrow. Admission and Anticipated Discharge Date Admission Date: March 17, 2024 Subjective Patient is currently resting comfortably in bed. She denies any chest pain or shortness of breath. She does note some tenderness near her surgical incisions. She does note that when she sits up she immediately gets some lightheadedness but this seems to resolve. She denies any nausea or vomiting. Physical Exam Physical Exam: Surgical dressing appears clean, dry, and intact. Bilateral SARAH drains are in place and draining bloody fluid which appears dark in nature.The right drain has drained approximately 70 cc overnight and the left drain has drained approximately 30 cc overnight Results & Data Vital Signs (Past 12 Hours) Vital Signs Temp Pulse Pulse Resp BP Pulse Ox O2 Del Method 03/19/24 04:19 36.6 C 100 H 18 116/62 94 Room Air 03/19/24 00:23 36.7 C 95 H 18 111/64 92 Room Air 03/18/24 21:50 88 03/18/24 20:30 36.8 C 105 H 18 114/56 L 92 Room Air PG Care Time/CCT Total # of Minutes Spent Total Time Spent with Patient: Total time spent is greater than 50% in coordination of care (as documented) at patient's floor/unit and/or counseling patient: Coding Level of Care Code 53510 Post Operative Follow-Up Diagnoses Breast cancer metastasized to axillary lymph node C50.919; C77.3
[2024-03-19 06:33] LABS: Hematocrit (blood only) 26.9 % (37.0-47.0); Hemoglobin 8.2 g/dl (12.0-16.0); Mean Corpuscular Hemoglobin 18.9 pg (25.0-34.0); Mean Corpuscular Hgb Conc 30.5 g/dL (32.0-36.0); Mean Corpuscular Volume 61.8 fL (80.0-100.0); Platelet Count 176 K/uL (130-400); RDW Coefficient of Variation 18.4 % (11.5-14.5); RDW Standard Deviation 38.9 fL (36.4-46.3); Red Blood Count 4.35 M/uL (4.20-5.40); White Blood Count 8.75 K/ul (4.8-10.8)
[2024-03-19 06:43] LABS: BUN Creatinine Ratio 24.4 (10-20); Calcium 8.3 mg/dl (8.6-10.3); Creatinine Clr Calc Pharmacy 74.1 ml/min; Est GFR (African American) 89.9 ml/min; Est GFR (Non-African American) 77.6 ml/min; Magnesium 1.9 mg/dl (1.7-2.4); Phosphorus 2.7 mg/dl (2.5-4.9); Potassium 4.2 mmol/L (3.5-5.1)
--- NOTE | 2024-03-19 11:29 | Hospitalist Progress Note ---
Date of Service March 19, 2024 Assessment & Plan (1) Postoperative hypoxemia: Plan Hypotension : Likely secondary to postoperative status and n.p.o. for 22 hours. Status post IV fluid. Resolved. Resume home metoprolol as heart rate elevated, blood pressure already better. Hypoxemia, postoperative: Resolved. Increased blood lactic acid level: s/p ivf, resolved. Complicated UTI: c/w zosyn 03/18. UCx contaminant. will treat total 5 days. Augmentin on DC. S/P Bilateral Mastectomy -Patient underwent surgery on 03/[address] Sykes -Post-op management per surgical team History of HOCM -Follows with [facility] cardiology -Patient reports this was found incidentally, she was never symptomatic -ECHO EF 65-69% (04/2023) Diet: Regular, maintenace IVF VTE Prophylaxis: SCDs Dispo: PCU Code Status: Full Code Admission and Anticipated Discharge Date Admission Date: March 17, 2024 Subjective Patient was seen and examined at bedside. Patient was lying in bed, on room air, NAD, resting comfortably. Patient reports improvement in her dizziness/weakness, reports feeling better. Patient is afebrile, denied chest pain or cough. Reports eating okay and has moved bowel. Physical Exam Physical Exam: Constitutional: well developed and well nourished Eyes: no pallor, no icte loly; no conjunctiv al abnormality ENMT: Ears: no external ear abnormality N ose: no external n ose abnormality oxymask in place Respiratory: normal respiratory effort, lungs mana ar to auscultation Cardiovascular: Rate/Rhythm: regul ar rate and regula r rhythm Chest (Breasts): Additional Comment s: Dressing c/d/i SARAH drains x2 in p lace , serosanguin ous outs noted. Skin: no rashes, warm an d dry Psychiatric: A+Ox3, euthymic af fect Results & Data Results & Data Vital Signs (Past 12 Hours) Vital Signs Temp Pulse Pulse Resp BP Pulse Ox O2 Del Method 03/19/24 10:59 36.8 C 100 H 16 128/65 96 Room Air 03/19/24 08:00 99 H 03/19/24 07:00 36.6 C 93 H 20 120/66 93 Room Air 03/19/24 04:19 36.6 C 100 H 18 116/62 94 Room Air 03/19/24 00:23 36.7 C 95 H 18 111/64 92 Room Air
--- NOTE | 2024-03-19 12:01 | Billing Data ---
Date of Service March 17, 2024 Coding Level of Care Code 45730 IN/OBS CONSULT LVL 4,60M
--- NOTE | 2024-03-19 12:01 | Billing Data ---
Date of Service March 17, 2024 Coding Level of Care Code 79816 CRITICAL CARE 1ST 30-74M Additional Critical Care Time Total Critical Care Time: 35
--- NOTE | 2024-03-19 21:46 | Electrocardiogram Report ---
Test Reason : Blood Pressure : */* mmHG Vent. Rate : 74 BPM Atrial Rate : 74 BPM P-R Int : 150 ms QRS Dur : 86 ms QT Int : 430 ms P-R-T Axes : -14 21 94 degrees QTcB Int : 477 ms Normal sinus rhythm Septal infarct , age undetermined Abnormal ECG When compared with ECG of 19-Aug-2023 14:20, No significant change was found Confirmed by Ed Nolasco ([id number]) on 03/19/2024 9:46:09 PM Referred By: Samuel Sykes Confirmed By: Ed Nolasco
[2024-03-19] MEDS: traMADol HCL 50 MG TABLET PO PRN (22:28)
[2024-03-20] MEDS: ACETAMINOPHEN 325 MG TAB PO PRN (01:51)
[2024-03-20 03:36] VITALS: O2SAT 95
--- NOTE | 2024-03-20 07:13 | Surgery Progress Note ---
Date of Service March 20, 2024 Assessment & Plan (1) Breast cancer metastasized to axillary lymph node: Plan: Status post bilateral mastectomy on 03/17/2024 (postop day #3) She has been HD stable, hypertensive this am. This am CBC pending for this morning. Continue SARAH drains to self suction -F/U am lab when available this am. Increase mobilization. Continue diet as tolerated Continue to avoid chemical means of DVT prophylaxis for the present time due to drop in hemoglobin and hematocrit -Dispo: planning for d/c today pending CBC. Patient will follow up with me in the office on . Admission and Anticipated Discharge Date Admission Date: March 17, 2024 Subjective I have seen and examined the patient this am. She has been up and ambulating without N/V, lightheadedness or dizziness. Her pain is well controlled. Physical Exam Constitutional: not ill appearing, not in distress and not diaphoretic Respiratory: normal respiratory effort; no respiratory distress, no labored breathing and does not use accessory muscles Chest (Breasts): Additional Comments: Mastectomy sites intact with steri strips SARAH drains b/l. Left sero-sanguinous with more serous component, right SARAH more sanguinous, decreasing. There is some scattered bruising Results & Data Vital Signs (Past 12 Hours) Vital Signs Temp Pulse Pulse Resp BP Pulse Ox O2 Del Method 03/20/24 03:00 36.9 C 85 19 121/78 95 Room Air 03/19/24 22:05 83 03/19/24 22:00 36.8 C 80 18 143/81 H 93 Room Air 03/19/24 20:00 36.8 C 94 H 17 125/71 95 Room Air Laboratory Results pending PG Care Time/CCT Total # of Minutes Spent Total Time Spent with Patient: Total time spent is greater than 50% in coordination of care (as documented) at patient's floor/unit and/or counseling patient: Coding Level of Care Code 42359 Post Operative Follow-Up Diagnoses Breast cancer metastasized to axillary lymph node C50.919; C77.3
[2024-03-20 07:40] VITALS: TEMP 98.1
[2024-03-20 09:09] LABS: Hematocrit (blood only) 29.8 % (37.0-47.0); Hemoglobin 8.7 g/dl (12.0-16.0); Mean Corpuscular Hemoglobin 18.5 pg (25.0-34.0); Mean Corpuscular Hgb Conc 29.2 g/dL (32.0-36.0); Mean Corpuscular Volume 63.4 fL (80.0-100.0); Mean Platelet Volume 10.9 fL (9.4-12.4); Nucleated RBC # (auto) 0.02 K/uL (0.00-0.12); Nucleated RBC % (auto) 0.2 %; Platelet Count 185 K/uL (130-400); RDW Coefficient of Variation 18.9 % (11.5-14.5); RDW Standard Deviation 40.1 fL (36.4-46.3); White Blood Count 8.94 K/ul (4.8-10.8)
[2024-03-20 09:43] LABS: Basophils # (auto) 0.06 K/uL (0.00-0.20); Basophils % (auto) 0.7 %; Eosinophils # (auto) 0.39 K/uL (0.00-0.50); Eosinophils % (auto) 4.4 %; Hypochromasia Present; Immature Granulocytes # (auto) 0.12 K/uL (0.01-0.20); Immature Granulocytes % (auto) 1.3 %; Lymphocytes # (auto) 1.82 K/uL (1.20-3.40); Lymphocytes % (auto) 20.4 %; Microcytosis Present; Monocytes # (auto) 0.89 K/uL (0.11-0.59); Neutrophils # (auto) 5.66 K/uL (1.40-6.50); Neutrophils % (auto) 63.2 %; Polychromasia 1+
[2024-03-20 10:52] VITALS: BP 127/76; PULSE 77; RESP 20
--- NOTE | 2024-03-20 11:19 | Hospitalist Progress Note ---
Date of Service March 20, 2024 Assessment & Plan (1) Postoperative hypoxemia: Plan Hypotension : Likely secondary to postoperative status and n.p.o. for 22 hours. Status post IV fluid. Resolved. Resume home metoprolol as heart rate elevated, blood pressure already better. Hypoxemia, postoperative: Resolved. Increased blood lactic acid level: s/p ivf, resolved. Complicated UTI: c/w zosyn 03/18. UCx contaminant. will treat total 5 days. Augmentin on DC. S/P Bilateral Mastectomy -Patient underwent surgery on 03/[address] Sykes -Post-op management per surgical team -f/u Surgery on DC. pt was made aware. History of HOCM -Follows with [facility] cardiology -Patient reports this was found incidentally, she was never symptomatic -ECHO EF 65-69% (04/2023) Diet: Regular VTE Prophylaxis: SCDs Dispo: OK for dc from medicine POV. Code Status: Full Code Admission and Anticipated Discharge Date Admission Date: March 17, 2024 Subjective Patient was seen and examined at bedside. Patient was lying in bed, on room air, NAD, resting comfortably. Patient reports no dizziness/weakness, reports feeling better. Patient is afebrile, denied chest pain or cough. Reports eating okay and has moved bowel. Physical Exam Physical Exam: Constitutional: well developed and well nourished Eyes: no pallor, no icte loly; no conjunctiv al abnormality ENMT: Ears: no external ear abnormality N ose: no external n ose abnormality oxymask in place Respiratory: normal respiratory effort, lungs mana ar to auscultation Cardiovascular: Rate/Rhythm: regul ar rate and regula r rhythm Chest (Breasts): Additional Comment s: Dressing c/d/i SARAH drains x2 in p lace , serosanguin ous outs noted. Skin: no rashes, warm an d dry Psychiatric: A+Ox3, euthymic af fect Results & Data Results & Data Vital Signs (Past 12 Hours) Vital Signs Temp Pulse Pulse Resp BP Pulse Ox O2 Del Method 03/20/24 10:51 36.7 C 77 20 127/76 95 Room Air 03/20/24 10:24 36.7 C 96 H 85 16 149/79 H 95 03/20/24 07:37 36.7 C 96 H 16 149/79 H 95 Room Air 03/20/24 03:00 36.9 C 85 19 121/78 95 Room Air
--- NOTE | 2024-03-21 11:20 | Mammography Report ---
SPECIMEN RIGHT BREAST: 03/17/2024 COMPARISON: Comparison is made to exams dated: 02/09/2024 ultrasound biopsy, 02/09/2024 ultrasound bio psy, 02/11/2024 stereotactic biopsy, and 02/11/2024 mammogram - [facility]. Findings: A radiograph was performed of the right axillary surgical specimens. One of the specimens contains a lymph node with associated biopsy clip. Results were relayed to the surgeon over the tele phone in the operating room. IMPRESSION: SPECIMEN One of the imaged specimens contains the previously biopsied right axillary node with associated biop sy clip. Yumiko Mendoza M.D. /:03/17/2024 15:33:50 Optimization Consultant: OR Technologist, [facility]
--- NOTE | 2024-03-27 13:19 | Discharge Summary ---
Date of Service March 27, 2024 Admission HPI Per Admitting Provider b/l breast cancer and involved right axillary node metastasis. Arranged for b/l mastectomy and b/l SNB with completion of work up. Principal Diagnosis b/l breast cancer with single right axillary gloria mets. Discharge Exam Constitutional healthy appearing; no acute distress, not ill appearing and not diaphoretic Respiratory normal respiratory effort; no respiratory distress, no labored breathing and does not use accessory muscles Chest (Breasts) Additional Comments: surgically absent b/l s/p surgical excision. b/l Tavares drains present and functioning. Darker maroon sanguinous drainage from right TAVARES and more sero-sanguinous drainage from left TAVARES. Incisions with steri strips intact without evidence for compromise or infection and sites look well. 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 Brizuela presented to [facility] for b/l mastectomy. She had an extensive work up prior to the procedure as she presented with b/l breast cancer and advanced presentation for the right. Thankfully, her PET had been (-) for distant metastatic disease so we promptly moved forward with the plan for surgical control of the primary sites. She underwent b/l mastectomy with b/l SNB on 03/17/24 where 4 sentinel nodes were identified and dissected from each side. While a lengthy procedure due to the involvement of the work that needed to be done, she did well with the procedure. She was admitted postoperatively for observation. Later in the evening she had an episode of lightheadedness with decreased BP. This responded well to IVF rehydration. Labs obtained during this time revealed an H/H below her usual baseline. H/H remained relatively stable thereafter without the requirement for blood transfusion and was similar to the initial post op lab draw on the day of discharge without intervention. Ms Brizuela was preferred to stay through the remainder of the weekend during which she remained HD stable and was educated on drain and dressing care as she lives alone, had dressing, drain management concerns and wanted to be sure she was comfortable with her allowable mobility as per post mastectomy instructions and whether or not she might develop significant pain. Ms. Brizuela was discharged on Wednesday with outpatient follow up instructions. H/H on discharge 8.7/29.8. HD stable. Total Time Total Time Spent Total Time Spent (In Minutes): 30 Discharge Plan Discharge Items Patient Disposition: Home - Self-Care Reason For Visit: Bilateral Breast Cancer Discharge Diagnosis: bilateral breast mastectomy and bilateral sentinel lymph node biopsy Activity: Per Instructions section Lifting: No more than 5 pounds Bathing Comment: you must keep incisions dry; otherwise sponge bath as needed. no showers Exercise/Sports: Wait until after follow-up appointment Driving/Machine Use: no driving until cleared by the surgeon Non-emergency contact: Surgeon Call non-emergency contact if: you have any medication questions, your symptoms worsen, your pain is not controlled, you have a fever, your temperature is above 101.5, your wound has increased redness, your wound has increased drainage and your wound pain has increased Follow-up/Referrals: Samuel Sykes, [Physician] - (Please call to schedule follow up in clinic within 1-2 weeks ) Akbar Calle MD [Primary Care Provider] - 03/24/24 12:20 pm (Date & Time 03/24/2024 12:20 PM Provider Akbar Calle MD Department Family [facility] ) Diet: Regular Addtl Attending Provider Instructions: You will have small white bandages over your incisions called steri-strips. Please leave these in place. They will fall off on their own within 7-10 days. You may purchase Tylenol over the counter if needed for additional pain control over the next few days. Take per manufacturers instructions Avoid NSAIDS such as Ibuprofen until follow up Continue to wear your NACHO bandage over the next 2 days. After 2 days you may loosen it up so it is not as tight fitting for your comfort. . You may replace new gauze fluffed padding between your incisions and NACHO/ compressive Bra for comfort after 2 days and change as needed Please apply Ice to surgical area on for 20 minutes off for 20 minutes on over the next 3 days. After 3 days of ice you may use warm compresses for the next 3 days. You have surgical drains in place. Keep to bulb suction. Otherwise empty drains 2-3x/daily and record the output. Once they are less than 30cc/day for over 2 days you may call the office for consideration of removal. Care for the drains as you have been instructed prior to discharge You have been prescribed a small amount of additional Tramadol (narcotic pain medication) to get you through your post operative period. You may take 1 tablet orally every 4-6 hours, as needed for pain. Do not take any more than prescribed to you Pending Studies at Discharge: Yes Studies:: surgical pathology Stand-Alone Forms: [facility] Medications and DC Order Prescriptions: New tramadol 50 mg tablet 50 mg PO .q4h PRN (Reason: pain, for initial therapy, max 6 tabs/day) Qty: 15 0RF Continued metoprolol succinate 25 mg Tablet Extended Release 24 Hr 25 mg PO BID tramadol 50 mg tablet 50 mg PO Q6H PRN (Reason: pain, moderate) Qty: 30 0RF acetaminophen 500 mg Tablet 500 mg PO Q6H PRN (Reason: prn) diphenhydramine HCl [Benadryl] 25 mg Capsule 25 mg PO Q6H PRN (Reason: seasonal allergies) loratadine 10 mg Tablet 10 mg PO QAM PRN (Reason: prn) Discharge Orders: Discharge Order (Routine); Ordered 03/20/24 Ordered By: Samuel Sykes Admission Data Admit Date/Time: 03/17/24 15:01 Attending Provider: Samuel Sykes Admit Provider: Samuel Sykes Primary Care Provider: Akbar Calle Other Providers: Reynaldo London; Teodoro Emmanuel; Mago Head; Justen Ellis; Pancho Pettit Other Interventions: Discharge Summary Assessment (RN) Last Done: 03/20/24 10:24 Coding Level of Care Code 66253 INP/OBS DISCH >30 MIN Diagnoses Ductal carcinoma in situ of left breast D05.12 Carcinoma of right breast metastatic to axillary lymph node C50.911; C77.3 Carcinoma of lower-outer quadrant of right breast in female, estrogen receptor positive C50.511; Z17.0
== END 2024-03-20 13:10 | disposition home or self-care (01) | DRG 580 ==
LOC: ASU 06:59 → 3W 15:01 → 2E 20:22